=== PATIENT | male | born 1995 | race Caucasian/White ===

== ENCOUNTER 2017-01-27 11:58 | Emergency (ER) | payer OTHER ==
[2017-01-27 12:15] VITALS: O2SAT 98
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
[2017-01-27 12:50] LABS: COMPLETE URINE MICROSCOPIC? YES; Collection Type CCMS
[2017-01-27 13:09] LABS: Bacteria MODERATE /HPF (NEGATIVE); Mucus MODERATE /HPF (NEGATIVE); WBC 0-2 /HPF (0-5)
[2017-01-27] MEDS ORDERED: TYLENOL 325 MG PO STA (13:14)
[2017-01-27] MEDS ORDERED: TYLENOL 325 MG ONE (13:17)
[2017-01-27 13:47] VITALS: BP 138/90; PULSE 90
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
== END 2017-01-27 13:45 | disposition home or self-care (01) ==
LOC: ED 11:58
DX: S00.83XA Contusion of other part of head, initial encounter (principal); R51 Headache; S61.215A Laceration without foreign body of left ring finger without damage to nail, initial encounter; Y08.89XA Assault by other specified means, initial encounter
CPT/HCPCS: 70450; 70486; 81000; 99284; A9270-GY

== ENCOUNTER 2019-09-28 17:30 | Observation (INO) | payer BC, OTHER ==
[2019-09-28] MEDS ORDERED: CLINDAMYCIN-D5W 600 MG/50 ML*** 600 MG/50 ML BAG IV STA (17:59)
[2019-09-28] MEDS ORDERED: BENADRYL 50 MG/ML IV ONE (18:00)
[2019-09-28] MEDS ORDERED: MORPHINE SULFATE 4 MG INJ IV ONE (18:00)
[2019-09-28] MEDS ORDERED: TORAdol 30 mg Injection IV ONE (18:00)
--- NOTE | 2019-09-28 18:03 | ERPHSYRPT ---
- History of Present Illness Time Seen by Provider: 09/28/19 17:40 Source: patient Exam Limitations: no limitations Patient Subjective Stated Complaint: pt here for an abscess to right wrist area since saturday. he is unsure of what caused it, no fever, Triage Nursing Assessment: pt alert,walked in, resp easy, skin w/d/p. has abscess to right wrist that is dried serous drainage, right forearm red,warm and swollen Physician History: Patient has red, swollen right forearm for the past three days. He does not recall any injuries or bites by any animals or insects. Timing/Duration: day(s) (3) Quality: painful Severity: severe Location: extremities (right forearm) Possible Causes: no cause identified Modifying Factors: Worsens With: other (palpation exacerbates the pain) Associated Symptoms: blisters (single at the right wrist ), change in skin texture (left forearm), swelling/mass/lumps (left forearm), No difficulty breathing, No fever, No flushing, No headache, No hives, No jaundice, No malaise , No nasal congestion, No numbness, No pallor, No paresthesia, No petechiae, No rash, No sore throat, No tingling Allergies/Adverse Reactions: Penicillins Allergy (Verified 09/28/19 17:43) Home Medications: PANTOPRAZOLE 40 mg Tablet [Protonix 40MG Tablet] 40 mg DAILY 09/28/19 [ History] Sertraline HCl [Zoloft] 100 mg DAILY 09/28/19 [History] Hx Tetanus, Diphtheria Vaccination/Date Given: No Hx Influenza Vaccination/Date Given: No Hx Pneumococcal Vaccination/Date Given: No Immunizations Up to Date: Yes - Review of Systems Constitutional: No Fever, No Chills, No Fatigue Eyes: No Eye Pain, No Vision Changes Ears, Nose, & Throat: No Symptoms Respiratory: No Cough, No Dyspnea Cardiac: No Chest Pain, No Edema, No Syncope Abdominal/Gastrointestinal: No Abdominal Pain, No Nausea, No Vomiting, No Diarrhea Genitourinary Symptoms: No Dysuria, No Flank Pain Musculoskeletal: No Back Pain, No Neck Pain Skin: Induration (right forearm), No Rash Neurological: No Dizziness, No Focal Weakness, No Sensory Changes Psychological: No Symptoms Endocrine: No Symptoms Hematologic/Lymphatic: No Easy Bleeding, No Easy Bruising All Other Systems: Reviewed and Negative - Past Medical History Pertinent Past Medical History: Yes Neurological History: No Pertinent History ENT History: No Pertinent History Cardiac History: No Pertinent History Respiratory History: No Pertinent History Endocrine Medical History: No Pertinent History Musculoskeletal History: No Pertinent History, Other GI Medical History: GERD History: No Pertinent History Psycho-Social History: Depression Male Reproductive Disorders: No Pertinent History Other Medical History: heart murmur - Past Surgical History Past Surgical History: Yes Neuro Surgical History: No Pertinent History Cardiac: No Pertinent History Respiratory: No Pertinent History Gastrointestinal: No Pertinent History Genitourinary: No Pertinent History Musculoskeletal: Orthopedic Surgery Male Surgical History: No Pertinent History Other Surgical History: finger x2 - Social History Smoking Status: Current every day smoker How long have you smoked: 4 YEARS Exposure to second hand smoke: Yes Drug Use: none Patient Lives Alone: No - Nursing Vital Signs Nursing Vital Signs: Pain Scale Pain Intensity 7 - Physical Exam General Appearance: no apparent distress, alert Eye Exam: PERRL/EOMI, eyes nml inspection Ears, Nose, Throat Exam: normal ENT inspection, pharynx normal, moist mucous membranes Neck Exam: normal inspection, non-tender, supple, full range of motion Respiratory Exam: normal breath sounds, lungs clear, airway intact, No respiratory distress Cardiovascular Exam: regular rate/rhythm, normal heart sounds, capillary refill <2 sec Gastrointestinal/Abdomen Exam: soft, No tenderness, No mass Back Exam: normal inspection, normal range of motion, No CVA tenderness, No vertebral tenderness Extremity Exam: normal inspection, normal range of motion Neurologic Exam: alert, oriented x 3, cooperative, perinatal coordinator II-XII nml as tested, normal mood/affect, sensation nml, No motor deficits, No sensory deficit Skin Exam: normal color, warm, dry, other (induration and erythema from the dorsum of the hand over the second metacarpal to erythema and induration of the volar aspect on the right forearm), No petechiae, No jaundice, No cyanosis, No laceration SpO2 Interpretation: normal O2 Delivery: Room Air Procedures - Incision and Drainage Timeout: Performed Anesthesia: 1% Lidocaine cc's of anesthesia: 5 Blade Size: scalpel I & D Procedure: culture obtained, other (incision made over the single blister over the volar wrist; only purulent material expunged from the ulnar side of the blister at the site of the injection of the lidocaine with pressure around the area) Results: small amount pus (very minimal) - Course Nursing assessment & vital signs reviewed: Yes Ordered Tests: Active Orders 24 hr Category Date Time Status CBC W DIFF Stat Lab 09/28/19 18:15 Completed CMP Stat Lab 09/28/19 18:15 Completed CULTURE,ABSCESS Stat Lab 09/28/19 Uncollected Lactic Acid Stat Lab 09/28/19 17:59 Completed PROTIME WITH INR Stat Lab 09/28/19 18:15 Completed Transfer Order Routine Transfer 09/28/19 Ordered Medication Summary Discontinued Medications Generic Name Dose Route Start Last Admin Trade Name Freq PRN Reason Stop Dose Admin Diphenhydramine HCl 25 mg 09/28/19 18:00 09/28/19 18:05 Benadryl 50 Mg/Ml IV 09/28/19 18:01 25 mg STAT ONE Administration Diphenhydramine HCl Confirm 09/28/19 18:04 Benadryl 50 Mg/Ml Administered 09/28/19 18:05 Dose 50 mg .ROUTE .STK-MED ONE Clindamycin HCl/Dextrose 600 mg in 50 mls @ 100 mls/hr 09/28/19 17:59 18:48 Clindamycin-D5w 600 Mg/50 Ml IV 09/28/19 18:28 Infused STAT STA Infusion Clindamycin HCl/Dextrose Confirm 09/28/19 18:04 Clindamycin-D5w 600 Mg/50 Ml Administered 09/28/19 18:05 Dose 600 mg in 50 mls @ ud IV .STK-MED ONE Ketorolac Tromethamine 30 mg 09/28/19 18:00 09/28/19 18:05 Toradol 30 Mg Injection IV 09/28/19 18:01 30 mg STAT ONE Administration Ketorolac Tromethamine Confirm 09/28/19 18:04 Toradol 30 Mg Injection Administered 09/28/19 18:05 Dose 30 mg .ROUTE .STK-MED ONE Morphine Sulfate 4 mg 09/28/19 18:00 09/28/19 18:06 Morphine Sulfate 4 Mg Inj IV 09/28/19 18:01 4 mg STAT ONE Administration Morphine Sulfate Confirm 09/28/19 18:04 Morphine Sulfate 4 Mg Inj Administered 09/28/19 18:05 Dose 4 mg .ROUTE .STK-MED ONE Lab/Rad Data: Laboratory Result Diagrams 09/28/19 18:15 09/28/19 18:15 Laboratory Results 09/28/19 09/28/19 09/28/19 Range/Units 18:15 18:15 18:15 WBC 7.8 (4.0-10.5) K/mm3 RBC 4.63 (4.1-5.6) M/mm3 Hgb 13.6 (12.5-18.0) gm/dl Hct 40.7 L (42-50) % MCV 87.9 (78-100) fl MCH 29.4 (26-32) pg MCHC 33.4 (32-36) g/dl RDW 13.1 (11.5-14.0) % Plt Count 202 (150-450) K/mm3 MPV 9.7 H (6-9.5) fl Gran % 62.7 (36.0-66.0) % Eos # (Auto) 0.15 (0-0.5) Absolute Lymphs (auto) 1.75 (1.0-4.6) Absolute Monos (auto) 0.99 (0.0-1.3) Lymphocytes % 22.4 L (24.0-44.0) % Monocytes % 12.7 H (0.0-12.0) % Eosinophils % 1.9 (0.00-5.0) % Basophils % 0.3 (0.0-0.4) % Absolute Granulocytes 4.90 (1.4-6.9) Basophils # 0.02 (0-0.4) PT 14.4 H (8.83-12.87) SECONDS INR 1.27 (0.8-3.0) Sodium 139 (137-145) mmol/L Potassium 3.5 (3.5-5.1) mmol/L Chloride 101 (98-107) mmol/L Carbon Dioxide 29 (22-30) mmol/L Anion Gap 12.2 (5-15) MEQ/L BUN 14 (9-20) mg/dL Creatinine 0.81 (0.66-1.25) mg/dL Estimated GFR > 60.0 ML/MIN Glucose 86 (74-106) mg/dL Lactic Acid (0.4-2.0) Calcium 9.3 (8.4-10.2) mg/dL Total Bilirubin 1.00 (0.2-1.3) mg/dL AST 31 (17-59) U/L ALT 18 (0-50) U/L Alkaline Phosphatase 63 (38-126) U/L Serum Total Protein 7.7 (6.3-8.2) g/dL Albumin 4.1 (3.5-5.0) g/dL 09/28/19 Range/Units 17:59 WBC (4.0-10.5) K/mm3 RBC (4.1-5.6) M/mm3 Hgb (12.5-18.0) gm/dl Hct (42-50) % MCV (78-100) fl MCH (26-32) pg MCHC (32-36) g/dl RDW (11.5-14.0) % Plt Count (150-450) K/mm3 MPV (6-9.5) fl Gran % (36.0-66.0) % Eos # (Auto) (0-0.5) Absolute Lymphs (auto) (1.0-4.6) Absolute Monos (auto) (0.0-1.3) Lymphocytes % (24.0-44.0) % Monocytes % (0.0-12.0) % Eosinophils % (0.00-5.0) % Basophils % (0.0-0.4) % Absolute Granulocytes (1.4-6.9) Basophils # (0-0.4) PT (8.83-12.87) SECONDS INR (0.8-3.0) Sodium (137-145) mmol/L Potassium (3.5-5.1) mmol/L Chloride (98-107) mmol/L Carbon Dioxide (22-30) mmol/L Anion Gap (5-15) MEQ/L BUN (9-20) mg/dL Creatinine (0.66-1.25) mg/dL Estimated GFR ML/MIN Glucose (74-106) mg/dL Lactic Acid 1.0 (0.4-2.0) Calcium (8.4-10.2) mg/dL Total Bilirubin (0.2-1.3) mg/dL AST (17-59) U/L ALT (0-50) U/L Alkaline Phosphatase (38-126) U/L Serum Total Protein (6.3-8.2) g/dL Albumin (3.5-5.0) g/dL - Progress Progress: unchanged Progress Note: 09/28/19 18:40 Due to the size of the cellulitis encompassing the entire volar aspect of the right forearm, patient requires multiple doses of IV antibiotics to allow oral antibiotics to become more effective as an outpatient, so patient will be placed in observation to [facility]. Discussed with : Alex (@18:09, discussed the patient with Dr Nolasco, patient's physician and hospitalist. Dr Nolasco accepted the patient for observation to the hospital for continued IV antibiotic therapy) Counseled pt/family regarding: lab results, diagnosis, need for follow-up - Departure Departure Disposition: Observation (to [facility]) Clinical Impression: Cellulitis of right forearm, Elevated blood pressure reading without diagnosis of hypertension Condition: Fair Critical Care Time: No Referrals: EDA NOLASCO MD [Primary Care Provider] - Instructions: MRSA (DC), Cellulitis (Skin Infection), Adult (DC)
[2019-09-28] MEDS ORDERED: MORPHINE SULFATE 4 MG INJ ONE (18:04)
[2019-09-28] MEDS ORDERED: TORAdol 30 mg Injection ONE (18:04)
[2019-09-28] MEDS ORDERED: BENADRYL 50 MG/ML ONE (18:04)
[2019-09-28] MEDS ORDERED: CLINDAMYCIN-D5W 600 MG/50 ML*** 600 MG/50 ML BAG IV ONE (18:04)
[2019-09-28 18:51] LABS: BASOPHIL % 0.3 % (0.0-0.4); Basophil (Absolute #) 0.02 (0-0.4); Eosinophil % 1.9 % (0.00-5.0); Eosinophil (Absolute #) 0.15 (0-0.5); Hematocrit 40.7 % (42-50); Hemoglobin 13.6 gm/dl (12.5-18.0); Lymphocyte (Absolute #) 1.75 (1.0-4.6); Lymphocytes % 22.4 % (24.0-44.0); Mean Cell Volume 87.9 fl (78-100); Mean Corpuscular Hemoglobin 29.4 pg (26-32); Mean Corpuscular Hgb Concent. 33.4 g/dl (32-36); Mean Platelet Volume 9.7 fl (6-9.5); Monocyte (Absolute #) 0.99 (0.0-1.3); Monocytes % 12.7 % (0.0-12.0); Neutrophil % 62.7 % (36.0-66.0); Platelet Count 202 K/mm3 (150-450); Red Blood Count 4.63 M/mm3 (4.1-5.6); Red Cell Distribution Width 13.1 % (11.5-14.0); White Blood Count 7.8 K/mm3 (4.0-10.5)
[2019-09-28 19:04] LABS: INR 1.27 (0.8-3.0); PROTIME 14.4 SECONDS (8.83-12.87)
[2019-09-28 19:09] LABS: ALBUMIN 4.1 g/dL (3.5-5.0); ALKALINE PHOSPHATASE 63 U/L (38-126); ANION GAP 12.2 MEQ/L (5-15); BLOOD UREA NITROGEN 14 mg/dL (9-20); CHLORIDE 101 mmol/L (98-107); Calcium 9.3 mg/dL (8.4-10.2); Carbon Dioxide 29 mmol/L (22-30); Creatinine 1 0.81 mg/dL (0.66-1.25); Glucose 86 mg/dL (74-106); Potassium 3.5 mmol/L (3.5-5.1); SGOT/AST 31 U/L (17-59); SGPT/ALT 18 U/L (0-50); SODIUM 139 mmol/L (137-145); Total Protein 7.7 g/dL (6.3-8.2)
[2019-09-28] MEDS ORDERED: BENADRYL 50 MG/ML IV PRN (19:32)
[2019-09-28] MEDS ORDERED: TYLENOL 325 MG PO PRN (19:32)
[2019-09-28] MEDS: Sodium Chloride 0.9% 1000 ML 1,000 ML IV SCH (20:07)
[2019-09-28] MEDS: TORAdol 30 mg Injection IV PRN (21:34)
[2019-09-28] MEDS: Pepcid 20 MG PO SCH (21:36)
[2019-09-28] MEDS: CLINDAMYCIN-D5W 600 MG/50 ML*** 600 MG/50 ML BAG IV SCH (21:48)
[2019-09-29] MEDS: CLINDAMYCIN-D5W 600 MG/50 ML*** 600 MG/50 ML BAG IV SCH ×3 (00:01→20:59)
[2019-09-29 05:16] LABS: Absolute Neutrophil Ct (ANC) 5.57 (1.4-6.9); BASOPHIL % 0.4 % (0.0-0.4); Basophil (Absolute #) 0.03 (0-0.4); Eosinophil % 2.4 % (0.00-5.0); Hematocrit 42.1 % (42-50); Hemoglobin 14.2 gm/dl (12.5-18.0); Lymphocyte (Absolute #) 1.53 (1.0-4.6); Lymphocytes % 18.7 % (24.0-44.0); Mean Cell Volume 86.6 fl (78-100); Mean Corpuscular Hemoglobin 29.2 pg (26-32); Mean Corpuscular Hgb Concent. 33.7 g/dl (32-36); Mean Platelet Volume 9.8 fl (6-9.5); Monocyte (Absolute #) 0.86 (0.0-1.3); Monocytes % 10.5 % (0.0-12.0); Platelet Count 204 K/mm3 (150-450); Red Blood Count 4.86 M/mm3 (4.1-5.6); Red Cell Distribution Width 13.2 % (11.5-14.0); White Blood Count 8.2 K/mm3 (4.0-10.5)
[2019-09-29] MEDS: Sodium Chloride 0.9% 1000 ML 1,000 ML IV SCH ×2 (06:35→17:39)
--- NOTE | 2019-09-29 09:35 | PCM.HP ---
History of Present Illness - Chief Complaint Chief Complaint: right forearm pain and swelling History of Present Illness: is a 23 year old male came to ER with C/O red, swollen right forearm for the past three days. He does not recall any injuries or bites by any animals or insects. Timing/Duration: day(s) (3) Quality: painful Severity: severe Location: extremities (right forearm) Possible Causes: no cause identified Modifying Factors: Worsens With: other (palpation exacerbates the pain) Associated Symptoms: blisters (single at the right wrist ), change in skin texture (left forearm), swelling/mass/lumps (left forearm), No difficulty breathing, No fever, No flushing, No headache, No hives, No jaundice, No malaise , No nasal congestion, No numbness, No pallor, No paresthesia, No petechiae, No rash, No sore throat, No tingling - Review of Systems Constitutional: No Fever, No Chills Eyes: No Symptoms Ears, Nose, & Throat: No Symptoms Respiratory: No Cough, No Short Of Breath Cardiac: No Chest Pain, No Edema, No Syncope Abdominal/Gastrointestinal: No Abdominal Pain, No Nausea, No Vomiting, No Diarrhea Genitourinary Symptoms: No Dysuria Musculoskeletal: No Back Pain, No Neck Pain Skin: Cellulitis, Induration, No Rash Neurological: No Dizziness, No Focal Weakness, No Sensory Changes Psychological: No Symptoms Endocrine: No Symptoms Hematologic/Lymphatic: No Symptoms Immunological/Allergic: No Symptoms Medications & Allergies Home Medications: Home Medication List PANTOPRAZOLE 40 mg Tablet [Protonix 40MG Tablet] 40 mg DAILY 09/28/19 [ History Confirmed 09/28/19] Sertraline HCl [Zoloft] 100 mg DAILY 09/28/19 [History Confirmed 09/28/19] Allergies/Adverse Reactions: Allergies Allergy/AdvReac Type Severity Reaction Status Date / Time Penicillins Allergy Verified 09/28/19 17:43 - Past Medical History Past Medical History: Yes Neurological History: No Pertinent History ENT History: No Pertinent History Cardiac History: No Pertinent History Respiratory History: No Pertinent History Endocrine Medical History: No Pertinent History Musculoskelatal History: No Pertinent History, Other GI Medical History: GERD History: No Pertinent History Pyscho-Social History: Depression Male Reproductive Disorders: No Pertinent History Comment: heart murmur - Past Surgical History Past Surgical History: Yes Neuro Surgical History: No Pertinent History Cardiac History: No Pertinent History Respiratory Surgery: No Pertinent History GI Surgical History: No Pertinent History Genitourinary Surgical Hx: No Pertinent History Musculskeletal Surgical Hx: Orthopedic Surgery Male Surgical History: No Pertinent History Other Surgical History: finger x2 - Social History Smoking Status: Current every day smoker How long have you smoked: 4 YEARS Exposure to second hand smoke: Yes Alcohol: Occasionally Drug Use: none - Physical Exam Vital Signs: Vital Signs - 24 hr Temp Pulse Resp BP Pulse Ox 09/29/19 08:00 98.2 F 62 16 126/80 98 09/29/19 04:00 97.7 F 62 16 129/81 98 09/29/19 00:00 98.1 F 67 16 124/78 98 09/28/19 20:04 98.2 F 86 18 155/98 98 09/28/19 19:36 98.2 F 86 20 155/98 98 General Appearance: no apparent distress, alert Neurologic Exam: alert, oriented x 3, cooperative, normal mood/affect, nml cerebellar function, nml station & gait, sensation nml, No motor deficits Eye Exam: PERRL/EOMI, eyes nml inspection Ears, Nose, Throat Exam: normal ENT inspection, TMs normal, pharynx normal, moist mucous membranes Neck Exam: normal inspection, non-tender, supple, full range of motion Respiratory Exam: normal breath sounds, lungs clear, No respiratory distress Cardiovascular Exam: regular rate/rhythm, normal heart sounds, normal peripheral pulses Gastrointestinal/Abdomen Exam: soft, normal bowel sounds, No tenderness, No mass Back Exam: normal inspection, normal range of motion, No CVA tenderness, No vertebral tenderness Extremity Exam: normal inspection, normal range of motion, pelvis stable, inflammation, swelling, tenderness Skin Exam: normal color, warm, dry, No rash Wound Assessment: Skin/Wound Assessment Wound/Incision Assessment Start: 09/28/19 19: 33 Text: Status: Active Freq: Q6H Protocol: Document 09/29/19 02:00 EG (Rec: 09/29/19 02:45 EG [id number]) Wound/Incision Assessment Right Wrist Wound Assessment Shift Assessment Wound Type abscess Dressing Status Dry & Intact Primary Dressing Gauze Pads Lymphatic Exam: No adenopathy Results - Labs Lab/Micro Results: Lab Results-Last 24 Hours 09/28/19 09/28/19 09/28/19 Range/Units 17:59 18:15 18:15 WBC 7.8 (4.0-10.5) K/mm3 RBC 4.63 (4.1-5.6) M/mm3 Hgb 13.6 (12.5-18.0) gm/dl Hct 40.7 L (42-50) % MCV 87.9 (78-100) fl MCH 29.4 (26-32) pg MCHC 33.4 (32-36) g/dl RDW 13.1 (11.5-14.0) % Plt Count 202 (150-450) K/mm3 MPV 9.7 H (6-9.5) fl Gran % 62.7 (36.0-66.0) % Eos # (Auto) 0.15 (0-0.5) Absolute Lymphs (auto) 1.75 (1.0-4.6) Absolute Monos (auto) 0.99 (0.0-1.3) Lymphocytes % 22.4 L (24.0-44.0) % Monocytes % 12.7 H (0.0-12.0) % Eosinophils % 1.9 (0.00-5.0) % Basophils % 0.3 (0.0-0.4) % Absolute Granulocytes 4.90 (1.4-6.9) Basophils # 0.02 (0-0.4) PT (8.83-12.87) SECONDS INR (0.8-3.0) Sodium 139 (137-145) mmol/L Potassium 3.5 (3.5-5.1) mmol/L Chloride 101 (98-107) mmol/L Carbon Dioxide 29 (22-30) mmol/L Anion Gap 12.2 (5-15) MEQ/L BUN 14 (9-20) mg/dL Creatinine 0.81 (0.66-1.25) mg/dL Estimated GFR > 60.0 ML/MIN Glucose 86 (74-106) mg/dL Lactic Acid 1.0 (0.4-2.0) Calcium 9.3 (8.4-10.2) mg/dL Total Bilirubin 1.00 (0.2-1.3) mg/dL AST 31 (17-59) U/L ALT 18 (0-50) U/L Alkaline Phosphatase 63 (38-126) U/L Serum Total Protein 7.7 (6.3-8.2) g/dL Albumin 4.1 (3.5-5.0) g/dL 09/28/19 09/29/19 Range/Units 18:15 04:47 WBC 8.2 (4.0-10.5) K/mm3 RBC 4.86 (4.1-5.6) M/mm3 Hgb 14.2 (12.5-18.0) gm/dl Hct 42.1 (42-50) % MCV 86.6 (78-100) fl MCH 29.2 (26-32) pg MCHC 33.7 (32-36) g/dl RDW 13.2 (11.5-14.0) % Plt Count 204 (150-450) K/mm3 MPV 9.8 H (6-9.5) fl Gran % 68.0 H (36.0-66.0) % Eos # (Auto) 0.20 (0-0.5) Absolute Lymphs (auto) 1.53 (1.0-4.6) Absolute Monos (auto) 0.86 (0.0-1.3) Lymphocytes % 18.7 L (24.0-44.0) % Monocytes % 10.5 (0.0-12.0) % Eosinophils % 2.4 (0.00-5.0) % Basophils % 0.4 (0.0-0.4) % Absolute Granulocytes 5.57 (1.4-6.9) Basophils # 0.03 (0-0.4) PT 14.4 H (8.83-12.87) SECONDS INR 1.27 (0.8-3.0) Sodium (137-145) mmol/L Potassium (3.5-5.1) mmol/L Chloride (98-107) mmol/L Carbon Dioxide (22-30) mmol/L Anion Gap (5-15) MEQ/L BUN (9-20) mg/dL Creatinine (0.66-1.25) mg/dL Estimated GFR ML/MIN Glucose (74-106) mg/dL Lactic Acid (0.4-2.0) Calcium (8.4-10.2) mg/dL Total Bilirubin (0.2-1.3) mg/dL AST (17-59) U/L ALT (0-50) U/L Alkaline Phosphatase (38-126) U/L Serum Total Protein (6.3-8.2) g/dL Albumin (3.5-5.0) g/dL Assessment/Plan (1) Cellulitis of right forearm Current Visit: Yes Status: Acute Assessment & Plan: Last Vital Signs Temp 98.2 F 09/29/19 08:00 Pulse 62 09/29/19 08:00 Resp 16 09/29/19 08:00 BP 126/80 09/29/19 08:00 Pulse Ox 98 09/29/19 08:00 Allergies Penicillins Allergy (Verified 09/28/19 17:43) Active Medications Acetaminophen (Tylenol 325 Mg) 325 mg PO Q4H PRN PRN PRN Reason: PAIN, FEVER, HEADACHE Stop: 10/28/19 19:31 Diphenhydramine HCl (Benadryl 50 Mg/Ml) 25 mg IV Q6H PRN PRN PRN Reason: ITCHING Stop: 10/28/19 19:31 Famotidine (Pepcid 20 Mg) 20 mg PO BID DOUGLAS Stop: 10/28/19 21:59 Last Admin: 09/28/19 21:36 Dose: 20 mg Clindamycin HCl/Dextrose (Clindamycin-D5w 600 Mg/50 Ml) 600 mg in 50 mls @ 100 mls/hr IV Q8HT DOUGLAS Stop: 10/28/19 21:59 Last Admin: 09/29/19 00:01 Dose: 100 mls/hr Sodium Chloride (Sodium Chloride 0.9% 1000 Ml) 1,000 mls @ 100 mls/hr IV .Q10H DOUGLAS Stop: 10/28/19 19:31 Last Admin: 09/29/19 06:35 Dose: 100 mls/hr Ketorolac Tromethamine (Toradol 30 Mg Injection) 30 mg IV Q6H PRN PRN PRN Reason: PAIN Stop: 09/29/19 18:29 Last Admin: 09/28/19 21:34 Dose: 30 mg Pantoprazole Sodium (Protonix 40mg Tablet) 40 mg PO DAILY DOUGLAS Stop: 10/29/19 09:59 Sertraline HCl (Zoloft 50 Mg Tablet) 100 mg PO DAILY DOUGLAS Stop: 10/29/19 09:59 Intake & Output 09/28/19 09/29/19 11:59 11:59 Intake Total 1945 Output Total 350 Balance 1595 Weight 78 kg Orders 09/28/19 20:32 Nutritional Admission Screen 09/29/19 10:00 PANTOPRAZOLE 40 mg Tablet [Protonix 40MG Tablet] 40 mg PO DAILY Sertraline HCl 50 mg [Zoloft 50 mg Tablet] 100 mg PO DAILY Lab Tests 09/28/19 09/28/19 09/28/19 17:59 18:15 18:15 WBC 7.8 RBC 4.63 Hgb 13.6 Hct 40.7 L MCV 87.9 MCH 29.4 MCHC 33.4 RDW 13.1 Plt Count 202 MPV 9.7 H Gran % 62.7 Eos # (Auto) 0.15 Absolute Lymphs (auto) 1.75 Absolute Monos (auto) 0.99 Lymphocytes % 22.4 L Monocytes % 12.7 H Eosinophils % 1.9 Basophils % 0.3 Absolute Granulocytes 4.90 Basophils # 0.02 PT INR Sodium 139 Potassium 3.5 Chloride 101 Carbon Dioxide 29 Anion Gap 12.2 BUN 14 Creatinine 0.81 Estimated GFR > 60.0 Glucose 86 Lactic Acid 1.0 Calcium 9.3 Total Bilirubin 1.00 AST 31 ALT 18 Alkaline Phosphatase 63 Serum Total Protein 7.7 Albumin 4.1 09/28/19 09/29/19 18:15 04:47 WBC 8.2 RBC 4.86 Hgb 14.2 Hct 42.1 MCV 86.6 MCH 29.2 MCHC 33.7 RDW 13.2 Plt Count 204 MPV 9.8 H Gran % 68.0 H Eos # (Auto) 0.20 Absolute Lymphs (auto) 1.53 Absolute Monos (auto) 0.86 Lymphocytes % 18.7 L Monocytes % 10.5 Eosinophils % 2.4 Basophils % 0.4 Absolute Granulocytes 5.57 Basophils # 0.03 PT 14.4 H INR 1.27 Sodium Potassium Chloride Carbon Dioxide Anion Gap BUN Creatinine Estimated GFR Glucose Lactic Acid Calcium Total Bilirubin AST ALT Alkaline Phosphatase Serum Total Protein Albumin Code(s): L03.113 - CELLULITIS OF RIGHT UPPER LIMB
[2019-09-29] MEDS ORDERED: ZOLOFT 50 MG TABLET PO SCH (10:00)
[2019-09-29] MEDS ORDERED: Protonix 40MG Tablet PO SCH (10:00)
[2019-09-29] MEDS: Pepcid 20 MG PO SCH ×2 (11:50→20:59)
[2019-09-29] MEDS: TORAdol 30 mg Injection IV PRN (13:55)
[2019-09-29] MEDS ORDERED: TORAdol 30 mg Injection IV PRN (20:46)
[2019-09-30] MEDS: CLINDAMYCIN-D5W 600 MG/50 ML*** 600 MG/50 ML BAG IV SCH (05:31)
[2019-09-30 07:46] VITALS: BP 120/77; PULSE 62; O2SAT 96
--- NOTE | 2019-09-30 08:24 | PCM.DS ---
Discharge Summary Date of Admission: 09/28/19 19:27 Admitting Physician: EDA NOLASCO Primary Care Provider: EDA NOLASOC Allergies Allergies Penicillins Allergy (Verified 09/28/19 17:43) Hospital Summary - Hospital Course Hospital Course: Chief Complaint Diagnosis right forearm pain and swelling Allergies Allergy/AdvReac Type Severity Reaction Status Date / Time Penicillins Allergy Verified 09/28/19 17:43 Vital Signs (Last 24 hours) Temp Pulse Resp BP Pulse Ox 09/30/19 07:46 97.8 F 62 16 120/77 96 09/30/19 03:38 98.2 F 51 L 16 118/72 98 09/30/19 00:03 98.1 F 59 L 16 120/76 98 09/29/19 19:46 97.5 F 77 16 125/76 97 09/29/19 16:00 98.5 F 69 16 127/80 97 09/29/19 12:00 98.3 F 60 18 124/70 98 Home Medications Medication Instructions Recorded Confirmed Last Taken Type PANTOPRAZOLE 40 mg Tablet 40 mg DAILY 09/28/19 09/28/19 09/28/19 History [Protonix 40MG Tablet] Sertraline HCl [Zoloft] 100 mg DAILY 09/28/19 09/28/19 09/28/19 History Current Medications Generic Name Dose Route Start Last Admin Trade Name Freq PRN Reason Stop Dose Admin Acetaminophen 325 mg 09/28/19 19:32 Tylenol 325 Mg PO 10/28/19 19:31 Q4H PRN PRN PAIN, FEVER, HEADACHE Diphenhydramine HCl 25 mg 09/28/19 19:32 Benadryl 50 Mg/Ml IV 10/28/19 19:31 Q6H PRN PRN ITCHING Famotidine 20 mg 09/28/19 22:00 09/29/19 20:59 Pepcid 20 Mg PO 10/28/19 21:59 20 mg BID DOUGLAS Administration Clindamycin HCl/Dextrose 600 mg in 50 mls @ 100 mls/hr 09/28/19 22:00 05:31 Clindamycin-D5w 600 Mg/50 Ml IV 10/28/19 21:59 100 mls/hr Q8HT DOUGLAS Administration Sodium Chloride 1,000 mls @ 100 mls/hr 09/28/19 19:32 09/29/19 17:39 Sodium Chloride 0.9% 1000 Ml IV 10/28/19 19:31 100 mls/hr .Q10H DOUGLAS Administration Ketorolac Tromethamine 30 mg 09/29/19 20:46 09/29/19 20:55 Toradol 30 Mg Injection IV 10/04/19 20:45 30 mg Q6H PRN PRN Administration PAIN Pantoprazole Sodium 40 mg 09/29/19 10:00 09/29/19 11:50 Protonix 40mg Tablet PO 10/29/19 09:59 40 mg DAILY DOUGLAS Administration Sertraline HCl 100 mg 09/29/19 10:00 09/29/19 11:50 Zoloft 50 Mg Tablet PO 10/29/19 09:59 100 mg DAILY DOUGLAS Administration Discontinued Medications Generic Name Dose Route Start Last Admin Trade Name Freq PRN Reason Stop Dose Admin Diphenhydramine HCl 25 mg 09/28/19 18:00 09/28/19 18:05 Benadryl 50 Mg/Ml IV 09/28/19 18:01 25 mg STAT ONE Administration Diphenhydramine HCl Confirm 09/28/19 18:04 Benadryl 50 Mg/Ml Administered 09/28/19 18:05 Dose 50 mg .ROUTE .STK-MED ONE Clindamycin HCl/Dextrose 600 mg in 50 mls @ 100 mls/hr 09/28/19 17:59 18:48 Clindamycin-D5w 600 Mg/50 Ml IV 09/28/19 18:28 Infused STAT STA Infusion Clindamycin HCl/Dextrose Confirm 09/28/19 18:04 Clindamycin-D5w 600 Mg/50 Ml Administered 09/28/19 18:05 Dose 600 mg in 50 mls @ ud IV .STK-MED ONE Ketorolac Tromethamine 30 mg 09/28/19 18:00 09/28/19 18:05 Toradol 30 Mg Injection IV 09/28/19 18:01 30 mg STAT ONE Administration Ketorolac Tromethamine Confirm 09/28/19 18:04 Toradol 30 Mg Injection Administered 09/28/19 18:05 Dose 30 mg .ROUTE .STK-MED ONE Ketorolac Tromethamine 30 mg 09/29/19 02:17 09/29/19 13:55 Toradol 30 Mg Injection IV 09/29/19 18:29 30 mg Q6H PRN PRN Administration PAIN Morphine Sulfate 4 mg 09/28/19 18:00 09/28/19 18:06 Morphine Sulfate 4 Mg Inj IV 09/28/19 18:01 4 mg STAT ONE Administration Morphine Sulfate Confirm 09/28/19 18:04 Morphine Sulfate 4 Mg Inj Administered 09/28/19 18:05 Dose 4 mg .ROUTE .STK-MED ONE Intake & Output (Last 24 hours) 09/27/19 09/28/19 09/29/19 09/30/19 11:59 11:59 11:59 11:59 Intake Total 1945 3209 Output Total 350 Balance 1595 3209 Weight 78 kg 71.7 kg Microbiology Results (Last 24 hours) 09/28/19 Unknown Arm - Right Lower Abscess Culture - Final Staphylococcus Aureus Orders (Last 24 hours) Category Date Time Status KETOROLAC trometh 30 mg Inj [TORAdol 30 mg Injection Med 09/29/19 20:46 Active ] 30 mg IV Q6H PRN PRN PANTOPRAZOLE 40 mg Tablet [Protonix 40MG Tablet] Med 09/29/19 10:00 Active 40 mg PO DAILY Sertraline HCl 50 mg [Zoloft 50 mg Tablet] Med 09/29/19 10:00 Active 100 mg PO DAILY Patient Care Notes (Last 24 hours) 09/29/19 20:45 Nursing Note by Kylie Juares Received call from Dr. Nolasco, new order to continue Toradol at previous dose. Initialized on 09/29/19 20:45 - END OF NOTE 09/29/19 20:39 Nursing Note by Kylie Juares Patient requesting pain relief, only active order is 325 mg tylenol, [address] Nolasco house and cell with no answer, unable to leave message. Will try again. Initialized on 09/29/19 20:39 - END OF NOTE 09/29/19 13:00 (created 09/29/19 13:55) Case Management Note by Daniela Dawkins CALLED PT'S MOM PER PT REQUEST. CALLED [employer], AND THEY REPORTED THAT THEY NEED TO CALL REGARDING PLAN. PER LUCIA BRITO, PT'S MOM, REPORTS THAT PT NO LONGER IS ON HER INSURANCE, THAT HE ONLY HAS THE [employer] HIP PLAN. ENCOURAGED PT/MOM TO CALL AND REPORT THIS TO [employer] FOR THEM TO UPDATE THEIR RECORDS. Initialized on 09/29/19 13:55 - END OF NOTE 09/29/19 09:20 (created 09/29/19 13:52) Case Management Note by Daniela Dawkins DR. ROUNDED AND EVALUATED AND DISCUSSED PLAN OF CARE WITH PT. VERBALIZED UNDERSTANDING OF ALL INFORMATION. WOUND CULTURE PENDING. CONTINUE IV ABX. NO ADDNL NEEDS IDENTIFIED AT PRESENT TIME. Initialized on 09/29/19 13:52 - END OF NOTE - Vitals & Intake/Output Vital Signs: Vital Signs Temperature 97.8 F 09/30/19 07:46 Pulse Rate 62 09/30/19 07:46 Respiratory Rate 16 09/30/19 07:46 Blood Pressure 120/77 09/30/19 07:46 O2 Sat by Pulse Oximetry 96 09/30/19 07:46 Intake & Output: Intake & Output 09/27/19 09/28/19 09/29/19 09/30/19 11:59 11:59 11:59 11:59 Intake Total 1945 3209 Output Total 350 Balance 1595 3209 Weight 78 kg 71.7 kg - Lab Result Diagrams: 09/29/19 04:47 09/28/19 18:15 Micro Results-Entire Visit: Microbiology 09/28/19 Unknown Abscess Culture - Final Arm - Right Lower Staphylococcus Aureus Discharge Exam General Appearance: no apparent distress, alert Neurologic Exam: alert, oriented x 3, cooperative, normal mood/affect, nml cerebellar function, sensation nml, No motor deficits Eye Exam: PERRL, EOMI, eyes nml inspection Ears, Nose, Throat Exam: normal ENT inspection, pharynx normal, moist mucous membranes Neck Exam: normal inspection, non-tender, supple, full range of motion Respiratory Exam: normal breath sounds, lungs clear, No respiratory distress Cardiovascular Exam: regular rate/rhythm, normal heart sounds Gastrointestinal/Abdomen Exam: soft, No tenderness, No mass Male Genitalia Exam: deferred Rectal Exam: deferred Back Exam: normal inspection, normal range of motion, No CVA tenderness, No vertebral tenderness Extremity Exam: normal inspection, normal range of motion Skin Exam: normal color, warm, dry Wound Assessment: Skin/Wound Assessment Wound/Incision Assessment Start: 09/28/19 19: 33 Text: Status: Active Freq: Q6H Protocol: Document 09/30/19 02:00 (Rec: 09/30/19 06:58 [id number]) Wound Photo Photo Taken No Final Diagnosis/Problem List - Final Discharge Diagnosis/Problem (1) Cellulitis of right forearm Current Visit: Yes Status: Acute Assessment & Plan: Chief Complaint Diagnosis right forearm pain and swelling Allergies Allergy/AdvReac Type Severity Reaction Status Date / Time Penicillins Allergy Verified 09/28/19 17:43 Vital Signs (Last 24 hours) Temp Pulse Resp BP Pulse Ox 09/30/19 07:46 97.8 F 62 16 120/77 96 09/30/19 03:38 98.2 F 51 L 16 118/72 98 09/30/19 00:03 98.1 F 59 L 16 120/76 98 09/29/19 19:46 97.5 F 77 16 125/76 97 09/29/19 16:00 98.5 F 69 16 127/80 97 09/29/19 12:00 98.3 F 60 18 124/70 98 Home Medications Medication Instructions Recorded Confirmed Last Taken Type PANTOPRAZOLE 40 mg Tablet 40 mg DAILY 09/28/19 09/28/19 09/28/19 History [Protonix 40MG Tablet] Sertraline HCl [Zoloft] 100 mg DAILY 09/28/19 09/28/19 09/28/19 History Current Medications Generic Name Dose Route Start Last Admin Trade Name Freq PRN Reason Stop Dose Admin Acetaminophen 325 mg 09/28/19 19:32 Tylenol 325 Mg PO 10/28/19 19:31 Q4H PRN PRN PAIN, FEVER, HEADACHE Diphenhydramine HCl 25 mg 09/28/19 19:32 Benadryl 50 Mg/Ml IV 10/28/19 19:31 Q6H PRN PRN ITCHING Famotidine 20 mg 09/28/19 22:00 09/29/19 20:59 Pepcid 20 Mg PO 10/28/19 21:59 20 mg BID DOUGLAS Administration Clindamycin HCl/Dextrose 600 mg in 50 mls @ 100 mls/hr 09/28/19 22:00 05:31 Clindamycin-D5w 600 Mg/50 Ml IV 10/28/19 21:59 100 mls/hr Q8HT DOUGLAS Administration Sodium Chloride 1,000 mls @ 100 mls/hr 09/28/19 19:32 09/29/19 17:39 Sodium Chloride 0.9% 1000 Ml IV 10/28/19 19:31 100 mls/hr .Q10H DOUGLAS Administration Ketorolac Tromethamine 30 mg 09/29/19 20:46 09/29/19 20:55 Toradol 30 Mg Injection IV 10/04/19 20:45 30 mg Q6H PRN PRN Administration PAIN Pantoprazole Sodium 40 mg 09/29/19 10:00 09/29/19 11:50 Protonix 40mg Tablet PO 10/29/19 09:59 40 mg DAILY DOUGLAS Administration Sertraline HCl 100 mg 09/29/19 10:00 09/29/19 11:50 Zoloft 50 Mg Tablet PO 10/29/19 09:59 100 mg DAILY DOUGLAS Administration Discontinued Medications Generic Name Dose Route Start Last Admin Trade Name Freq PRN Reason Stop Dose Admin Diphenhydramine HCl 25 mg 09/28/19 18:00 09/28/19 18:05 Benadryl 50 Mg/Ml IV 09/28/19 18:01 25 mg STAT ONE Administration Diphenhydramine HCl Confirm 09/28/19 18:04 Benadryl 50 Mg/Ml Administered 09/28/19 18:05 Dose 50 mg .ROUTE .STK-MED ONE Clindamycin HCl/Dextrose 600 mg in 50 mls @ 100 mls/hr 09/28/19 17:59 18:48 Clindamycin-D5w 600 Mg/50 Ml IV 09/28/19 18:28 Infused STAT STA Infusion Clindamycin HCl/Dextrose Confirm 09/28/19 18:04 Clindamycin-D5w 600 Mg/50 Ml Administered 09/28/19 18:05 Dose 600 mg in 50 mls @ ud IV .STK-MED ONE Ketorolac Tromethamine 30 mg 09/28/19 18:00 09/28/19 18:05 Toradol 30 Mg Injection IV 09/28/19 18:01 30 mg STAT ONE Administration Ketorolac Tromethamine Confirm 09/28/19 18:04 Toradol 30 Mg Injection Administered 09/28/19 18:05 Dose 30 mg .ROUTE .STK-MED ONE Ketorolac Tromethamine 30 mg 09/29/19 02:17 09/29/19 13:55 Toradol 30 Mg Injection IV 09/29/19 18:29 30 mg Q6H PRN PRN Administration PAIN Morphine Sulfate 4 mg 09/28/19 18:00 09/28/19 18:06 Morphine Sulfate 4 Mg Inj IV 09/28/19 18:01 4 mg STAT ONE Administration Morphine Sulfate Confirm 09/28/19 18:04 Morphine Sulfate 4 Mg Inj Administered 09/28/19 18:05 Dose 4 mg .ROUTE .STK-MED ONE Intake & Output (Last 24 hours) 09/27/19 09/28/19 09/29/19 09/30/19 11:59 11:59 11:59 11:59 Intake Total 1945 3209 Output Total 350 Balance 1595 3209 Weight 78 kg 71.7 kg Microbiology Results (Last 24 hours) 09/28/19 Unknown Arm - Right Lower Abscess Culture - Final Staphylococcus Aureus Orders (Last 24 hours) Category Date Time Status KETOROLAC trometh 30 mg Inj [TORAdol 30 mg Injection Med 09/29/19 20:46 Active ] 30 mg IV Q6H PRN PRN PANTOPRAZOLE 40 mg Tablet [Protonix 40MG Tablet] Med 09/29/19 10:00 Active 40 mg PO DAILY Sertraline HCl 50 mg [Zoloft 50 mg Tablet] Med 09/29/19 10:00 Active 100 mg PO DAILY Patient Care Notes (Last 24 hours) 09/29/19 20:45 Nursing Note by Kylie Juares Received call from Dr. Nolasco, new order to continue Toradol at previous dose. Initialized on 09/29/19 20:45 - END OF NOTE 09/29/19 20:39 Nursing Note by Kylie Juares Patient requesting pain relief, only active order is 325 mg tylenol, [address] Nolasco house and cell with no answer, unable to leave message. Will try again. Initialized on 09/29/19 20:39 - END OF NOTE 09/29/19 13:00 (created 09/29/19 13:55) Case Management Note by Daniela Dawkins CALLED PT'S MOM PER PT REQUEST. CALLED [employer], AND THEY REPORTED THAT THEY NEED TO CALL REGARDING PLAN. PER LUCIA BRITO, PT'S MOM, REPORTS THAT PT NO LONGER IS ON HER INSURANCE, THAT HE ONLY HAS THE [facility] HIP PLAN. ENCOURAGED PT/MOM TO CALL AND REPORT THIS TO [facility] FOR THEM TO UPDATE THEIR RECORDS. Initialized on 09/29/19 13:55 - END OF NOTE 09/29/19 09:20 (created 09/29/19 13:52) Case Management Note by Daniela Dawkins DR. ROUNDED AND EVALUATED AND DISCUSSED PLAN OF CARE WITH PT. VERBALIZED UNDERSTANDING OF ALL INFORMATION. WOUND CULTURE PENDING. CONTINUE IV ABX. NO ADDNL NEEDS IDENTIFIED AT PRESENT TIME. Initialized on 09/29/19 13:52 - END OF NOTE Code(s): L03.113 - CELLULITIS OF RIGHT UPPER LIMB - Discharge Discharge Date: 09/30/19 Disposition: Home, Self-Care Condition: Stable Prescriptions: New Levofloxacin [Levaquin] 500 mg PO DAILY #10 tablet Continue Sertraline HCl [Zoloft] 100 mg DAILY PANTOPRAZOLE 40 mg Tablet [Protonix 40MG Tablet] 40 mg DAILY Instructions: Animal Bites (DC) Follow up with: EDA NOLASCO MD [Primary Care Provider] - 1 Week
== END 2019-09-30 09:51 | disposition home or self-care (01) ==
LOC: ED 17:30 → MED SURG 19:27
PROVIDERS: ADMIT General Practice; ATTEND General Practice
DX: L03.113 Cellulitis of right upper limb (principal)
CPT/HCPCS: 36415; 80053; 83605; 85025; 85610; 87070; 87077; 87186; 96365; 96374; 96375; 99285; G0378; J1200; J1885; J2270; A9270-GY

== ENCOUNTER 2019-12-22 13:37 | Inpatient (IN) | payer OTHER ==
[2019-12-22] MEDS ORDERED: ROCEPHIN 1 Gm-D5w 50 ml Bag** 1 G/50 ML IVPB IV ONE ×2 (13:49→14:02)
--- NOTE | 2019-12-22 13:54 | ERPHSYRPT ---
- History of Present Illness Time Seen by Provider: 12/22/19 13:39 Source: patient, family Exam Limitations: no limitations Occurred: days ago (3) Method of Injury: unknown Quality: constant Severity of Pain-Max: moderate Severity of Pain-Current: severe Extremities Pain Location: hand: left Modifying Factors: Improves With: movement Allergies/Adverse Reactions: Penicillins Allergy (Verified 12/22/19 14:01) Home Medications: PANTOPRAZOLE 40 mg Tablet [Protonix 40MG Tablet] 40 mg PO DAILY 09/28/19 [ History] Sertraline HCl [Zoloft] 100 mg PO DAILY 09/28/19 [History] Hx Tetanus, Diphtheria Vaccination/Date Given: No Hx Influenza Vaccination/Date Given: No Hx Pneumococcal Vaccination/Date Given: No - Review of Systems Constitutional: Malaise, No Fever, No Chills Eyes: No Symptoms Ears, Nose, & Throat: No Symptoms Respiratory: No Cough, No Dyspnea Cardiac: No Chest Pain, No Edema, No Syncope Abdominal/Gastrointestinal: Nausea, Vomiting, No Abdominal Pain, No Diarrhea Genitourinary Symptoms: No Dysuria Musculoskeletal: Deformity, Joint Redness, Joint Swelling, No Back Pain, No Neck Pain Skin: Cellulitis, No Rash Neurological: No Dizziness, No Focal Weakness, No Sensory Changes Psychological: No Symptoms Endocrine: No Symptoms All Other Systems: Reviewed and Negative - Past Medical History Pertinent Past Medical History: Yes Neurological History: No Pertinent History ENT History: No Pertinent History Cardiac History: No Pertinent History Respiratory History: No Pertinent History Endocrine Medical History: No Pertinent History Musculoskeletal History: No Pertinent History, Other GI Medical History: GERD History: No Pertinent History Psycho-Social History: Depression Male Reproductive Disorders: No Pertinent History Other Medical History: heart murmur - Past Surgical History Past Surgical History: Yes Neuro Surgical History: No Pertinent History Cardiac: No Pertinent History Respiratory: No Pertinent History Gastrointestinal: No Pertinent History Genitourinary: No Pertinent History Musculoskeletal: Orthopedic Surgery Male Surgical History: No Pertinent History Other Surgical History: finger x2 - Social History Smoking Status: Current every day smoker How long have you smoked: 4 YEARS Exposure to second hand smoke: Yes Drug Use: none Patient Lives Alone: No - Nursing Vital Signs Nursing Vital Signs: Initial Vital Signs Temperature 97.4 F 12/22/19 13:45 Pulse Rate 91 H 12/22/19 13:45 Blood Pressure 124/69 12/22/19 13:45 O2 Sat by Pulse Oximetry 100 12/22/19 13:45 Pain Scale Pain Intensity 8 - Physical Exam General Appearance: alert Eyes, Ears, Nose, Throat Exam: moist mucous membranes Neck Exam: non-tender, supple Cardiovascular/Respiratory Exam: chest non-tender, normal breath sounds, regular rate/rhythm, no respiratory distress Abdominal Exam: non-tender, No guarding Back Exam: normal inspection, No vertebral tenderness Hand Exam: limited ROM (diffuse left ahnd), soft tissue tenderness, stiffness, swelling Neuro/Tendon Exam: normal sensation, normal motor functions Mental Status Exam: alert, oriented x 3, cooperative Skin Exam: normal color, warm, dry, other (redness/erythema to diffuse left hand ) - Course Nursing assessment & vital signs reviewed: Yes - Radiology Exams Left Hand X-ray Interpretation: Discussed w/ radiologist, Negative Ordered Tests: Active Orders 24 hr Category Date Time Status IV Insertion STAT Care 12/22/19 13:45 Active HAND (MINIMUM 3 VIEWS) Stat Exams 12/22/19 14:11 Completed BLOOD CULTURE Stat Lab 12/22/19 14:00 Received CBC W DIFF Stat Lab 12/22/19 13:50 Completed CMP Stat Lab 12/22/19 13:50 Completed Lactic Acid Stat Lab 12/22/19 13:55 Completed Uric Acid Stat Lab 12/22/19 13:50 Completed Urine Triage Profile Stat Lab 12/22/19 Uncollected Medication Summary Generic Name Dose Route Start Last Admin Trade Name Freq PRN Reason Stop Dose Admin Sodium Chloride 1,000 mls @ 999 mls/hr 12/22/19 14:06 12/22/19 14:17 Sodium Chloride 0.9% 1000 Ml IV 12/22/19 15:06 999 mls/hr .Q1H1M STA Administration Vancomycin HCl 1 gm in 250 mls @ 167 mls/hr 12/22/19 14:56 Vancomycin 1gm/ Ns 250ml IV 12/22/19 16:25 STAT ONE Discontinued Medications Generic Name Dose Route Start Last Admin Trade Name Freq PRN Reason Stop Dose Admin Ceftriaxone Sodium/Dextrose 1 g in 50 mls @ 100 mls/hr 12/22/19 13:49 14:22 Rocephin 1 Gm-D5w 50 Ml Bag IV 12/22/19 14:18 Infused STAT ONE Infusion Ceftriaxone Sodium/Dextrose Confirm 12/22/19 14:02 Rocephin 1 Gm-D5w 50 Ml Bag Administered 12/22/19 14:03 Dose 1 g in 50 mls @ ud IV .STK-MED ONE Sodium Chloride Confirm 12/22/19 14:16 Sodium Chloride 0.9% 1000 Ml Administered 12/22/19 14:17 Dose 1,000 mls @ ud .ROUTE .STK-MED ONE Ketorolac Tromethamine 30 mg 12/22/19 14:18 12/22/19 14:19 Toradol 30 Mg Injection IV 12/22/19 14:19 30 mg STAT ONE Administration Ketorolac Tromethamine Confirm 12/22/19 14:18 Toradol 30 Mg Injection Administered 12/22/19 14:19 Dose 30 mg .ROUTE .STK-MED ONE Lab/Rad Data: Laboratory Result Diagrams 12/22/19 13:50 12/22/19 13:50 Laboratory Results 12/22/19 12/22/19 12/22/19 Range/Units 13:55 13:50 13:50 WBC (4.0-10.5) K/mm3 RBC (4.1-5.6) M/mm3 Hgb (12.5-18.0) gm/dl Hct (42-50) % MCV (78-100) fl MCH (26-32) pg MCHC (32-36) g/dl RDW (11.5-14.0) % Plt Count (150-450) K/mm3 MPV (7.5-11.0) fl Gran % (36.0-66.0) % Eos # (Auto) (0-0.5) Absolute Lymphs (auto) (1.0-4.6) Absolute Monos (auto) (0.0-1.3) Lymphocytes % (24.0-44.0) % Monocytes % (0.0-12.0) % Eosinophils % (0.00-5.0) % Basophils % (0.0-0.4) % Absolute Granulocytes (1.4-6.9) Basophils # (0-0.4) Sodium 140 (137-145) mmol/L Potassium 3.3 L (3.5-5.1) mmol/L Chloride 99 (98-107) mmol/L Carbon Dioxide 30 (22-30) mmol/L Anion Gap 14.8 (5-15) MEQ/L BUN 5 L (9-20) mg/dL Creatinine 0.62 L (0.66-1.25) mg/dL Estimated GFR > 60.0 ML/MIN Glucose 137 H (74-106) mg/dL Lactic Acid 3.2 H (0.4-2.0) Uric Acid 2.1 L (3.5-7.2) mg/dL Calcium 9.3 (8.4-10.2) mg/dL Total Bilirubin 0.40 (0.2-1.3) mg/dL AST 29 (17-59) U/L ALT 23 (0-50) U/L Alkaline Phosphatase 99 (38-126) U/L Serum Total Protein 7.3 (6.3-8.2) g/dL Albumin 3.8 (3.5-5.0) g/dL 12/22/19 Range/Units 13:50 WBC 6.8 (4.0-10.5) K/mm3 RBC 4.58 (4.1-5.6) M/mm3 Hgb 13.4 (12.5-18.0) gm/dl Hct 40.4 L (42-50) % MCV 88.2 (78-100) fl MCH 29.3 (26-32) pg MCHC 33.2 (32-36) g/dl RDW 13.3 (11.5-14.0) % Plt Count 212 (150-450) K/mm3 MPV 10.0 (7.5-11.0) fl Gran % 67.6 H (36.0-66.0) % Eos # (Auto) 0.34 (0-0.5) Absolute Lymphs (auto) 1.26 (1.0-4.6) Absolute Monos (auto) 0.57 (0.0-1.3) Lymphocytes % 18.6 L (24.0-44.0) % Monocytes % 8.4 (0.0-12.0) % Eosinophils % 5.0 (0.00-5.0) % Basophils % 0.4 (0.0-0.4) % Absolute Granulocytes 4.59 (1.4-6.9) Basophils # 0.03 (0-0.4) Sodium (137-145) mmol/L Potassium (3.5-5.1) mmol/L Chloride (98-107) mmol/L Carbon Dioxide (22-30) mmol/L Anion Gap (5-15) MEQ/L BUN (9-20) mg/dL Creatinine (0.66-1.25) mg/dL Estimated GFR ML/MIN Glucose (74-106) mg/dL Lactic Acid (0.4-2.0) Uric Acid (3.5-7.2) mg/dL Calcium (8.4-10.2) mg/dL Total Bilirubin (0.2-1.3) mg/dL AST (17-59) U/L ALT (0-50) U/L Alkaline Phosphatase (38-126) U/L Serum Total Protein (6.3-8.2) g/dL Albumin (3.5-5.0) g/dL - Progress Progress: improved Progress Note: 12/22/19 14:59 Unsure of etiology of hand swelling. Possibly from IV drug use. Pt and father denies. Will give Rocephin and per Dr. Nolasco, start Vanc. Will admit for further IV abx and monitoring. Discussed with : Alex Will see patient in: hospital (observation) Counseled pt/family regarding: lab results, diagnosis, rad results - Departure Departure Disposition: Observation Clinical Impression: Cellulitis of hand, left Condition: Stable Critical Care Time: No Referrals: EDA NOLASCO MD [Primary Care Provider] -
[2019-12-22] MEDS ORDERED: Sodium Chloride 0.9% 1000 ML 1,000 ML IV STA (14:06)
[2019-12-22] MEDS ORDERED: Sodium Chloride 0.9% 1000 ML 1,000 ML ONE (14:16)
[2019-12-22] MEDS ORDERED: TORAdol 30 mg Injection ONE (14:18)
[2019-12-22] MEDS ORDERED: TORAdol 30 mg Injection IV ONE (14:18)
[2019-12-22 14:23] LABS: Absolute Neutrophil Ct (ANC) 4.59 (1.4-6.9); BASOPHIL % 0.4 % (0.0-0.4); Basophil (Absolute #) 0.03 (0-0.4); Eosinophil (Absolute #) 0.34 (0-0.5); Hematocrit 40.4 % (42-50); Hemoglobin 13.4 gm/dl (12.5-18.0); Lymphocyte (Absolute #) 1.26 (1.0-4.6); Lymphocytes % 18.6 % (24.0-44.0); Mean Cell Volume 88.2 fl (78-100); Mean Corpuscular Hemoglobin 29.3 pg (26-32); Mean Corpuscular Hgb Concent. 33.2 g/dl (32-36); Monocyte (Absolute #) 0.57 (0.0-1.3); Monocytes % 8.4 % (0.0-12.0); Neutrophil % 67.6 % (36.0-66.0); Platelet Count 212 K/mm3 (150-450); Red Blood Count 4.58 M/mm3 (4.1-5.6); Red Cell Distribution Width 13.3 % (11.5-14.0); White Blood Count 6.8 K/mm3 (4.0-10.5)
--- NOTE | 2019-12-22 14:24 | XRAY ---
Indication: Pain and swelling. No known injury. Comparison: None 3 views of the left hand demonstrates diffuse soft tissue swelling. No bony or articular abnormalities.
[2019-12-22 14:26] LABS: ALBUMIN 3.8 g/dL (3.5-5.0); ALKALINE PHOSPHATASE 99 U/L (38-126); ANION GAP 14.8 MEQ/L (5-15); BLOOD UREA NITROGEN 5 mg/dL (9-20); CHLORIDE 99 mmol/L (98-107); Calcium 9.3 mg/dL (8.4-10.2); Carbon Dioxide 30 mmol/L (22-30); Creatinine 1 0.62 mg/dL (0.66-1.25); Glucose 137 mg/dL (74-106); Potassium 3.3 mmol/L (3.5-5.1); SGOT/AST 29 U/L (17-59); SGPT/ALT 23 U/L (0-50); SODIUM 140 mmol/L (137-145); Total Protein 7.3 g/dL (6.3-8.2)
[2019-12-22] MEDS ORDERED: Vancomycin 1GM/ Ns 250ML*** 1 GM/250 ML IVPB IV ONE (14:56)
[2019-12-22] MEDS ORDERED: Vancomycin 1GM/ Ns 250ML*** 250 ML IV ONE (15:09)
[2019-12-22] MEDS ORDERED: Zofran 4 MG/2 ML VIAL IV PRN (15:36)
[2019-12-22] MEDS ORDERED: PHARMACY DOSING REQUIRED: VANCOMYCIN IV ONE (15:36)
[2019-12-22] MEDS ORDERED: TYLENOL 325 MG PO PRN (15:36)
[2019-12-22 17:08] LABS: Amphetamine,Urine NEGATIVE (NEGATIVE); Barbiturate,Urine NEGATIVE (NEGATIVE); Benzodiazepine,Urine NEGATIVE (NEGATIVE); Cocaine,Urine NEGATIVE (NEGATIVE); Methadone,Urine NEGATIVE (NEGATIVE); Opiate,Urine NEGATIVE (NEGATIVE); PCP,Urine NEGATIVE (NEGATIVE); THC,Urine NEGATIVE (NEGATIVE)
[2019-12-22] MEDS: Sodium Chloride 0.9% 1000 ML 1,000 ML IV SCH (17:51)
[2019-12-22] MEDS: VANCOMYCIN 1 GRAM/200 ML BAG 1 GM/200 ML PIGGYBACK IV SCH (21:42)
[2019-12-22] MEDS: TORAdol 30 mg Injection IV PRN (21:46)
[2019-12-23 04:38] LABS: Absolute Neutrophil Ct (ANC) 3.47 (1.4-6.9); BASOPHIL % 0.8 % (0.0-0.4); Basophil (Absolute #) 0.05 (0-0.4); Eosinophil % 7.1 % (0.00-5.0); Eosinophil (Absolute #) 0.45 (0-0.5); Hemoglobin 13.1 gm/dl (12.5-18.0); Lymphocyte (Absolute #) 1.81 (1.0-4.6); Lymphocytes % 28.7 % (24.0-44.0); Mean Cell Volume 89.2 fl (78-100); Mean Corpuscular Hgb Concent. 33.6 g/dl (32-36); Mean Platelet Volume 9.7 fl (7.5-11.0); Monocyte (Absolute #) 0.53 (0.0-1.3); Monocytes % 8.4 % (0.0-12.0); Platelet Count 221 K/mm3 (150-450); Red Blood Count 4.37 M/mm3 (4.1-5.6); Red Cell Distribution Width 13.4 % (11.5-14.0); White Blood Count 6.3 K/mm3 (4.0-10.5)
[2019-12-23 04:57] LABS: ANION GAP 9.6 MEQ/L (5-15); BLOOD UREA NITROGEN 6 mg/dL (9-20); CHLORIDE 109 mmol/L (98-107); Calcium 8.8 mg/dL (8.4-10.2); Carbon Dioxide 27 mmol/L (22-30); Creatinine 1 0.63 mg/dL (0.66-1.25); Glucose 103 mg/dL (74-106); Potassium 3.6 mmol/L (3.5-5.1); SODIUM 142 mmol/L (137-145)
[2019-12-23] MEDS: Sodium Chloride 0.9% 1000 ML 1,000 ML IV SCH ×2 (05:34→20:59)
[2019-12-23] MEDS: VANCOMYCIN 1 GRAM/200 ML BAG 1 GM/200 ML PIGGYBACK IV SCH ×3 (05:34→21:01)
[2019-12-23] MEDS: TORAdol 30 mg Injection IV PRN (10:11)
[2019-12-23] MEDS: ROCEPHIN 1 Gm-D5w 50 ml Bag** 1 G/50 ML IVPB IV SCH (10:12)
--- NOTE | 2019-12-23 13:16 | PCM.HP ---
History of Present Illness - Chief Complaint Chief Complaint: swelling of left hand for 2-3 days History of Present Illness: is a 24 year old male came to ER with c/o swelling of left hand an ulcer . Denies fever. - Review of Systems Constitutional: No Fever, No Chills Eyes: No Symptoms Ears, Nose, & Throat: No Symptoms Respiratory: No Cough, No Short Of Breath Cardiac: No Chest Pain, No Edema, No Syncope Abdominal/Gastrointestinal: No Abdominal Pain, No Nausea, No Vomiting, No Diarrhea Genitourinary Symptoms: No Dysuria Musculoskeletal: No Back Pain, No Neck Pain Skin: Cellulitis, Induration, No Rash Neurological: No Dizziness, No Focal Weakness, No Sensory Changes Psychological: No Symptoms Endocrine: No Symptoms Hematologic/Lymphatic: No Symptoms Immunological/Allergic: No Symptoms Medications & Allergies Home Medications: Home Medication List PANTOPRAZOLE 40 mg Tablet [Protonix 40MG Tablet] 40 mg PO 1600 09/28/19 [ History Confirmed 12/22/19] Sertraline HCl [Zoloft] 100 mg PO 1600 09/28/19 [History Confirmed 12/22/19] Allergies/Adverse Reactions: Allergies Allergy/AdvReac Type Severity Reaction Status Date / Time Penicillins Allergy Verified 12/22/19 14:01 - Past Medical History Past Medical History: Yes Neurological History: Migraines ENT History: No Pertinent History Cardiac History: No Pertinent History Respiratory History: No Pertinent History Endocrine Medical History: No Pertinent History Musculoskelatal History: No Pertinent History, Other GI Medical History: GERD History: No Pertinent History Pyscho-Social History: Depression Male Reproductive Disorders: No Pertinent History Comment: heart murmur; cellulitis bilat hands - Past Surgical History Past Surgical History: Yes Neuro Surgical History: No Pertinent History Cardiac History: No Pertinent History Respiratory Surgery: No Pertinent History GI Surgical History: No Pertinent History Genitourinary Surgical Hx: No Pertinent History Musculskeletal Surgical Hx: Orthopedic Surgery Male Surgical History: No Pertinent History Other Surgical History: finger x2 - Social History Smoking Status: Current every day smoker How long have you smoked: "8 years" Exposure to second hand smoke: Yes Alcohol: Occasionally Drug Use: marijuana - Physical Exam Vital Signs: Vital Signs - 24 hr Temp Pulse Resp BP Pulse Ox 12/23/19 11:40 97.8 F 79 16 117/60 98 12/23/19 06:45 96.3 F 71 16 114/56 97 12/23/19 04:00 97.9 F 69 20 119/73 98 12/22/19 23:54 98.1 F 67 21 123/67 98 12/22/19 19:34 98.8 F 75 15 123/75 96 12/22/19 18:00 98.7 F 86 20 130/62 98 12/22/19 16:12 98.7 F 86 20 130/62 98 12/22/19 13:45 97.4 F 91 H 124/69 100 General Appearance: no apparent distress, alert Neurologic Exam: alert, oriented x 3, cooperative, normal mood/affect, nml cerebellar function, nml station & gait, sensation nml, No motor deficits Eye Exam: PERRL/EOMI, eyes nml inspection Ears, Nose, Throat Exam: normal ENT inspection, TMs normal, pharynx normal, moist mucous membranes Neck Exam: normal inspection, non-tender, supple, full range of motion Respiratory Exam: normal breath sounds, lungs clear, No respiratory distress Cardiovascular Exam: regular rate/rhythm, normal heart sounds, normal peripheral pulses Gastrointestinal/Abdomen Exam: soft, normal bowel sounds, No tenderness, No mass Back Exam: normal inspection, normal range of motion, No CVA tenderness, No vertebral tenderness Extremity Exam: normal inspection, normal range of motion, pelvis stable, inflammation, swelling Skin Exam: normal color, warm, dry, No rash Lymphatic Exam: No adenopathy Results - Labs Lab/Micro Results: Lab Results-Last 24 Hours 12/22/19 12/22/19 12/22/19 Range/Units 13:50 13:50 13:50 WBC 6.8 (4.0-10.5) K/mm3 RBC 4.58 (4.1-5.6) M/mm3 Hgb 13.4 (12.5-18.0) gm/dl Hct 40.4 L (42-50) % MCV 88.2 (78-100) fl MCH 29.3 (26-32) pg MCHC 33.2 (32-36) g/dl RDW 13.3 (11.5-14.0) % Plt Count 212 (150-450) K/mm3 MPV 10.0 (7.5-11.0) fl Gran % 67.6 H (36.0-66.0) % Eos # (Auto) 0.34 (0-0.5) Absolute Lymphs (auto) 1.26 (1.0-4.6) Absolute Monos (auto) 0.57 (0.0-1.3) Lymphocytes % 18.6 L (24.0-44.0) % Monocytes % 8.4 (0.0-12.0) % Eosinophils % 5.0 (0.00-5.0) % Basophils % 0.4 (0.0-0.4) % Absolute Granulocytes 4.59 (1.4-6.9) Basophils # 0.03 (0-0.4) Sodium 140 (137-145) mmol/L Potassium 3.3 L (3.5-5.1) mmol/L Chloride 99 (98-107) mmol/L Carbon Dioxide 30 (22-30) mmol/L Anion Gap 14.8 (5-15) MEQ/L BUN 5 L (9-20) mg/dL Creatinine 0.62 L (0.66-1.25) mg/dL Estimated GFR > 60.0 ML/MIN Glucose 137 H (74-106) mg/dL Lactic Acid (0.4-2.0) Uric Acid (3.5-7.2) mg/dL Calcium 9.3 (8.4-10.2) mg/dL Total Bilirubin 0.40 (0.2-1.3) mg/dL AST 29 (17-59) U/L ALT 23 (0-50) U/L Alkaline Phosphatase 99 (38-126) U/L C-Reactive Prot, Quant 105.40 H (0.00-10.00) mg/L Serum Total Protein 7.3 (6.3-8.2) g/dL Albumin 3.8 (3.5-5.0) g/dL Urine Opiates Level (NEGATIVE) Ur Methadone (NEGATIVE) Urine Barbiturates (NEGATIVE) Ur Phencyclidine (PCP) (NEGATIVE) Urine Amphetamine (NEGATIVE) U Benzodiazepine Level (NEGATIVE) Urine Cocaine (NEGATIVE) Urine Marijuana (THC) (NEGATIVE) 12/22/19 12/22/19 12/22/19 Range/Units 13:50 13:55 15:59 WBC (4.0-10.5) K/mm3 RBC (4.1-5.6) M/mm3 Hgb (12.5-18.0) gm/dl Hct (42-50) % MCV (78-100) fl MCH (26-32) pg MCHC (32-36) g/dl RDW (11.5-14.0) % Plt Count (150-450) K/mm3 MPV (7.5-11.0) fl Gran % (36.0-66.0) % Eos # (Auto) (0-0.5) Absolute Lymphs (auto) (1.0-4.6) Absolute Monos (auto) (0.0-1.3) Lymphocytes % (24.0-44.0) % Monocytes % (0.0-12.0) % Eosinophils % (0.00-5.0) % Basophils % (0.0-0.4) % Absolute Granulocytes (1.4-6.9) Basophils # (0-0.4) Sodium (137-145) mmol/L Potassium (3.5-5.1) mmol/L Chloride (98-107) mmol/L Carbon Dioxide (22-30) mmol/L Anion Gap (5-15) MEQ/L BUN (9-20) mg/dL Creatinine (0.66-1.25) mg/dL Estimated GFR ML/MIN Glucose (74-106) mg/dL Lactic Acid 3.2 H 1.9 (0.4-2.0) Uric Acid 2.1 L (3.5-7.2) mg/dL Calcium (8.4-10.2) mg/dL Total Bilirubin (0.2-1.3) mg/dL AST (17-59) U/L ALT (0-50) U/L Alkaline Phosphatase (38-126) U/L C-Reactive Prot, Quant (0.00-10.00) mg/L Serum Total Protein (6.3-8.2) g/dL Albumin (3.5-5.0) g/dL Urine Opiates Level (NEGATIVE) Ur Methadone (NEGATIVE) Urine Barbiturates (NEGATIVE) Ur Phencyclidine (PCP) (NEGATIVE) Urine Amphetamine (NEGATIVE) U Benzodiazepine Level (NEGATIVE) Urine Cocaine (NEGATIVE) Urine Marijuana (THC) (NEGATIVE) 02/04/20 02/05/20 02/05/20 Range/Units 16:41 04:30 04:41 WBC 6.3 (4.0-10.5) K/mm3 RBC 4.37 (4.1-5.6) M/mm3 Hgb 13.1 (12.5-18.0) gm/dl Hct 39.0 L (42-50) % MCV 89.2 (78-100) fl MCH 30.0 (26-32) pg MCHC 33.6 (32-36) g/dl RDW 13.4 (11.5-14.0) % Plt Count 221 (150-450) K/mm3 MPV 9.7 (7.5-11.0) fl Gran % 55.0 (36.0-66.0) % Eos # (Auto) 0.45 (0-0.5) Absolute Lymphs (auto) 1.81 (1.0-4.6) Absolute Monos (auto) 0.53 (0.0-1.3) Lymphocytes % 28.7 (24.0-44.0) % Monocytes % 8.4 (0.0-12.0) % Eosinophils % 7.1 H (0.00-5.0) % Basophils % 0.8 (0.0-0.4) % Absolute Granulocytes 3.47 (1.4-6.9) Basophils # 0.05 (0-0.4) Sodium (137-145) mmol/L Potassium (3.5-5.1) mmol/L Chloride (98-107) mmol/L Carbon Dioxide (22-30) mmol/L Anion Gap (5-15) MEQ/L BUN (9-20) mg/dL Creatinine (0.66-1.25) mg/dL Estimated GFR ML/MIN Glucose (74-106) mg/dL Lactic Acid 1.0 (0.4-2.0) Uric Acid (3.5-7.2) mg/dL Calcium (8.4-10.2) mg/dL Total Bilirubin (0.2-1.3) mg/dL AST (17-59) U/L ALT (0-50) U/L Alkaline Phosphatase (38-126) U/L C-Reactive Prot, Quant (0.00-10.00) mg/L Serum Total Protein (6.3-8.2) g/dL Albumin (3.5-5.0) g/dL Urine Opiates Level NEGATIVE (NEGATIVE) Ur Methadone NEGATIVE (NEGATIVE) Urine Barbiturates NEGATIVE (NEGATIVE) Ur Phencyclidine (PCP) NEGATIVE (NEGATIVE) Urine Amphetamine NEGATIVE (NEGATIVE) U Benzodiazepine Level NEGATIVE (NEGATIVE) Urine Cocaine NEGATIVE (NEGATIVE) Urine Marijuana (THC) NEGATIVE (NEGATIVE) 12/23/19 Range/Units 04:58 WBC (4.0-10.5) K/mm3 RBC (4.1-5.6) M/mm3 Hgb (12.5-18.0) gm/dl Hct (42-50) % MCV (78-100) fl MCH (26-32) pg MCHC (32-36) g/dl RDW (11.5-14.0) % Plt Count (150-450) K/mm3 MPV (7.5-11.0) fl Gran % (36.0-66.0) % Eos # (Auto) (0-0.5) Absolute Lymphs (auto) (1.0-4.6) Absolute Monos (auto) (0.0-1.3) Lymphocytes % (24.0-44.0) % Monocytes % (0.0-12.0) % Eosinophils % (0.00-5.0) % Basophils % (0.0-0.4) % Absolute Granulocytes (1.4-6.9) Basophils # (0-0.4) Sodium 142 (137-145) mmol/L Potassium 3.6 (3.5-5.1) mmol/L Chloride 109 H (98-107) mmol/L Carbon Dioxide 27 (22-30) mmol/L Anion Gap 9.6 (5-15) MEQ/L BUN 6 L (9-20) mg/dL Creatinine 0.63 L (0.66-1.25) mg/dL Estimated GFR > 60.0 ML/MIN Glucose 103 (74-106) mg/dL Lactic Acid (0.4-2.0) Uric Acid (3.5-7.2) mg/dL Calcium 8.8 (8.4-10.2) mg/dL Total Bilirubin (0.2-1.3) mg/dL AST (17-59) U/L ALT (0-50) U/L Alkaline Phosphatase (38-126) U/L C-Reactive Prot, Quant (0.00-10.00) mg/L Serum Total Protein (6.3-8.2) g/dL Albumin (3.5-5.0) g/dL Urine Opiates Level (NEGATIVE) Ur Methadone (NEGATIVE) Urine Barbiturates (NEGATIVE) Ur Phencyclidine (PCP) (NEGATIVE) Urine Amphetamine (NEGATIVE) U Benzodiazepine Level (NEGATIVE) Urine Cocaine (NEGATIVE) Urine Marijuana (THC) (NEGATIVE) - Radiology Impressions Radiology Exams & Impressions: Radiology Procedures Category Date Time Status HAND (MINIMUM 3 VIEWS) Stat Exams 12/22/19 14:11 Completed Assessment/Plan (1) Cellulitis of hand, left Current Visit: Yes Status: Acute Assessment & Plan: Chief Complaint Diagnosis Cellulitis of left hand Allergies Allergy/AdvReac Type Severity Reaction Status Date / Time Penicillins Allergy Verified 12/22/19 14:01 Vital Signs (Last 24 hours) Temp Pulse Resp BP Pulse Ox 12/23/19 11:40 97.8 F 79 16 117/60 98 12/23/19 06:45 96.3 F 71 16 114/56 97 12/23/19 04:00 97.9 F 69 20 119/73 98 12/22/19 23:54 98.1 F 67 21 123/67 98 12/22/19 19:34 98.8 F 75 15 123/75 96 12/22/19 18:00 98.7 F 86 20 130/62 98 12/22/19 16:12 98.7 F 86 20 130/62 98 12/22/19 13:45 97.4 F 91 H 124/69 100 Current Medications Generic Name Dose Route Start Last Admin Trade Name Freq PRN Reason Stop Dose Admin Acetaminophen 650 mg 12/22/19 15:36 Tylenol 325 Mg PO 01/21/20 15:35 Q4H PRN PRN PAIN AND/OR FEVER Device 1 12/24/19 05:30 Trough Drug Levels IJ 12/24/19 05:31 1XONLY ONE Ceftriaxone Sodium/Dextrose 1 g in 50 mls @ 100 mls/hr 12/23/19 10:00 10:12 Rocephin 1 Gm-D5w 50 Ml Bag IV 01/22/20 09:59 100 mls/hr Q24H10 DOUGLAS Administration Sodium Chloride 1,000 mls @ 100 mls/hr 12/22/19 15:36 12/23/19 05:34 Sodium Chloride 0.9% 1000 Ml IV 01/21/20 15:35 100 mls/hr .Q10H DOUGLAS Administration Vancomycin HCl 1 gm in 200 mls @ 133.333 mls/hr 12/22/19 22:00 12/23/19 05:34 Vancomycin 1 Gram/200 Ml Bag IV 01/21/20 21:59 133.333 mls/hr Q8HT DOUGLAS Administration Ketorolac Tromethamine 30 mg 12/22/19 15:36 12/23/19 10:11 Toradol 30 Mg Injection IV 12/27/19 15:35 30 mg Q6H PRN PRN Administration PAIN Ondansetron HCl 4 mg 12/22/19 15:36 Zofran 4 Mg/2 Ml Vial IV 01/21/20 15:35 Q6H PRN PRN NAUSEA/VOMITING Pantoprazole Sodium 40 mg 12/23/19 16:00 Protonix 40mg Tablet PO 01/22/20 15:59 1600 DOUGLAS Sertraline HCl 100 mg 12/23/19 16:00 Zoloft 50 Mg Tablet PO 01/22/20 15:59 1600 DOUGLAS Discontinued Medications Generic Name Dose Route Start Last Admin Trade Name Freq PRN Reason Stop Dose Admin Ceftriaxone Sodium/Dextrose 1 g in 50 mls @ 100 mls/hr 12/22/19 13:49 14:22 Rocephin 1 Gm-D5w 50 Ml Bag IV 12/22/19 14:18 Infused STAT ONE Infusion Ceftriaxone Sodium/Dextrose Confirm 12/22/19 14:02 Rocephin 1 Gm-D5w 50 Ml Bag Administered 12/22/19 14:03 Dose 1 g in 50 mls @ ud IV .STK-MED ONE Sodium Chloride 1,000 mls @ 999 mls/hr 12/22/19 14:06 12/22/19 15:20 Sodium Chloride 0.9% 1000 Ml IV 12/22/19 15:06 Infused .Q1H1M STA Infusion Sodium Chloride Confirm 12/22/19 14:16 Sodium Chloride 0.9% 1000 Ml Administered 12/22/19 14:17 Dose 1,000 mls @ ud .ROUTE .STK-MED ONE Vancomycin HCl 1 gm in 250 mls @ 167 mls/hr 12/22/19 14:56 12/22/19 15:10 Vancomycin 1gm/ Ns 250ml IV 12/22/19 16:25 167 mls/hr STAT ONE Administration Vancomycin HCl Confirm 12/22/19 15:09 Vancomycin 1gm/ Ns 250ml Administered 12/22/19 15:10 Dose 250 mls @ ud IV .STK-MED ONE Ketorolac Tromethamine 30 mg 12/22/19 14:18 12/22/19 14:19 Toradol 30 Mg Injection IV 12/22/19 14:19 30 mg STAT ONE Administration Ketorolac Tromethamine Confirm 12/22/19 14:18 Toradol 30 Mg Injection Administered 12/22/19 14:19 Dose 30 mg .ROUTE .STK-MED ONE Non-Formulary Medication 1 each 12/22/19 15:36 Pharmacy Dosing Required: Vancomycin IV 12/22/19 15:37 STAT ONE Intake & Output (Last 24 hours) 12/21/19 12/22/19 12/23/19 12/24/19 11:59 11:59 11:59 11:59 Intake Total 2233 Balance 2233 Weight 72.6 kg Microbiology Results (Last 24 hours) 12/22/19 14:00 Blood Blood Culture Gram Stain - Pending 12/22/19 14:00 Blood Blood Culture - Pending 12/22/19 13:50 Blood Blood Culture Gram Stain - Pending 12/22/19 13:50 Blood Blood Culture - Pending Laboratory Results (Last 24 hours) 12/23/19 12/23/19 12/23/19 04:58 04:41 04:30 WBC 6.3 RBC 4.37 Hgb 13.1 Hct 39.0 L MCV 89.2 MCH 30.0 MCHC 33.6 RDW 13.4 Plt Count 221 MPV 9.7 Gran % 55.0 Eos # (Auto) 0.45 Absolute Lymphs (auto) 1.81 Absolute Monos (auto) 0.53 Lymphocytes % 28.7 Monocytes % 8.4 Eosinophils % 7.1 H Basophils % 0.8 Absolute Granulocytes 3.47 Basophils # 0.05 Sodium 142 Potassium 3.6 Chloride 109 H Carbon Dioxide 27 Anion Gap 9.6 BUN 6 L Creatinine 0.63 L Estimated GFR > 60.0 Glucose 103 Lactic Acid 1.0 Uric Acid Calcium 8.8 Total Bilirubin AST ALT Alkaline Phosphatase C-Reactive Prot, Quant Serum Total Protein Albumin Urine Opiates Level Ur Methadone Urine Barbiturates Ur Phencyclidine (PCP) Urine Amphetamine U Benzodiazepine Level Urine Cocaine Urine Marijuana (THC) 12/22/19 12/22/19 12/22/19 16:41 15:59 13:55 WBC RBC Hgb Hct MCV MCH MCHC RDW Plt Count MPV Gran % Eos # (Auto) Absolute Lymphs (auto) Absolute Monos (auto) Lymphocytes % Monocytes % Eosinophils % Basophils % Absolute Granulocytes Basophils # Sodium Potassium Chloride Carbon Dioxide Anion Gap BUN Creatinine Estimated GFR Glucose Lactic Acid 1.9 3.2 H Uric Acid Calcium Total Bilirubin AST ALT Alkaline Phosphatase C-Reactive Prot, Quant Serum Total Protein Albumin Urine Opiates Level NEGATIVE Ur Methadone NEGATIVE Urine Barbiturates NEGATIVE Ur Phencyclidine (PCP) NEGATIVE Urine Amphetamine NEGATIVE U Benzodiazepine Level NEGATIVE Urine Cocaine NEGATIVE Urine Marijuana (THC) NEGATIVE 12/22/19 12/22/19 12/22/19 13:50 13:50 13:50 WBC RBC Hgb Hct MCV MCH MCHC RDW Plt Count MPV Gran % Eos # (Auto) Absolute Lymphs (auto) Absolute Monos (auto) Lymphocytes % Monocytes % Eosinophils % Basophils % Absolute Granulocytes Basophils # Sodium 140 Potassium 3.3 L Chloride 99 Carbon Dioxide 30 Anion Gap 14.8 BUN 5 L Creatinine 0.62 L Estimated GFR > 60.0 Glucose 137 H Lactic Acid Uric Acid 2.1 L Calcium 9.3 Total Bilirubin 0.40 AST 29 ALT 23 Alkaline Phosphatase 99 C-Reactive Prot, Quant 105.40 H Serum Total Protein 7.3 Albumin 3.8 Urine Opiates Level Ur Methadone Urine Barbiturates Ur Phencyclidine (PCP) Urine Amphetamine U Benzodiazepine Level Urine Cocaine Urine Marijuana (THC) 12/22/19 13:50 WBC 6.8 RBC 4.58 Hgb 13.4 Hct 40.4 L MCV 88.2 MCH 29.3 MCHC 33.2 RDW 13.3 Plt Count 212 MPV 10.0 Gran % 67.6 H Eos # (Auto) 0.34 Absolute Lymphs (auto) 1.26 Absolute Monos (auto) 0.57 Lymphocytes % 18.6 L Monocytes % 8.4 Eosinophils % 5.0 Basophils % 0.4 Absolute Granulocytes 4.59 Basophils # 0.03 Sodium Potassium Chloride Carbon Dioxide Anion Gap BUN Creatinine Estimated GFR Glucose Lactic Acid Uric Acid Calcium Total Bilirubin AST ALT Alkaline Phosphatase C-Reactive Prot, Quant Serum Total Protein Albumin Urine Opiates Level Ur Methadone Urine Barbiturates Ur Phencyclidine (PCP) Urine Amphetamine U Benzodiazepine Level Urine Cocaine Urine Marijuana (THC) Orders (Last 24 hours) Category Date Time Status Up Ad Pilar ROUTINE Activity 12/22/19 15:36 Active Code Status Order ROUTINE Care 12/22/19 15:36 Active IV Care Q6H Care 12/22/19 15:36 Active IV Insertion STAT Care 12/22/19 13:[address] in Observation ROUTINE Care 12/22/19 15:36 Active Vital Signs Q6H Care 12/22/19 15:36 Active Storeroom Keeper/Discharge Plan Cons 12/22/19 16:10 Active Regular Diet Diet 12/22/19 Dinner Active HAND (MINIMUM 3 VIEWS) Stat Exams 12/22/19 14:11 Completed BLOOD CULTURE Stat Lab 12/22/19 14:00 Received BMP AM.LAB Lab 12/23/19 04:58 Completed CBC W DIFF AM.LAB Lab 12/23/19 04:41 Completed CBC W DIFF Stat Lab 12/22/19 13:50 Completed CMP Stat Lab 12/22/19 13:50 Completed CRP, Quant [C-Reactive Protein, Quant] Stat Lab 12/22/19 13:50 Completed Lactic Acid AM.LAB Lab 12/23/19 04:30 Completed Lactic Acid Stat Lab 12/22/19 13:55 Completed Lactic Acid Stat Lab 12/22/19 15:59 Completed Uric Acid Stat Lab 12/22/19 13:50 Completed Urine Triage Profile Stat Lab 12/22/19 16:41 Completed Vancomycin, Trough Urgent Lab 12/24/19 05:30 Ordered Acetaminophen 325 mg [Tylenol 325 mg] Med 12/22/19 15:36 Active 650 mg PO Q4H PRN PRN Ceftriaxone 1 GM/50 ML PREMIX* [ROCEPHIN 1 Gm-D5w 50 ml Med 12/23/19 10:00 Active Bag] 1 g in 50 ml IV Q24H10 Ceftriaxone 1 GM/50 ML PREMIX* [ROCEPHIN 1 Gm-D5w 50 ml Med 12/22/19 13:49 Discontinued Bag] 1 g in 50 ml IV STAT Ceftriaxone 1 GM/50 ML PREMIX* [ROCEPHIN 1 Gm-D5w 50 ml Med 12/22/19 14:02 Discontinued Bag] 1 g in 50 ml IV UD KETOROLAC trometh 30 mg Inj [TORAdol 30 mg Injection Med 12/22/19 14:18 Discontinued ] 30 mg .ROUTE .STK-MED ONE KETOROLAC trometh 30 mg Inj [TORAdol 30 mg Injection Med 12/22/19 15:36 Active ] 30 mg IV Q6H PRN PRN KETOROLAC trometh 30 mg Inj [TORAdol 30 mg Injection Med 12/22/19 14:18 Discontinued ] 30 mg IV STAT ONE NaCl 0.9% 1000 ml [Sodium Chloride 0.9% 1000 ML] 1,000 Med 12/22/19 14:16 Discontinued ml .ROUTE UD NaCl 0.9% 1000 ml [Sodium Chloride 0.9% 1000 ML] 1,000 Med 12/22/19 15:36 Active ml IV 100 mls/hr NaCl 0.9% 1000 ml [Sodium Chloride 0.9% 1000 ML] 1,000 Med 12/22/19 14:06 Discontinued ml IV 999 mls/hr Ondansetron HCl 4 mg/2 ml [Zofran 4 MG/2 ML VIAL] Med 12/22/19 15:36 Active 4 mg IV Q6H PRN PRN PANTOPRAZOLE 40 mg Tablet [Protonix 40MG Tablet] Med 12/23/19 16:00 Active 40 mg PO 1600 Pharmacy Dose Request: Vancomy [Pharmacy Dosing Med 12/22/19 15:36 Discontinued Required: Vancomycin] 1 each IV STAT ONE Sertraline HCl 50 mg [Zoloft 50 mg Tablet] Med 12/23/19 16:00 Active 100 mg PO 1600 Therapuetic Drug Level Monitor [Trough Drug Levels] Med 12/24/19 05:30 Once 1 IJ 1XONLY ONE Vancomycin HCl 1 gm Premix [Vancomycin 1GM/ Ns 250ML Med 12/22/19 14:56 Discontinued ] 1 gm in 250 ml IV STAT Vancomycin HCl 1 gm Premix [Vancomycin 1GM/ Ns 250ML Med 12/22/19 15:09 Discontinued ] 250 ml IV UD Vancomycin/Water For Inj (Peg) [Vancomycin 1 Gram/200 Med 12/22/19 22:00 Active ml Bag] 1 gm in 200 ml IV Q8HT PT Eval & Treat ( Order) ROUTINE PT 12/23/19 09:15 Active Code(s): L03.114 - CELLULITIS OF LEFT UPPER LIMB
[2019-12-23] MEDS: Abilify 10 MG PO SCH (14:20)
[2019-12-23] MEDS: ZOLOFT 50 MG TABLET PO SCH (16:44)
[2019-12-23] MEDS: Protonix 40MG Tablet PO SCH (16:44)
[2019-12-24] MEDS ORDERED: TROUGH DRUG LEVELS IJ ONE (05:30)
[2019-12-24] MEDS: Sodium Chloride 0.9% 1000 ML 1,000 ML IV SCH (08:17)
[2019-12-24] MEDS: VANCOMYCIN 1 GRAM/200 ML BAG 1 GM/200 ML PIGGYBACK IV SCH ×3 (08:17→22:10)
[2019-12-24] MEDS: ROCEPHIN 1 Gm-D5w 50 ml Bag** 1 G/50 ML IVPB IV SCH (09:54)
[2019-12-24] MEDS: Abilify 10 MG PO SCH (09:54)
[2019-12-24] MEDS ORDERED: MORPHINE SULFATE 2 MG INJ IV PRN (12:12)
--- NOTE | 2019-12-24 12:16 | PCM.NOTE ---
Date and Time: 12/24/19 1215 Subjective Assessment: pain in left hand - Review of Systems Constitutional: No Fever, No Chills Eyes: No Symptoms Ears, Nose, & Throat: No Symptoms Respiratory: No Cough, No Short Of Breath Cardiac: No Chest Pain, No Edema, No Syncope Abdominal/Gastrointestinal: No Abdominal Pain, No Nausea, No Vomiting, No Diarrhea Genitourinary Symptoms: No Dysuria Musculoskeletal: No Back Pain, No Neck Pain Skin: Cellulitis, No Rash Neurological: No Dizziness, No Focal Weakness, No Sensory Changes Psychological: No Symptoms Endocrine: No Symptoms Hematologic/Lymphatic: No Symptoms Immunological/Allergic: No Symptoms Objective Exam General Appearance: no apparent distress, alert Neurologic Exam: alert, oriented x 3, cooperative, normal mood/affect, nml cerebellar function, sensation nml, No motor deficits Skin Exam: normal color, warm, dry Eye Exam: PERRL, EOMI, eyes nml inspection Ears, Nose, Throat Exam: normal ENT inspection, pharynx normal, moist mucous membranes Neck Exam: normal inspection, non-tender, supple, full range of motion Respiratory Exam: normal breath sounds, lungs clear, No respiratory distress Cardiovascular Exam: regular rate/rhythm, normal heart sounds Gastrointestinal/Abdomen Exam: soft, No tenderness, No mass Extremity Exam: normal inspection, normal range of motion, inflammation, swelling Back Exam: normal inspection, normal range of motion, No CVA tenderness, No vertebral tenderness Male Genitalia Exam: deferred Rectal Exam: deferred OBJECTIVE DATA Vital Signs: Vital Signs - 24 hr Temp Pulse Resp BP Pulse Ox 12/24/19 07:05 97.9 F 74 16 124/76 97 12/24/19 04:00 98.2 F 67 20 131/83 97 12/24/19 00:00 98.3 F 82 20 119/68 98 12/23/19 20:00 97.8 F 77 18 122/66 96 12/23/19 16:57 98.2 F 77 16 126/57 95 Pain Assessment - Last Documented Pain Intensity 7 Pain Scale Used 0-10 Pain Scale Intake and Output: Intake & Output 12/22/19 12/23/19 12/24/19 12/25/19 11:59 11:59 11:59 11:59 Intake Total 8763 3989 Balance 2233 3989 Weight 72.6 kg Lab Results: Lab Results-Last 24 Hours 12/24/19 Range/Units 05:44 Vancomycin Trough 11.82 (10-20) ug/mL Radiology Exams: Radiology Procedures Category Date Time Status HAND (MINIMUM 3 VIEWS) Stat Exams 12/22/19 14:11 Completed Multi-Disciplinary Progress Notes: Multi-Disciplinary Progress Notes 12/23/19 15:00 (created 12/23/19 15:14) Case Management Note by Daniela Dawkins PRIOR AUTH INITIATED FOR MRI OF LUE W/AND W/O CONTRAST. AWAIT RESPONSE FROM INSURANCE. Initialized on 12/23/19 15:14 - END OF NOTE 12/23/19 13:15 (created 12/23/19 14:52) Case Management Note by Daniela Dawkins DR. ROUNDED AND EVALUATED, DISCUSSED TREATMENT AND PLAN OF CARE WITH PT. PT VERBALIZED UNDERSTANDING. DR. NOLASCO EXAMINED LUE, HAND IS SEVERELY REDDENED AND SWOLLEN WITH PILLOW TOP APPEARANCE TO TOP OF HAND, SWELLING AND REDNESS IS EXTENDED UP LEFT ARM TO BICEP REGION. PT DENIES TRAUMA TO LIMB, AND ALSO DENIES HAVING ANY WOUNDS RECENTLY. PT IN AGREEMENT WITH PLAN OF CARE. WILL GET MRI OF LEFT UPPER EXTREMITY TO R/O OSTEOMYELITIS, THEIR IS SIGNIFICANT CONCERN WITH THE SEVERITY OF CELLULITIS. ALSO, CONTINUE IV ABX ROCEPHIN AND VANCOMYCIN ORDERED. DISCUSSED WITH PT TO KEEP LIMB ELEVATED ON PILLOWS. Initialized on 12/23/19 14:52 - END OF NOTE Assessment/Plan (1) Cellulitis of hand, left Current Visit: Yes Status: Acute Assessment & Plan: Chief Complaint Diagnosis swelling of left hand for 2-3 days Allergies Allergy/AdvReac Type Severity Reaction Status Date / Time Penicillins Allergy Verified 12/22/19 14:01 Vital Signs (Last 24 hours) Temp Pulse Resp BP Pulse Ox 12/24/19 07:05 97.9 F 74 16 124/76 97 12/24/19 04:00 98.2 F 67 20 131/83 97 12/24/19 00:00 98.3 F 82 20 119/68 98 12/23/19 20:00 97.8 F 77 18 122/66 96 12/23/19 16:57 98.2 F 77 16 126/57 95 Current Medications Generic Name Dose Route Start Last Admin Trade Name Freq PRN Reason Stop Dose Admin Acetaminophen 650 mg 02/04/20 15:36 Tylenol 325 Mg PO 01/21/20 15:35 Q4H PRN PRN PAIN AND/OR FEVER Aripiprazole 5 mg 12/23/19 14:00 12/24/19 09:54 Abilify 10 Mg PO 01/22/20 13:59 5 mg DAILY DOUGLAS Administration Ceftriaxone Sodium/Dextrose 1 g in 50 mls @ 100 mls/hr 12/23/19 10:00 09:54 Rocephin 1 Gm-D5w 50 Ml Bag IV 01/22/20 09:59 100 mls/hr Q24H10 DOUGLAS Administration Sodium Chloride 1,000 mls @ 100 mls/hr 12/22/19 15:36 12/24/19 08:17 Sodium Chloride 0.9% 1000 Ml IV 01/21/20 15:35 100 mls/hr .Q10H DOUGLAS Administration Vancomycin HCl 1 gm in 200 mls @ 133.333 mls/hr 12/22/19 22:00 12/24/19 08:17 Vancomycin 1 Gram/200 Ml Bag IV 01/21/20 21:59 133.333 mls/hr Q8HT DOUGLAS Administration Ketorolac Tromethamine 30 mg 12/22/19 15:36 12/23/19 10:11 Toradol 30 Mg Injection IV 12/27/19 15:35 30 mg Q6H PRN PRN Administration PAIN Morphine Sulfate 2 mg 12/24/19 12:12 Morphine Sulfate 2 Mg Inj IV 12/29/19 12:11 Q4H PRN PRN PAIN Ondansetron HCl 4 mg 12/22/19 15:36 Zofran 4 Mg/2 Ml Vial IV 01/21/20 15:35 Q6H PRN PRN NAUSEA/VOMITING Pantoprazole Sodium 40 mg 12/23/19 16:00 12/23/19 16:44 Protonix 40mg Tablet PO 01/22/20 15:59 40 mg 1600 DOUGLAS Administration Sertraline HCl 100 mg 12/23/19 16:00 12/23/19 16:44 Zoloft 50 Mg Tablet PO 01/22/20 15:59 100 mg 1600 DOUGLAS Administration Discontinued Medications Generic Name Dose Route Start Last Admin Trade Name Freq PRN Reason Stop Dose Admin Device 1 12/24/19 05:30 Trough Drug Levels IJ 12/24/19 05:31 1XONLY ONE Ceftriaxone Sodium/Dextrose 1 g in 50 mls @ 100 mls/hr 12/22/19 13:49 14:22 Rocephin 1 Gm-D5w 50 Ml Bag IV 12/22/19 14:18 Infused STAT ONE Infusion Ceftriaxone Sodium/Dextrose Confirm 12/22/19 14:02 Rocephin 1 Gm-D5w 50 Ml Bag Administered 12/22/19 14:03 Dose 1 g in 50 mls @ ud IV .STK-MED ONE Sodium Chloride 1,000 mls @ 999 mls/hr 12/22/19 14:06 12/22/19 15:20 Sodium Chloride 0.9% 1000 Ml IV 12/22/19 15:06 Infused .Q1H1M STA Infusion Sodium Chloride Confirm 12/22/19 14:16 Sodium Chloride 0.9% 1000 Ml Administered 12/22/19 14:17 Dose 1,000 mls @ ud .ROUTE .STK-MED ONE Vancomycin HCl 1 gm in 250 mls @ 167 mls/hr 12/22/19 14:56 12/22/19 15:10 Vancomycin 1gm/ Ns 250ml IV 12/22/19 16:25 167 mls/hr STAT ONE Administration Vancomycin HCl Confirm 12/22/19 15:09 Vancomycin 1gm/ Ns 250ml Administered 12/22/19 15:10 Dose 250 mls @ ud IV .STK-MED ONE Ketorolac Tromethamine 30 mg 12/22/19 14:18 12/22/19 14:19 Toradol 30 Mg Injection IV 12/22/19 14:19 30 mg STAT ONE Administration Ketorolac Tromethamine Confirm 12/22/19 14:18 Toradol 30 Mg Injection Administered 12/22/19 14:19 Dose 30 mg .ROUTE .STK-MED ONE Non-Formulary Medication 1 each 12/22/19 15:36 Pharmacy Dosing Required: Vancomycin IV 12/22/19 15:37 STAT ONE Intake & Output (Last 24 hours) 12/22/19 12/23/19 12/24/19 12/25/19 11:59 11:59 11:59 11:59 Intake Total 8013 3980 Balance 2233 3984 Weight 72.6 kg Microbiology Results (Last 24 hours) 12/22/19 14:00 Blood Blood Culture Gram Stain - Pending 12/22/19 14:00 Blood Blood Culture - Preliminary NO GROWTH TO DATE 12/22/19 13:50 Blood Blood Culture Gram Stain - Pending 12/22/19 13:50 Blood Blood Culture - Preliminary NO GROWTH TO DATE Laboratory Results (Last 24 hours) 12/24/19 05:44 Vancomycin Trough 11.82 Orders (Last 24 hours) Category Date Time Status Vancomycin, Trough Urgent Lab 12/24/19 05:44 Completed Aripiprazole 10 mg [Abilify 10 MG] Med 12/23/19 14:00 Active 5 mg PO DAILY Morphine Sulfate 2 mg Inj Med 12/24/19 12:12 Ordered 2 mg IV Q4H PRN PRN PANTOPRAZOLE 40 mg Tablet [Protonix 40MG Tablet] Med 12/23/19 16:00 Active 40 mg PO 1600 Sertraline HCl 50 mg [Zoloft 50 mg Tablet] Med 12/23/19 16:00 Active 100 mg PO 1600 Therapuetic Drug Level Monitor [Trough Drug Levels] Med 12/24/19 05:30 Discontinued 1 IJ 1XONLY ONE Patient Care Notes (Last 24 hours) 12/23/19 15:00 (created 12/23/19 15:14) Case Management Note by Daniela Dawkins PRIOR AUTH INITIATED FOR MRI OF LUE W/AND W/O CONTRAST. AWAIT RESPONSE FROM INSURANCE. Initialized on 12/23/19 15:14 - END OF NOTE 12/23/19 13:15 (created 12/23/19 14:52) Case Management Note by Daniela Dawkins DR. ROUNDED AND EVALUATED, DISCUSSED TREATMENT AND PLAN OF CARE WITH PT. PT VERBALIZED UNDERSTANDING. DR. NOLASCO EXAMINED LUE, HAND IS SEVERELY REDDENED AND SWOLLEN WITH PILLOW TOP APPEARANCE TO TOP OF HAND, SWELLING AND REDNESS IS EXTENDED UP LEFT ARM TO BICEP REGION. PT DENIES TRAUMA TO LIMB, AND ALSO DENIES HAVING ANY WOUNDS RECENTLY. PT IN AGREEMENT WITH PLAN OF CARE. WILL GET MRI OF LEFT UPPER EXTREMITY TO R/O OSTEOMYELITIS, THEIR IS SIGNIFICANT CONCERN WITH THE SEVERITY OF CELLULITIS. ALSO, CONTINUE IV ABX ROCEPHIN AND VANCOMYCIN ORDERED. DISCUSSED WITH PT TO KEEP LIMB ELEVATED ON PILLOWS. Initialized on 12/23/19 14:52 - END OF NOTE Code(s): L03.114 - CELLULITIS OF LEFT UPPER LIMB
--- NOTE | 2019-12-24 17:07 | XRAY ---
Indication: Cellulitis. Sagittal, coronal, and axial MRI of the left distal forearm/wrist/proximal hand was performed using pre-and post T1, T2, and STIR sequences. 15 cc Dotarem contrast used. Comparison: None Several images/sequences are degraded by motion artifact. There is diffuse subcutaneous soft tissue swelling/edema signal with enhancement, greatest focus centered around the wrist consistent with clinical diagnosis of cellulitis. No solid/cystic soft tissue mass or abnormal fluid collection. Flexor and extensor mechanism intact. Carpal rows appears anatomic. No acute fracture, dislocation, osseous destructive process, abnormal bone marrow signal, or abnormal bony enhancement. Impression: 1. Motion artifact. 2. Distal forearm/wrist/proximal hand cellulitis. No abnormal fluid collection, abscess, or evidence for osteomyelitis.
[2019-12-24] MEDS: ZOLOFT 50 MG TABLET PO SCH (18:00)
[2019-12-24] MEDS: Protonix 40MG Tablet PO SCH (18:00)
[2019-12-25] MEDS: Sodium Chloride 0.9% 1000 ML 1,000 ML IV SCH ×2 (01:42→14:00)
[2019-12-25] MEDS: VANCOMYCIN 1 GRAM/200 ML BAG 1 GM/200 ML PIGGYBACK IV SCH ×3 (06:22→21:26)
[2019-12-25] MEDS: Abilify 10 MG PO SCH (10:17)
[2019-12-25] MEDS: ROCEPHIN 1 Gm-D5w 50 ml Bag** 1 G/50 ML IVPB IV SCH (10:17)
[2019-12-25] MEDS: TORAdol 30 mg Injection IV PRN (11:01)
--- NOTE | 2019-12-25 13:00 | PCM.NOTE ---
Date and Time: 12/25/19 1259 Subjective Assessment: doing ok - Review of Systems Constitutional: No Fever, No Chills Eyes: No Symptoms Ears, Nose, & Throat: No Symptoms Respiratory: No Cough, No Short Of Breath Cardiac: No Chest Pain, No Edema, No Syncope Abdominal/Gastrointestinal: No Abdominal Pain, No Nausea, No Vomiting, No Diarrhea Genitourinary Symptoms: No Dysuria Musculoskeletal: No Back Pain, No Neck Pain Skin: Cellulitis (left hand), No Rash Neurological: No Dizziness, No Focal Weakness, No Sensory Changes Psychological: No Symptoms Endocrine: No Symptoms Hematologic/Lymphatic: No Symptoms Immunological/Allergic: No Symptoms OBJECTIVE DATA Vital Signs: Vital Signs - 24 hr Temp Pulse Resp BP Pulse Ox 12/25/19 12:00 97.5 F 88 16 141/83 98 12/25/19 08:00 97.7 F 70 14 137/83 98 12/25/19 04:51 97.7 F 66 18 130/80 99 12/25/19 00:00 98.4 F 77 18 117/68 95 12/24/19 20:00 97.8 F 72 16 129/81 97 12/24/19 13:00 97.4 F 85 16 137/85 95 Pain Assessment - Last Documented Pain Intensity 7 Pain Scale Used 0-10 Pain Scale Intake and Output: Intake & Output 12/23/19 12/24/19 12/25/19 12/26/19 11:59 11:59 11:59 11:59 Intake Total 2233 3989 3620 480 Balance 2233 3989 3620 480 Weight 72.6 kg Radiology Exams: Radiology Procedures Category Date Time Status MRI UPPER EXT NON-JOINT W & WO [MRI] Routine Exams 12/24/19 12:28 Completed Assessment/Plan (1) Cellulitis of hand, left Current Visit: Yes Status: Acute Assessment & Plan: Chief Complaint Diagnosis CELLULITIS LUE Allergies Allergy/AdvReac Type Severity Reaction Status Date / Time Penicillins Allergy Verified 12/22/19 14:01 Vital Signs (Last 24 hours) Temp Pulse Resp BP Pulse Ox 12/25/19 12:00 97.5 F 88 16 141/83 98 12/25/19 08:00 97.7 F 70 14 137/83 98 12/25/19 04:51 97.7 F 66 18 130/80 99 12/25/19 00:00 98.4 F 77 18 117/68 95 12/24/19 20:00 97.8 F 72 16 129/81 97 12/24/19 13:00 97.4 F 85 16 137/85 95 Current Medications Generic Name Dose Route Start Last Admin Trade Name Freq PRN Reason Stop Dose Admin Acetaminophen 650 mg 12/22/19 15:36 Tylenol 325 Mg PO 01/21/20 15:35 Q4H PRN PRN PAIN AND/OR FEVER Aripiprazole 5 mg 12/23/19 14:00 12/25/19 10:17 Abilify 10 Mg PO 01/22/20 13:59 5 mg DAILY DOUGLAS Administration Device 1 12/26/19 05:30 Trough Drug Levels IJ 12/26/19 05:31 1XONLY ONE Ceftriaxone Sodium/Dextrose 1 g in 50 mls @ 100 mls/hr 12/23/19 10:00 10:17 Rocephin 1 Gm-D5w 50 Ml Bag IV 01/22/20 09:59 100 mls/hr Q24H10 DOUGLAS Administration Sodium Chloride 1,000 mls @ 100 mls/hr 12/22/19 15:36 12/25/19 01:42 Sodium Chloride 0.9% 1000 Ml IV 01/21/20 15:35 100 mls/hr .Q10H DOUGLAS Administration Vancomycin HCl 1 gm in 200 mls @ 133.333 mls/hr 12/22/19 22:00 12/25/19 06:22 Vancomycin 1 Gram/200 Ml Bag IV 01/21/20 21:59 133.333 mls/hr Q8HT DOUGLAS Administration Ketorolac Tromethamine 30 mg 12/22/19 15:36 12/25/19 11:01 Toradol 30 Mg Injection IV 12/27/19 15:35 30 mg Q6H PRN PRN Administration PAIN Morphine Sulfate 2 mg 12/24/19 12:12 12/24/19 18:01 Morphine Sulfate 2 Mg Inj IV 12/29/19 12:11 2 mg Q4H PRN PRN Administration PAIN Ondansetron HCl 4 mg 12/22/19 15:36 Zofran 4 Mg/2 Ml Vial IV 01/21/20 15:35 Q6H PRN PRN NAUSEA/VOMITING Pantoprazole Sodium 40 mg 12/23/19 16:00 12/24/19 18:00 Protonix 40mg Tablet PO 01/22/20 15:59 40 mg 1600 DOUGLAS Administration Sertraline HCl 100 mg 12/23/19 16:00 12/24/19 18:00 Zoloft 50 Mg Tablet PO 01/22/20 15:59 100 mg 1600 DOUGLAS Administration Discontinued Medications Generic Name Dose Route Start Last Admin Trade Name Barb PRN Reason Stop Dose Admin Device 1 12/24/19 05:30 12/24/19 18:30 Trough Drug Levels IJ 12/24/19 05:31 1 1XONLY ONE Administration Ceftriaxone Sodium/Dextrose 1 g in 50 mls @ 100 mls/hr 12/22/19 13:49 14:22 Rocephin 1 Gm-D5w 50 Ml Bag IV 12/22/19 14:18 Infused STAT ONE Infusion Ceftriaxone Sodium/Dextrose Confirm 12/22/19 14:02 Rocephin 1 Gm-D5w 50 Ml Bag Administered 12/22/19 14:03 Dose 1 g in 50 mls @ ud IV .STK-MED ONE Sodium Chloride 1,000 mls @ 999 mls/hr 12/22/19 14:06 12/22/19 15:20 Sodium Chloride 0.9% 1000 Ml IV 12/22/19 15:06 Infused .Q1H1M STA Infusion Sodium Chloride Confirm 12/22/19 14:16 Sodium Chloride 0.9% 1000 Ml Administered 12/22/19 14:17 Dose 1,000 mls @ ud .ROUTE .STK-MED ONE Vancomycin HCl 1 gm in 250 mls @ 167 mls/hr 12/22/19 14:56 12/22/19 15:10 Vancomycin 1gm/ Ns 250ml IV 12/22/19 16:25 167 mls/hr STAT ONE Administration Vancomycin HCl Confirm 12/22/19 15:09 Vancomycin 1gm/ Ns 250ml Administered 12/22/19 15:10 Dose 250 mls @ ud IV .STK-MED ONE Ketorolac Tromethamine 30 mg 12/22/19 14:18 12/22/19 14:19 Toradol 30 Mg Injection IV 12/22/19 14:19 30 mg STAT ONE Administration Ketorolac Tromethamine Confirm 12/22/19 14:18 Toradol 30 Mg Injection Administered 12/22/19 14:19 Dose 30 mg .ROUTE .STK-MED ONE Non-Formulary Medication 1 each 12/22/19 15:36 Pharmacy Dosing Required: Vancomycin IV 12/22/19 15:37 STAT ONE Intake & Output (Last 24 hours) 12/23/19 12/24/19 12/25/19 12/26/19 11:59 11:59 11:59 11:59 Intake Total 2233 3989 3620 480 Balance 2233 3989 3620 480 Weight 72.6 kg Orders (Last 24 hours) Category Date Time Status Admission Status Change [Change to Full Admit] ROUTINE Care 12/24/19 12:15 Active Consult Tele-Health [Tele-Health Consult] ROUTINE Cons 12/25/19 09:34 Active MRI UPPER EXT NON-JOINT W & WO [MRI] Routine Exams 12/24/19 12:28 Completed Vancomycin, Trough Urgent Lab 12/26/19 05:30 Ordered Morphine Sulfate 2 mg Inj Med 12/24/19 12:12 Active 2 mg IV Q4H PRN PRN Therapuetic Drug Level Monitor [Trough Drug Levels] Med 12/26/19 05:30 Once 1 IJ 1XONLY ONE Patient Care Notes (Last 24 hours) 12/24/19 18:43 Nursing Note by Luly Ragnel Pt was found to be smoking in room. HS to room and took pts cigarettes. They are locked in the med drawer for time of DC. PT did have chewing tobacco in room and was told if he can be respectful with it and keep any mess contained we would not take that away. Housekeeping states pt has "spit on floor and in bathroom" pt denies this and this RN did not see the area dirty I did tell him if this occurs again I would have to lock up his chew also. Initialized on 12/24/19 18:43 - END OF NOTE 12/24/19 18:14 Nursing Note by Philly Mccarthy Pt c/o pain, given prn morphine Initialized on 12/24/19 18:14 - END OF NOTE Code(s): L03.114 - CELLULITIS OF LEFT UPPER LIMB
[2019-12-25] MEDS: Protonix 40MG Tablet PO SCH (17:23)
[2019-12-25] MEDS: ZOLOFT 50 MG TABLET PO SCH (17:23)
[2019-12-25 23:58] VITALS: O2SAT 97
[2019-12-26] MEDS: Sodium Chloride 0.9% 1000 ML 1,000 ML IV SCH (02:58)
[2019-12-26] MEDS ORDERED: TROUGH DRUG LEVELS IJ ONE (05:30)
[2019-12-26 07:23] VITALS: BP 119/57; PULSE 68
--- NOTE | 2019-12-26 07:57 | PCM.NOTE ---
Date and Time: 12/26/19 0757 Subjective Assessment: Patient is doing much better. Swelling on his left forearm and hand is decreased. Patient pain is improved. - Review of Systems Constitutional: No Fever, No Chills Eyes: No Symptoms Ears, Nose, & Throat: No Symptoms Respiratory: No Cough, No Short Of Breath Cardiac: No Chest Pain, No Edema, No Syncope Abdominal/Gastrointestinal: No Abdominal Pain, No Nausea, No Vomiting, No Diarrhea Genitourinary Symptoms: No Dysuria Musculoskeletal: No Back Pain, No Neck Pain Skin: Cellulitis, Induration, No Rash Neurological: No Dizziness, No Focal Weakness, No Sensory Changes Psychological: No Symptoms Endocrine: No Symptoms Hematologic/Lymphatic: No Symptoms Immunological/Allergic: No Symptoms Objective Exam General Appearance: no apparent distress, alert Neurologic Exam: alert, oriented x 3, cooperative, normal mood/affect, nml cerebellar function, sensation nml, No motor deficits Skin Exam: normal color, warm, dry Eye Exam: PERRL, EOMI, eyes nml inspection Ears, Nose, Throat Exam: normal ENT inspection, pharynx normal, moist mucous membranes Neck Exam: normal inspection, non-tender, supple, full range of motion Respiratory Exam: normal breath sounds, lungs clear, No respiratory distress Cardiovascular Exam: regular rate/rhythm, normal heart sounds Gastrointestinal/Abdomen Exam: soft, No tenderness, No mass Extremity Exam: normal inspection, normal range of motion, inflammation, swelling (left forearm, hand) Back Exam: normal inspection, normal range of motion, No CVA tenderness, No vertebral tenderness Male Genitalia Exam: deferred Rectal Exam: deferred OBJECTIVE DATA Vital Signs: Vital Signs - 24 hr Temp Pulse Resp BP Pulse Ox 12/26/19 07:22 98.3 F 68 18 119/57 97 12/26/19 04:26 98.1 F 73 18 141/77 97 12/25/19 23:56 98.2 F 71 17 125/76 97 12/25/19 18:00 97.6 F 78 14 129/71 98 12/25/19 12:00 97.5 F 88 16 141/83 98 12/25/19 08:00 97.7 F 70 14 137/83 98 Pain Assessment - Last Documented Pain Intensity 0 Pain Scale Used 0-10 Pain Scale Intake and Output: Intake & Output 12/23/19 12/24/19 12/25/19 12/26/19 11:59 11:59 11:59 11:59 Intake Total 2233 3989 3620 3976 Balance 2233 3989 3620 3976 Weight 72.6 kg 72.6 kg Lab Results: Lab Results-Last 24 Hours 12/26/19 Range/Units 06:25 Vancomycin Trough 11.89 (10-20) ug/mL Radiology Exams: Radiology Procedures Category Date Time Status MRI UPPER EXT NON-JOINT W & WO [MRI] Routine Exams 12/24/19 12:28 Completed Multi-Disciplinary Progress Notes: Multi-Disciplinary Progress Notes 12/25/19 16:43 Physical Therapy Note by Philly Gonsales PT. ASLEEP AND IN DARK ROOM UPON P.T. ARRIVAL. STARTLED W/ ATTEMPTS TO AWAKEN. NOTED CONT. 3+ EDEMA DORSAL HAND EVEN W/ TUBIGRIP. RECOMMEND TO CONT. W/ BARRIER CREAM AND USE OF TUBIGRIP. ADVISED PT. TO IMPROVE COMPLIANCE W/ ELEVATION TO DECREASE EDEMA. WILL CONT. TO MONITOR. PHILLY GONSALES PT Initialized on 12/25/19 16:43 - END OF NOTE 12/25/19 13:01 Case Management Note by Doris Thomas S/W FATHER- HE REPORTS PATIENT LIVES WITH HIM IN A SAFE HOUSE WITH ACCESS TO FOOD AND GROCERIES. HE STATED THEY CAN AFFORD SCRIPTS AND HE CAN PROVIDE TRANSPORTATION FOR PATIENT TO FOLLOW UP APPOINTMENTS NECESSARY. FATHER DENIED ANY NEEDS REGARDING DISCHARGE AT THIS TIME Initialized on 12/25/19 13:01 - END OF NOTE Assessment/Plan (1) Cellulitis of left upper extremity Current Visit: Yes Status: Acute Code(s): L03.114 - CELLULITIS OF LEFT UPPER LIMB (2) Cellulitis of hand, left Current Visit: Yes Status: Acute Assessment & Plan: Medication Report Aripiprazole (Abilify 10 Mg) 5 mg PO DAILY DOUGLAS Stop: 01/22/20 13:59 Last Admin: 12/25/19 10:17 Dose: 5 mg Ceftriaxone Sodium/Dextrose (Rocephin 1 Gm-D5w 50 Ml Bag) 1 g in 50 mls @ 100 mls/hr IV Q24H10 DOUGLAS Stop: 01/22/20 09:59 Last Admin: 12/25/19 10:17 Dose: 100 mls/hr Sodium Chloride (Sodium Chloride 0.9% 1000 Ml) 1,000 mls @ 100 mls/hr IV .Q10H DOUGLAS Stop: 01/21/20 15:35 Last Admin: 12/26/19 02:58 Dose: 100 mls/hr Infusion/Titration Document 12/26/19 02:58 VERENICE (Rec: 12/26/19 02:58 VERENICE [id number]) Dosing & Rate IV Rate 100 Increase/Decrease Started/Running Cumulative Dose Not Applicable IV Intake Cumulative Intake (Rx) 5,000 Container Volume 1,000 Volume Adjustment/Waste 0 Vancomycin HCl (Vancomycin 1 Gram/200 Ml Bag) 1 gm in 200 mls @ 133.333 mls/hr IV Q8HT DOUGLAS Stop: 01/21/20 21:59 Last Admin: 12/25/19 21:26 Dose: 133.333 mls/hr Ketorolac Tromethamine (Toradol 30 Mg Injection) 30 mg IV Q6H PRN PRN PRN Reason: PAIN Stop: 12/27/19 15:35 Last Admin: 12/25/19 11:01 Dose: 30 mg MAR PAIN Document 12/25/19 11:01 DS (Rec: 12/25/19 11:01 DS [id number]) Reassesment Pain Site Left Location Hand Pain Scale Used 0-10 Pain Scale Pain Intensity (0-10) 8 Re-Assess: Pain Reassessment Document 12/25/19 11:31 EVELIA (Rec: 12/25/19 14:00 EVELIA [id number]) Pain Description Pain Scale Used 0-10 Pain Scale Pain Intensity (0-10) 7 Morphine Sulfate (Morphine Sulfate 2 Mg Inj) 2 mg IV Q4H PRN PRN PRN Reason: PAIN Stop: 12/29/19 12:11 Last Admin: 12/24/19 18:01 Dose: 2 mg MAR PAIN Document 12/24/19 18:01 (Rec: 12/24/19 18:01 [id number]) Reassesment Pain Site Left Right Pain Scale Used 0-10 Pain Scale Pain Intensity (0-10) 8 Pantoprazole Sodium (Protonix 40mg Tablet) 40 mg PO 1600 DOUGLAS Stop: 01/22/20 15:59 Last Admin: 12/25/19 17:23 Dose: 40 mg Sertraline HCl (Zoloft 50 Mg Tablet) 100 mg PO 1600 DOUGLAS Stop: 01/22/20 15:59 Last Admin: 12/25/19 17:23 Dose: 100 mg Discontinued Medications Device (Trough Drug Levels) 1 IJ 1XONLY ONE Stop: 12/24/19 05:31 Last Admin: 12/24/19 18:30 Dose: 1 Ceftriaxone Sodium/Dextrose (Rocephin 1 Gm-D5w 50 Ml Bag) 1 g in 50 mls @ 100 mls/hr IV STAT ONE Stop: 12/22/19 14:18 Last Infusion: 12/22/19 14:22 Dose: 0 mls/hr, 0 mls/hr Infusion/Titration Document 12/22/19 14:22 SE (Rec: 12/22/19 14:22 SE [id number]) Dosing & Rate Titration Dose 0 IV Rate 0 Increase/Decrease Infused Cumulative Dose 0 IV Intake Infusion Intake 50 Cumulative Intake (Bag) 50 Cumulative Intake (Rx) 50 Container Volume 0 Volume Adjustment/Waste 0 Sodium Chloride (Sodium Chloride 0.9% 1000 Ml) 1,000 mls @ 999 mls/hr IV .Q1H1M STA Stop: 12/22/19 15:06 Last Infusion: 12/22/19 15:20 Dose: 0 mls/hr Infusion/Titration Document 12/22/19 15:20 TR (Rec: 12/22/19 15:20 TR [id number]) Dosing & Rate IV Rate 0 Increase/Decrease Infused Cumulative Dose Not Applicable IV Intake Infusion Intake 1,000 Cumulative Intake (Bag) 1,000 Cumulative Intake (Rx) 1,000 Container Volume 0 Volume Adjustment/Waste 0 Vancomycin HCl (Vancomycin 1gm/ Ns 250ml) 1 gm in 250 mls @ 167 mls/hr IV STAT ONE Stop: 12/22/19 16:25 Last Admin: 12/22/19 15:10 Dose: 167 mls/hr Med Admininistration (IV,IVP) Document 12/22/19 15:10 SE (Rec: 12/22/19 15:10 SE [id number]) Type of Administration Initial IV Push No Ketorolac Tromethamine (Toradol 30 Mg Injection) 30 mg IV STAT ONE Stop: 12/22/19 14:19 Last Admin: 12/22/19 14:19 Dose: 30 mg Med Admininistration (IV,IVP) Document 12/22/19 14:19 DH (Rec: 12/22/19 14:[address]) Type of Administration Initial IV Push Yes MAR PAIN Document 12/22/19 14:19 DH (Rec: 12/22/19 14:[address]) Reassesment Location Head Pain Scale Used 0-10 Pain Scale Pain Intensity (0-10) 8 Code(s): L03.114 - CELLULITIS OF LEFT UPPER LIMB (3) Depression with anxiety Current Visit: Yes Status: Acute Assessment & Plan: will continue patient on abilify and zoloft Code(s): F41.8 - OTHER SPECIFIED ANXIETY DISORDERS
--- NOTE | 2019-12-26 08:25 | PCM.DS ---
Discharge Summary Date of Admission: 12/24/19 12:15 Admitting Physician: EDA NOLASCO Consults: Consults on Case 12/25/19 09:34 Consult Tele-Health [Tele-Health Consult] ROUTINE Primary Care Provider: EDA NOLASCO Allergies Allergies Penicillins Allergy (Verified 12/22/19 14:01) Hospital Summary - Hospital Course Hospital Course: Chief Complaint Diagnosis CELLULITIS LUE Allergies Allergy/AdvReac Type Severity Reaction Status Date / Time Penicillins Allergy Verified 12/22/19 14:01 Vital Signs (Last 24 hours) Temp Pulse Resp BP Pulse Ox 12/26/19 07:22 98.3 F 68 18 119/57 97 12/26/19 04:26 98.1 F 73 18 141/77 97 12/25/19 23:56 98.2 F 71 17 125/76 97 12/25/19 18:00 97.6 F 78 14 129/71 98 12/25/19 12:00 97.5 F 88 16 141/83 98 Current Medications Generic Name Dose Route Start Last Admin Trade Name Freq PRN Reason Stop Dose Admin Acetaminophen 650 mg 12/22/19 15:36 Tylenol 325 Mg PO 01/21/20 15:35 Q4H PRN PRN PAIN AND/OR FEVER Aripiprazole 5 mg 12/23/19 14:00 12/25/19 10:17 Abilify 10 Mg PO 01/22/20 13:59 5 mg DAILY DOUGLAS Administration Ceftriaxone Sodium/Dextrose 1 g in 50 mls @ 100 mls/hr 12/23/19 10:00 10:17 Rocephin 1 Gm-D5w 50 Ml Bag IV 01/22/20 09:59 100 mls/hr Q24H10 DOUGLAS Administration Sodium Chloride 1,000 mls @ 100 mls/hr 12/22/19 15:36 12/26/19 02:58 Sodium Chloride 0.9% 1000 Ml IV 01/21/20 15:35 100 mls/hr .Q10H DOUGLAS Administration Vancomycin HCl 1 gm in 200 mls @ 133.333 mls/hr 12/22/19 22:00 12/25/19 21:26 Vancomycin 1 Gram/200 Ml Bag IV 01/21/20 21:59 133.333 mls/hr Q8HT DOUGLAS Administration Ketorolac Tromethamine 30 mg 12/22/19 15:36 12/25/19 11:01 Toradol 30 Mg Injection IV 12/27/19 15:35 30 mg Q6H PRN PRN Administration PAIN Morphine Sulfate 2 mg 12/24/19 12:12 12/24/19 18:01 Morphine Sulfate 2 Mg Inj IV 12/29/19 12:11 2 mg Q4H PRN PRN Administration PAIN Ondansetron HCl 4 mg 12/22/19 15:36 Zofran 4 Mg/2 Ml Vial IV 01/21/20 15:35 Q6H PRN PRN NAUSEA/VOMITING Pantoprazole Sodium 40 mg 12/23/19 16:00 12/25/19 17:23 Protonix 40mg Tablet PO 01/22/20 15:59 40 mg 1600 DOUGLAS Administration Sertraline HCl 100 mg 12/23/19 16:00 12/25/19 17:23 Zoloft 50 Mg Tablet PO 01/22/20 15:59 100 mg 1600 DOUGLAS Administration Discontinued Medications Generic Name Dose Route Start Last Admin Trade Name Freq PRN Reason Stop Dose Admin Device 1 12/24/19 05:30 12/24/19 18:30 Trough Drug Levels IJ 12/24/19 05:31 1 1XONLY ONE Administration Device 1 12/26/19 05:30 Trough Drug Levels IJ 12/26/19 05:31 1XONLY ONE Ceftriaxone Sodium/Dextrose 1 g in 50 mls @ 100 mls/hr 12/22/19 13:49 14:22 Rocephin 1 Gm-D5w 50 Ml Bag IV 12/22/19 14:18 Infused STAT ONE Infusion Ceftriaxone Sodium/Dextrose Confirm 12/22/19 14:02 Rocephin 1 Gm-D5w 50 Ml Bag Administered 12/22/19 14:03 Dose 1 g in 50 mls @ ud IV .STK-MED ONE Sodium Chloride 1,000 mls @ 999 mls/hr 12/22/19 14:06 12/22/19 15:20 Sodium Chloride 0.9% 1000 Ml IV 12/22/19 15:06 Infused .Q1H1M STA Infusion Sodium Chloride Confirm 12/22/19 14:16 Sodium Chloride 0.9% 1000 Ml Administered 12/22/19 14:17 Dose 1,000 mls @ ud .ROUTE .STK-MED ONE Vancomycin HCl 1 gm in 250 mls @ 167 mls/hr 12/22/19 14:56 12/22/19 15:10 Vancomycin 1gm/ Ns 250ml IV 12/22/19 16:25 167 mls/hr STAT ONE Administration Vancomycin HCl Confirm 12/22/19 15:09 Vancomycin 1gm/ Ns 250ml Administered 12/22/19 15:10 Dose 250 mls @ ud IV .STK-MED ONE Ketorolac Tromethamine 30 mg 12/22/19 14:18 12/22/19 14:19 Toradol 30 Mg Injection IV 12/22/19 14:19 30 mg STAT ONE Administration Ketorolac Tromethamine Confirm 12/22/19 14:18 Toradol 30 Mg Injection Administered 12/22/19 14:19 Dose 30 mg .ROUTE .STK-MED ONE Non-Formulary Medication 1 each 12/22/19 15:36 Pharmacy Dosing Required: Vancomycin IV 12/22/19 15:37 STAT ONE Intake & Output (Last 24 hours) 12/23/19 12/24/19 12/25/19 12/26/19 11:59 11:59 11:59 11:59 Intake Total 2233 3989 3620 3976 Balance 2233 3989 3620 3976 Weight 72.6 kg 72.6 kg Laboratory Results (Last 24 hours) 12/26/19 06:25 Vancomycin Trough 11.89 Orders (Last 24 hours) Category Date Time Status Consult Tele-Health [Tele-Health Consult] ROUTINE Cons 12/25/19 09:34 Completed C-Reactive Protein High Sens. Stat Lab 12/26/19 Ordered CRP, Quant [C-Reactive Protein, Quant] Stat Lab 12/26/19 Ordered Vancomycin, Trough Urgent Lab 12/26/19 06:25 Completed Therapuetic Drug Level Monitor [Trough Drug Levels] Med 12/26/19 05:30 Discontinued 1 IJ 1XONLY ONE Patient Care Notes (Last 24 hours) 12/25/19 16:43 Physical Therapy Note by Philly Epps PT. ASLEEP AND IN DARK ROOM UPON P.T. ARRIVAL. STARTLED W/ ATTEMPTS TO AWAKEN. NOTED CONT. 3+ EDEMA DORSAL HAND EVEN W/ TUBIGRIP. RECOMMEND TO CONT. W/ BARRIER CREAM AND USE OF TUBIGRIP. ADVISED PT. TO IMPROVE COMPLIANCE W/ ELEVATION TO DECREASE EDEMA. WILL CONT. TO MONITOR. PHILLY EPPS, PT Initialized on 12/25/19 16:43 - END OF NOTE 12/25/19 14:22 Nursing Note by Floridalma Muñiz Patient now agreeable to [facility] consult. Consent signed. Initialized on 12/25/19 14:22 - END OF NOTE 12/25/19 13:01 Case Management Note by Doris Thomas S/W FATHER- HE REPORTS PATIENT LIVES WITH HIM IN A SAFE HOUSE WITH ACCESS TO FOOD AND GROCERIES. HE STATED THEY CAN AFFORD SCRIPTS AND HE CAN PROVIDE TRANSPORTATION FOR PATIENT TO FOLLOW UP APPOINTMENTS NECESSARY. FATHER DENIED ANY NEEDS REGARDING DISCHARGE AT THIS TIME Initialized on 12/25/19 13:01 - END OF NOTE - Vitals & Intake/Output Vital Signs: Vital Signs Temperature 98.3 F 12/26/19 07:22 Pulse Rate 68 12/26/19 07:22 Respiratory Rate 18 12/26/19 07:22 Blood Pressure 119/57 12/26/19 07:22 O2 Sat by Pulse Oximetry 97 12/26/19 07:22 Intake & Output: Intake & Output 12/23/19 12/24/19 12/25/19 12/26/19 11:59 11:59 11:59 11:59 Intake Total 2233 3989 3620 3976 Balance 2233 3989 3620 3976 Weight 72.6 kg 72.6 kg - Lab Result Diagrams: 12/23/19 04:41 12/23/19 04:58 Lab Results-Last 24 Hrs: Lab Results-Last 24 Hours 12/26/19 Range/Units 06:25 Vancomycin Trough 11.89 (10-20) ug/mL Micro Results-Entire Visit: Microbiology 12/22/19 14:00 Blood Culture - Preliminary Blood NO GROWTH TO DATE 12/22/19 13:50 Blood Culture - Preliminary Blood NO GROWTH TO DATE - Radiology Exams Ordered Rad Exams-Entire Visit: Radiology Procedures Category Date Time Status MRI UPPER EXT NON-JOINT W & WO [MRI] Routine Exams 12/24/19 12:28 Completed - Procedures and Test Procedures and Tests throughout Hospitalization: Therapy Orders & Screens 12/23/19 09:15 PT Eval & Treat ( Order) ROUTINE Reason for Eval:: please evaluate wound and recommend treatment Diagnosis: Cellulitis of left hand Discharge Exam General Appearance: no apparent distress, alert Neurologic Exam: alert, oriented x 3, cooperative, normal mood/affect, nml cerebellar function, sensation nml, No motor deficits Eye Exam: PERRL, EOMI, eyes nml inspection Ears, Nose, Throat Exam: normal ENT inspection, pharynx normal, moist mucous membranes Neck Exam: normal inspection, non-tender, supple, full range of motion Respiratory Exam: normal breath sounds, lungs clear, No respiratory distress Cardiovascular Exam: regular rate/rhythm, normal heart sounds Gastrointestinal/Abdomen Exam: soft, No tenderness, No mass Male Genitalia Exam: deferred Rectal Exam: deferred Back Exam: normal inspection, normal range of motion, No CVA tenderness, No vertebral tenderness Extremity Exam: normal inspection, normal range of motion Skin Exam: normal color, warm, dry Final Diagnosis/Problem List - Final Discharge Diagnosis/Problem (1) Cellulitis of left upper extremity Current Visit: Yes Status: Acute Assessment & Plan: improved. will discharge home on levaquin 500 mg po daily for 7 days Code(s): L03.114 - CELLULITIS OF LEFT UPPER LIMB (2) Cellulitis of hand, left Current Visit: Yes Status: Acute Code(s): L03.114 - CELLULITIS OF LEFT UPPER LIMB (3) Depression with anxiety Current Visit: Yes Status: Acute Code(s): F41.8 - OTHER SPECIFIED ANXIETY DISORDERS - Discharge Disposition: Home, Self-Care Condition: Stable Prescriptions: New Aripiprazole 10 mg [Abilify 10 MG] 5 mg PO DAILY #30 tablet Levofloxacin [Levaquin] 500 mg PO DAILY #7 tablet Continue Sertraline HCl [Zoloft] 100 mg PO 1600 PANTOPRAZOLE 40 mg Tablet [Protonix 40MG Tablet] 40 mg PO 1600 Additional Instructions: physical therapy for wound care as outpatient Follow up with: EDA NOLASCO MD [Primary Care Provider] - 1 Week
[2019-12-27 21:08] LABS: C-Reactive Protein High Sens. 8.92 mg/L (0.00-3.00)
== END 2019-12-26 09:40 | disposition home or self-care (01) | DRG 603 ==
LOC: ED 13:37 → MED SURG 15:34 → OBSVTOIN 12-24 12:15
PROVIDERS: ADMIT General Practice; ATTEND General Practice
DX: L03.114 Cellulitis of left upper limb (principal); F41.8 Other specified anxiety disorders
CPT/HCPCS: 36415; 73130; 73220; 80048; 80053; 80202; 80307; 83605; 84550; 85025; 86140; 86141; 87040; 90791; 96360; 96365; 96367; 96374; 99284; A6457; G0378; J0696; J1885; J2270; J3370; Q3014; A9270-GY

== ENCOUNTER 2020-01-07 05:32 | Emergency (ER) | payer OTHER ==
--- NOTE | 2020-01-07 06:33 | ERPHSYRPT ---
- History of Present Illness Source: patient, family Exam Limitations: no limitations Patient Subjective Stated Complaint: Patient states " my feet are swelling and are very sore". Triage Nursing Assessment: Patient arrived to ER with father. Patient ambulated without difficulty. Patient alert and orientated times 4. Patient answers questions appropriatley. Patient with 2+ non-pitting edema to top of bilateral feet. No edema noted in bilateral lower extremities. + Pedal pulses in both feet. Cap refill < 3 seconds. Multiple callouses to sides of feet and bilateral heels. Patient denies SOB. Patient denies chest pain. Lungs clear bilateral A/P throughout. Patient states he eats alot of salty foods. Patient states right foot hurts more than left foot. Patient states when he is off his feet he has no pain. Patient states the pain is only when he walking. Timing/Duration: other (Chronic, recurrent) Severity: mild Associated Symptoms: other (Peeling of skin of his hands) Hx Tetanus, Diphtheria Vaccination/Date Given: Yes Hx Influenza Vaccination/Date Given: No Hx Pneumococcal Vaccination/Date Given: No Immunizations Up to Date: Yes <JOELLE VICTORIA - Last Filed: 01/07/20 06:51> <RACHEL MCCORMICK - Last Filed: 01/07/20 09:03> - History of Present Illness Time Seen by Provider: 01/07/20 06:10 Physician History: This is a 24-year-old gentleman presents with recurrent swelling and redness and tenderness to bilateral hands and feet. Patient had similar episodes in September 2019 and early December 2019. Patient was admitted by Dr. Nolasco the first week of December 2023 approximately 5 days and received Rocephin and vancomycin intravenously. Denies any new exposures to insect bites or chemicals. Denies fever. Patient is not exposed to any new medications. ( JOELLE VICTORIA) Allergies/Adverse Reactions: Penicillins Allergy (Verified 12/22/19 14:01) Home Medications: PANTOPRAZOLE 40 mg Tablet [Protonix 40MG Tablet] 40 mg PO 1600 09/28/19 [ History] Sertraline HCl [Zoloft] 100 mg PO 1600 09/28/19 [History] - Review of Systems Constitutional: No Symptoms Eyes: No Symptoms Ears, Nose, & Throat: No Symptoms Respiratory: No Symptoms Cardiac: No Symptoms Abdominal/Gastrointestinal: No Symptoms Genitourinary Symptoms: No Symptoms Musculoskeletal: No Symptoms Skin: Other (This to bilateral feet and hands. Mild swelling present to bilateral hands and feet) Neurological: No Symptoms Psychological: No Symptoms Endocrine: No Symptoms Hematologic/Lymphatic: No Symptoms Immunological/Allergic: No Symptoms All Other Systems: Reviewed and Negative <JOELLE VICTORIA - Last Filed: 01/07/20 06:51> - Past Medical History Pertinent Past Medical History: Yes Neurological History: Migraines ENT History: No Pertinent History Cardiac History: No Pertinent History Respiratory History: No Pertinent History Endocrine Medical History: No Pertinent History Musculoskeletal History: No Pertinent History, Other GI Medical History: GERD History: No Pertinent History Psycho-Social History: Depression Male Reproductive Disorders: No Pertinent History Other Medical History: heart murmur; cellulitis bilat hands - Past Surgical History Past Surgical History: Yes Neuro Surgical History: No Pertinent History Cardiac: No Pertinent History Respiratory: No Pertinent History Gastrointestinal: No Pertinent History Genitourinary: No Pertinent History Musculoskeletal: Orthopedic Surgery Male Surgical History: No Pertinent History Other Surgical History: finger x2 - Social History Smoking Status: Current every day smoker How long have you smoked: 7 years Exposure to second hand smoke: Yes Drug Use: none Patient Lives Alone: No <JOELLE VICTORIA - Last Filed: 01/07/20 06:51> - Physical Exam General Appearance: no apparent distress, alert, anxiety Eye Exam: PERRL/EOMI, eyes nml inspection Ears, Nose, Throat Exam: normal ENT inspection, moist mucous membranes Neck Exam: normal inspection, non-tender, supple, full range of motion Respiratory Exam: normal breath sounds, lungs clear, airway intact, No chest tenderness, No respiratory distress Cardiovascular Exam: regular rate/rhythm, normal heart sounds, normal peripheral pulses Gastrointestinal/Abdomen Exam: soft, normal bowel sounds, No tenderness Rectal Exam: not done Extremity Exam: normal inspection, normal range of motion, pelvis stable Neurologic Exam: alert, oriented x 3, cooperative, 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 There was excoriation/peeling of bilateral hands. The dorsum of the bilateral feet appears more red and mildly's more swollen than the plantar surface.) Lymphatic Exam: No adenopathy SpO2: 100 O2 Delivery: Room Air <JERROD VICTORIAMUNDO CelesteThiago - Last Filed: 01/07/20 06:51> - Nursing Vital Signs Nursing Vital Signs: Initial Vital Signs Temperature 97.4 F 01/07/20 05:42 Pulse Rate 88 01/07/20 05:42 Respiratory Rate 18 01/07/20 05:42 Blood Pressure 136/86 01/07/20 05:42 O2 Sat by Pulse Oximetry 100 01/07/20 05:42 Pain Scale Pain Intensity 6 - Course Nursing assessment & vital signs reviewed: Yes <VICTORIA,JOELLE CelesteThiago - Last Filed: 01/07/20 06:51> Ordered Tests: Active Orders 24 hr Category Date Time Status Clean Catch Urine Specimen STAT Care 01/07/20 07:01 Active IV Insertion STAT Care 01/07/20 07:00 Active BLOOD CULTURE Stat Lab 01/07/20 06:30 Received CBC W DIFF Stat Lab 01/07/20 06:55 Completed CMP Stat Lab 01/07/20 06:30 Completed ESR [Erythrocyte Sedimentation Rate] Stat Lab 01/07/20 07:00 Completed Lactic Acid Stat Lab 01/07/20 07:00 Completed NT PRO BNP Stat Lab 01/07/20 06:30 Completed UA W/RFX UR CULTURE Stat Lab 01/07/20 07:02 Uncollected Uric Acid Stat Lab 01/07/20 07:00 Completed Urine Triage Profile Stat Lab 01/07/20 Uncollected Medication Summary Generic Name Dose Route Start Last Admin Trade Name Freq PRN Reason Stop Dose Admin Sodium Chloride 1,000 mls @ 999 mls/hr 01/07/20 08:15 01/07/20 08:17 Sodium Chloride 0.9% 1000 Ml IV 01/07/20 09:15 999 mls/hr .Q1H1M STA Administration Discontinued Medications Generic Name Dose Route Start Last Admin Trade Name Freq PRN Reason Stop Dose Admin Sodium Chloride Confirm 01/07/20 08:15 Sodium Chloride 0.9% 1000 Ml Administered 01/07/20 08:16 Dose 1,000 mls @ ud .ROUTE .STK-MED ONE Lab/Rad Data: Laboratory Result Diagrams 01/07/20 06:55 01/07/20 06:30 Laboratory Results 01/07/20 01/07/20 01/07/20 Range/Units 07:00 07:00 07:00 WBC (4.0-10.5) K/mm3 RBC (4.1-5.6) M/mm3 Hgb (12.5-18.0) gm/dl Hct (42-50) % MCV (78-100) fl MCH (26-32) pg MCHC (32-36) g/dl RDW (11.5-14.0) % Plt Count (150-450) K/mm3 MPV (7.5-11.0) fl Gran % (36.0-66.0) % Eos # (Auto) (0-0.5) Absolute Lymphs (auto) (1.0-4.6) Absolute Monos (auto) (0.0-1.3) Lymphocytes % (24.0-44.0) % Monocytes % (0.0-12.0) % Eosinophils % (0.00-5.0) % Basophils % (0.0-0.4) % Absolute Granulocytes (1.4-6.9) Basophils # (0-0.4) ESR 12 (0-15) mm/hr Sodium (137-145) mmol/L Potassium (3.5-5.1) mmol/L Chloride (98-107) mmol/L Carbon Dioxide (22-30) mmol/L Anion Gap (5-15) MEQ/L BUN (9-20) mg/dL Creatinine (0.66-1.25) mg/dL Estimated GFR ML/MIN Glucose (74-106) mg/dL Lactic Acid 1.1 (0.4-2.0) Uric Acid 4.3 (3.5-7.2) mg/dL Calcium (8.4-10.2) mg/dL Total Bilirubin (0.2-1.3) mg/dL AST (17-59) U/L ALT (0-50) U/L Alkaline Phosphatase (38-126) U/L NT-Pro-B Natriuret Pep (0-450) pg/mL Serum Total Protein (6.3-8.2) g/dL Albumin (3.5-5.0) g/dL 01/07/20 01/07/20 Range/Units 06:55 06:30 WBC 12.2 H (4.0-10.5) K/mm3 RBC 5.05 (4.1-5.6) M/mm3 Hgb 14.8 (12.5-18.0) gm/dl Hct 44.3 (42-50) % MCV 87.7 (78-100) fl MCH 29.3 (26-32) pg MCHC 33.4 (32-36) g/dl RDW 13.8 (11.5-14.0) % Plt Count 273 (150-450) K/mm3 MPV 9.0 (7.5-11.0) fl Gran % 76.6 H (36.0-66.0) % Eos # (Auto) 0.19 (0-0.5) Absolute Lymphs (auto) 1.64 (1.0-4.6) Absolute Monos (auto) 0.97 (0.0-1.3) Lymphocytes % 13.5 L (24.0-44.0) % Monocytes % 8.0 (0.0-12.0) % Eosinophils % 1.6 (0.00-5.0) % Basophils % 0.3 (0.0-0.4) % Absolute Granulocytes 9.33 H (1.4-6.9) Basophils # 0.04 (0-0.4) ESR (0-15) mm/hr Sodium 136 L (137-145) mmol/L Potassium 4.1 (3.5-5.1) mmol/L Chloride 101 (98-107) mmol/L Carbon Dioxide 30 (22-30) mmol/L Anion Gap 8.2 (5-15) MEQ/L BUN 12 (9-20) mg/dL Creatinine 0.78 (0.66-1.25) mg/dL Estimated GFR > 60.0 ML/MIN Glucose 97 (74-106) mg/dL Lactic Acid (0.4-2.0) Uric Acid (3.5-7.2) mg/dL Calcium 9.3 (8.4-10.2) mg/dL Total Bilirubin 1.10 (0.2-1.3) mg/dL AST 26 (17-59) U/L ALT 14 (0-50) U/L Alkaline Phosphatase 118 (38-126) U/L NT-Pro-B Natriuret Pep 242 (0-450) pg/mL Serum Total Protein 7.6 (6.3-8.2) g/dL Albumin 4.1 (3.5-5.0) g/dL <JOELLE VICTORIA - Last Filed: 01/07/20 06:51> - Progress Progress: unchanged, pain not gone completely <RACHEL MCCORMICK - Last Filed: 01/07/20 09:03> - Progress Progress Note: 01/07/20 06:59 I reviewed the patient's history, condition, pending lab with Dr. Rachel Mccormick. He is assuming care of this patient at time of transfer. He accepts him in transfer. (JOELLE VITCORIA) <JOELLE VICTORIA - Last Filed: 01/07/20 06:51> - Departure Departure Disposition: Home Critical Care Time: No <RACHEL MCCORMICK - Last Filed: 01/07/20 09:03> - Departure Clinical Impression: Cellulitis Qualifiers: Site of cellulitis of extremity: lower extremity Laterality: right Condition: Stable Referrals: EDA NOLASCO MD [Primary Care Provider] - Instructions: Cellulitis (Skin Infection), Adult (DC) Prescriptions: Levofloxacin [Levaquin 500 MG Tablet] 500 mg PO DAILY #7 tablet Methylprednisolone Packet [Medrol Dosepack] 4 mg PO UD #1 packet
[2020-01-07 07:03] LABS: Absolute Neutrophil Ct (ANC) 9.33 (1.4-6.9); BASOPHIL % 0.3 % (0.0-0.4); Basophil (Absolute #) 0.04 (0-0.4); Eosinophil % 1.6 % (0.00-5.0); Eosinophil (Absolute #) 0.19 (0-0.5); Hematocrit 44.3 % (42-50); Hemoglobin 14.8 gm/dl (12.5-18.0); Lymphocyte (Absolute #) 1.64 (1.0-4.6); Lymphocytes % 13.5 % (24.0-44.0); Mean Cell Volume 87.7 fl (78-100); Mean Corpuscular Hemoglobin 29.3 pg (26-32); Mean Corpuscular Hgb Concent. 33.4 g/dl (32-36); Monocyte (Absolute #) 0.97 (0.0-1.3); Neutrophil % 76.6 % (36.0-66.0); Platelet Count 273 K/mm3 (150-450); Red Blood Count 5.05 M/mm3 (4.1-5.6); Red Cell Distribution Width 13.8 % (11.5-14.0); White Blood Count 12.2 K/mm3 (4.0-10.5)
[2020-01-07 07:21] LABS: ALBUMIN 4.1 g/dL (3.5-5.0); ALKALINE PHOSPHATASE 118 U/L (38-126); ANION GAP 8.2 MEQ/L (5-15); BLOOD UREA NITROGEN 12 mg/dL (9-20); CHLORIDE 101 mmol/L (98-107); Calcium 9.3 mg/dL (8.4-10.2); Carbon Dioxide 30 mmol/L (22-30); Creatinine 1 0.78 mg/dL (0.66-1.25); Glucose 97 mg/dL (74-106); NT PRO BNP 242 pg/mL (0-450); Potassium 4.1 mmol/L (3.5-5.1); SGOT/AST 26 U/L (17-59); SGPT/ALT 14 U/L (0-50); SODIUM 136 mmol/L (137-145); Total Protein 7.6 g/dL (6.3-8.2)
[2020-01-07] MEDS ORDERED: Sodium Chloride 0.9% 1000 ML 1,000 ML ONE (08:15)
[2020-01-07] MEDS ORDERED: Sodium Chloride 0.9% 1000 ML 1,000 ML IV STA (08:15)
[2020-01-07] MEDS ORDERED: solu-MEDROL 125 MG IV ONE (08:57)
[2020-01-07] MEDS ORDERED: LEVOFLOXACIN 750MG/150ML D5W 750 MG/150 ML BAG IV STA (08:58)
[2020-01-07] MEDS ORDERED: solu-MEDROL 125 MG ONE (08:59)
[2020-01-07] MEDS ORDERED: Levofloxacin 500 MG Tablet ONE (08:59)
[2020-01-07] MEDS ORDERED: Levofloxacin 250MG Tablet ONE ×2 (08:59→09:02)
[2020-01-07] MEDS ORDERED: Levofloxacin 250MG Tablet PO ONE (09:00)
[2020-01-07 09:31] VITALS: BP 129/82; PULSE 88; O2SAT 97
[2020-01-07 09:42] LABS: Appearance SLIGHTLY CLOUDY (CLEAR); Bilirubin NEGATIVE (NEGATIVE); Blood NEGATIVE Ery/ul (0-5); Glucose NEGATIVE (NEGATIVE); Ketones NEGATIVE (NEGATIVE); Leukocyte Esterase NEGATIVE (NEGATIVE); Mucus SLIGHT /HPF (NEGATIVE); Nitrite NEGATIVE (NEGATIVE); Protein,Urine Dip NEGATIVE (Negative); Specific Gravity 1.011 (1.005-1.025); Urobilinogen NEGATIVE mg/dL (0-1)
[2020-01-07 09:53] LABS: Barbiturate,Urine NEGATIVE (NEGATIVE); Benzodiazepine,Urine NEGATIVE (NEGATIVE); Cocaine,Urine NEGATIVE (NEGATIVE); Methadone,Urine NEGATIVE (NEGATIVE); Opiate,Urine NEGATIVE (NEGATIVE); PCP,Urine NEGATIVE (NEGATIVE); THC,Urine POSITIVE (NEGATIVE)
[2020-01-07 10:20] LABS: Amphetamine,Urine POSITIVE (NEGATIVE)
[2020-01-08 06:17] LABS: C-Reactive Protein High Sens. >20.00 mg/L (0.00-3.00)
== END 2020-01-07 09:42 | disposition home or self-care (01) ==
LOC: ED 05:32
DX: L03.115 Cellulitis of right lower limb (principal)
CPT/HCPCS: 36000; 36415; 80053; 80307; 81001; 83605; 83880; 84550; 85025; 85652; 86140; 86141; 87040; 96360; 96374; 99284; J2930; A9270-GY

== ENCOUNTER 2020-07-23 19:35 | Emergency (ER) | payer OTHER ==
--- NOTE | 2020-07-23 19:52 | ERPHSYRPT ---
- History of Present Illness Time Seen by Provider: 07/23/20 19:52 Source: patient Exam Limitations: no limitations Physician History: This is a 24-year-old white male who has had 5-day history of lower back pain. Patient was seen at a clinic and given an injection at the clinic then a prescription for diclofenac. Patient is taken that medication for a couple days and he states that it is not helping. 2 days ago, the patient underwent x-rays of the lumbar spine. There was no acute fracture or subluxation. The patient still has pain and he presents because of this lumbar level pain. Patient states there was no acute trauma but he did a lot of lifting twisting and turning at work 5 days ago. Patient has a history of depression and anxiety. Timing/Duration: day(s) Method of Injury: lifting, twisted, turning Quality: aching, throbbing Back Pain Location: lumbar spine Severity of Pain-Max: moderate Severity of Pain-Current: moderate Modifying Factors: Improves With: movement Associated Symptoms: lower back pain, muscle spasms, No urinary incontinence, No nausea, No vomiting, No numbness in legs/feet Previous symptoms: same symptoms as today, recently seen, recently treated Allergies/Adverse Reactions: Penicillins Allergy (Verified 12/22/19 14:01) Home Medications: PANTOPRAZOLE 40 mg Tablet [Protonix 40MG Tablet] 40 mg PO 1600 09/28/19 [History] Sertraline HCl [Zoloft] 100 mg PO 1600 09/28/19 [History] Diclofenac Sodium 1 tab PO BID 07/23/20 [History] Hx Tetanus, Diphtheria Vaccination/Date Given: Yes Hx Influenza Vaccination/Date Given: No Hx Pneumococcal Vaccination/Date Given: No Travel Risk - International Travel Have you traveled outside of the country in past 3 weeks: No - Coronavirus Screening Are you exhibiting any of the following symptoms?: No Close contact with a COVID-19 positive Pt in past 14-21 Days: No - Review of Systems Constitutional: No Symptoms Eyes: No Symptoms Ears, Nose, & Throat: No Symptoms Respiratory: No Symptoms Cardiac: No Symptoms Abdominal/Gastrointestinal: No Symptoms Genitourinary Symptoms: No Symptoms Musculoskeletal: Back Pain Skin: No Symptoms Neurological: No Symptoms Psychological: No Symptoms Endocrine: No Symptoms Hematologic/Lymphatic: No Symptoms Immunological/Allergic: No Symptoms All Other Systems: Reviewed and Negative - Past Medical History Pertinent Past Medical History: Yes Neurological History: Migraines ENT History: No Pertinent History Cardiac History: No Pertinent History Respiratory History: No Pertinent History Endocrine Medical History: No Pertinent History Musculoskeletal History: No Pertinent History, Other GI Medical History: GERD History: No Pertinent History Psycho-Social History: Depression Male Reproductive Disorders: No Pertinent History Other Medical History: heart murmur; cellulitis bilat hands - Past Surgical History Past Surgical History: Yes Neuro Surgical History: No Pertinent History Cardiac: No Pertinent History Respiratory: No Pertinent History Gastrointestinal: No Pertinent History Genitourinary: No Pertinent History Musculoskeletal: Orthopedic Surgery Male Surgical History: No Pertinent History Other Surgical History: finger x2 - Social History Smoking Status: Current every day smoker How long have you smoked: 7 years Exposure to second hand smoke: Yes Drug Use: none Patient Lives Alone: No - Nursing Vital Signs Nursing Vital Signs: Initial Vital Signs Temperature 99.7 F 07/23/20 19:36 Pulse Rate 100 H 07/23/20 19:36 Respiratory Rate 18 07/23/20 19:36 Blood Pressure 141/74 07/23/20 19:36 O2 Sat by Pulse Oximetry 99 07/23/20 19:36 Pain Scale Pain Intensity [Lower Back] 9 Pain Intensity 9 - Physical Exam General Appearance: no apparent distress, alert, anxiety Eye Exam: PERRL/EOMI, eyes nml inspection Ears, Nose, Throat Exam: normal ENT inspection, moist mucous membranes Neck Exam: normal inspection, non-tender, supple, full range of motion Respiratory Exam: airway intact, No chest tenderness, No respiratory distress Gastrointestinal Exam: No tenderness Rectal Exam: not done Back Exam: normal inspection, normal range of motion, muscle spasm, No CVA tenderness, No vertebral tenderness Extremity Exam: normal inspection, normal range of motion, pelvis stable Neurologic Exam: alert, oriented x 3, cooperative, 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, normal mood/affect, nml cerebellar function, nml station & gait, sensation nml Skin Exam: normal color, warm, dry Lymphatic Exam: No adenopathy SpO2 Interpretation: normal O2 Delivery: Room Air - Course Nursing assessment & vital signs reviewed: Yes Ordered Tests: Medication Summary Discontinued Medications Generic Name Dose Route Start Last Admin Trade Name Freq PRN Reason Stop Dose Admin Lorazepam 1 mg 07/23/20 20:36 Ativan 2 Mg/1 Ml Vial IM 07/23/20 20:37 STAT ONE Morphine Sulfate 4 mg 07/23/20 20:35 Morphine Sulfate 4 Mg Inj IM 07/23/20 20:36 STAT ONE Ondansetron HCl 4 mg 07/23/20 20:36 Zofran Odt 4 Mg PO 07/23/20 20:37 STAT ONE - Progress Progress: improved Counseled pt/family regarding: diagnosis, need for follow-up, rad results (I reviewed the results from the lumbar spine series that was performed on 07/21/2020) - Departure Departure Disposition: Home Clinical Impression: Back pain Condition: Stable Critical Care Time: No Referrals: EDA NOLASCO MD [Primary Care Provider] - Additional Instructions: Continue all your medications as prescribed. Follow-up with your primary care doctor for further management of your back pain Prescriptions: Carisoprodol 350 mg [Soma 350 mg] 350 mg PO Q12H PRN PRN #6 tablet PRN Reason: Muscle Spasms
[2020-07-23 20:06] VITALS: O2SAT 99
[2020-07-23] MEDS ORDERED: MORPHINE SULFATE 4 MG INJ IM ONE (20:35)
[2020-07-23] MEDS ORDERED: Ativan 2 MG/1 ML VIAL IM ONE (20:36)
[2020-07-23] MEDS ORDERED: ZOFRAN ODT 4 MG PO ONE (20:36)
[2020-07-23] MEDS ORDERED: Ativan 2 MG/1 ML VIAL ONE (20:46)
[2020-07-23] MEDS ORDERED: ZOFRAN ODT 4 MG ONE (20:46)
[2020-07-23] MEDS ORDERED: MORPHINE SULFATE 4 MG INJ ONE (20:47)
[2020-07-23 21:28] VITALS: BP 114/60; PULSE 94
== END 2020-07-23 21:13 | disposition home or self-care (01) ==
LOC: ED 19:35
DX: M54.5 Low back pain (principal); X50.0XXA Overexertion from strenuous movement or load, initial encounter; Y93.89 Activity, other specified; Y92.89 Other specified places as the place of occurrence of the external cause; Y99.0 Civilian activity done for income or pay
CPT/HCPCS: 96372; 99284; J2060; J2270; Q0162

== ENCOUNTER 2020-07-30 13:48 | Emergency (ER) | payer OTHER ==
[2020-07-30] MEDS ORDERED: TORAdol 30 mg Injection IM ONE (14:11)
[2020-07-30] MEDS ORDERED: TORAdol 30 mg Injection ONE (14:17)
[2020-07-30 14:46] LABS: Absolute Neutrophil Ct (ANC) 15.79 (1.4-6.9); BASOPHIL % 0.2 % (0.0-0.4); Basophil (Absolute #) 0.03 (0-0.4); Eosinophil % 0.2 % (0.00-5.0); Eosinophil (Absolute #) 0.04 (0-0.5); Hematocrit 42.3 % (42-50); Hemoglobin 14.6 gm/dl (12.5-18.0); Lymphocyte (Absolute #) 1.19 (1.0-4.6); Lymphocytes % 6.5 % (24.0-44.0); Mean Cell Volume 85.8 fl (78-100); Mean Corpuscular Hemoglobin 29.6 pg (26-32); Mean Corpuscular Hgb Concent. 34.5 g/dl (32-36); Mean Platelet Volume 9.6 fl (7.5-11.0); Monocyte (Absolute #) 1.36 (0.0-1.3); Monocytes % 7.4 % (0.0-12.0); Neutrophil % 85.7 % (36.0-66.0); Platelet Count 474 K/mm3 (150-450); Red Blood Count 4.93 M/mm3 (4.1-5.6); Red Cell Distribution Width 14.7 % (11.5-14.0); White Blood Count 18.4 K/mm3 (4.0-10.5)
[2020-07-30 14:52] LABS: ALBUMIN 3.4 g/dL (3.5-5.0); ALKALINE PHOSPHATASE 145 U/L (38-126); ANION GAP 12.8 MEQ/L (5-15); BLOOD UREA NITROGEN 18 mg/dL (9-20); CHLORIDE 89 mmol/L (98-107); Calcium 8.6 mg/dL (8.4-10.2); Carbon Dioxide 29 mmol/L (22-30); Creatinine 1 1.02 mg/dL (0.66-1.25); EST GLOMERULAR FILTRATION RATE > 60.0 ML/MIN; Glucose 134 mg/dL (74-106); SGOT/AST 82 U/L (17-59); SGPT/ALT 68 U/L (0-50); SODIUM 128 mmol/L (137-145); Total Protein 7.4 g/dL (6.3-8.2)
[2020-07-30 14:56] LABS: Potassium 2.9 mmol/L (3.5-5.1)
[2020-07-30] MEDS ORDERED: Merrem 1 GM 1 G in Sodium Chloride 100ML MINI-BAG PLUS 100 ML IV ONE (15:02)
[2020-07-30] MEDS ORDERED: CLINDAMYCIN-D5W 900 MG/50 ML*** 900 MG/50 ML BAG IV STA (15:03)
[2020-07-30] MEDS ORDERED: Sodium Chloride 0.9% 1000 ML 1,000 ML IV STA (15:04)
[2020-07-30] MEDS ORDERED: K-LYTE 25 MEQ PO ONE (15:04)
--- NOTE | 2020-07-30 15:09 | ERPHSYRPT ---
- History of Present Illness Time Seen by Provider: 07/30/20 14:00 Source: patient Exam Limitations: no limitations Patient Subjective Stated Complaint: pt here for pain to left shoulder for over a month now with redness and swelling , denies fever.pt was placed on antibotics and he doesnt know if it is for this infection, he aslo states he has been having lots of back pain, Triage Nursing Assessment: pt alert, arrvied per wc, resp easy, face mask in place, pt is dishovled, he is a poor historian, has swelling and reddness to left shoulder, pt unsure of injury Physician History: 24 years old male with a history of anxiety, depression presented in the ER with chief complaint of left upper shoulder swelling for almost 3 weeks and has finished 1 round of antibiotic and currently on Levaquin for the last 2 days pr esented with increasing swelling redness and moderate to severe intensity sharp pain which is aggravated with movements of the shoulder, palpation and better with being still and partial relief with taking NSAIDs. Subjective feeling of fever and chills. Patient denies any difficulty or limitation movements of shoulder. Pain is more proximal to shoulder in the trapezius muscle area. Patient reports initially there was one bump at the tip of shoulder and gradually got 2 more with progressive worsening. Method of Injury: unknown Severity of Pain-Max: moderate Severity of Pain-Current: moderate Extremities Pain Location: shoulder: left Modifying Factors: Improves With: movement, pain medication Allergies/Adverse Reactions: Penicillins Allergy (Verified 07/30/20 14:07) Home Medications: PANTOPRAZOLE 40 mg Tablet [Protonix 40MG Tablet] 40 mg PO 1600 09/28/19 [History] Sertraline HCl [Zoloft] 100 mg PO 1600 09/28/19 [History] Diclofenac Sodium 1 tab PO BID 07/23/20 [History] levoFLOXacin [Levofloxacin] 1 ea BID 07/30/20 [History] Hx Tetanus, Diphtheria Vaccination/Date Given: No Hx Influenza Vaccination/Date Given: No Hx Pneumococcal Vaccination/Date Given: No Immunizations Up to Date: Yes Travel Risk - International Travel Have you traveled outside of the country in past 3 weeks: No - Coronavirus Screening Are you exhibiting any of the following symptoms?: No Close contact with a COVID-19 positive Pt in past 14-21 Days: No - Review of Systems Constitutional: Fever, Chills, Fatigue Eyes: No Symptoms Ears, Nose, & Throat: No Symptoms Respiratory: No Symptoms Cardiac: No Symptoms Abdominal/Gastrointestinal: No Symptoms Genitourinary Symptoms: No Symptoms - Past Medical History Pertinent Past Medical History: No Neurological History: Migraines ENT History: No Pertinent History Cardiac History: No Pertinent History Respiratory History: No Pertinent History Endocrine Medical History: No Pertinent History Musculoskeletal History: No Pertinent History, Other GI Medical History: GERD History: No Pertinent History Psycho-Social History: Depression Male Reproductive Disorders: No Pertinent History Other Medical History: heart murmur; cellulitis bilat hands - Past Surgical History Past Surgical History: Yes Neuro Surgical History: No Pertinent History Cardiac: No Pertinent History Respiratory: No Pertinent History Gastrointestinal: No Pertinent History Genitourinary: No Pertinent History Musculoskeletal: Orthopedic Surgery Male Surgical History: No Pertinent History Other Surgical History: finger x2 - Social History Smoking Status: Current every day smoker How long have you smoked: 7 years Exposure to second hand smoke: Yes Drug Use: none Patient Lives Alone: No - Nursing Vital Signs Nursing Vital Signs: Initial Vital Signs Temperature 98.1 F 07/30/20 14:06 Pulse Rate 80 07/30/20 14:06 Respiratory Rate 18 07/30/20 14:06 Blood Pressure 123/73 07/30/20 14:06 O2 Sat by Pulse Oximetry 98 07/30/20 14:06 Pain Scale Pain Intensity 5 - Physical Exam SpO2: 98 Ordered Tests: Active Orders 24 hr Category Date Time Status IV Insertion STAT Care 07/30/20 15:04 Active BLOOD CULTURE Stat Lab 07/30/20 14:56 Received CBC W DIFF Stat Lab 07/30/20 14:34 Completed CMP Stat Lab 07/30/20 14:34 Completed Lactic Acid Stat Lab 07/30/20 14:23 Completed Transfer Order Routine Transfer 07/30/20 Ordered Medication Summary Generic Name Dose Route Start Last Admin Trade Name Freq PRN Reason Stop Dose Admin Meropenem 1 g/ Sodium Chloride 100 mls @ 200 mls/hr 07/30/20 15:02 IV 07/30/20 15:31 STAT ONE Clindamycin HCl/Dextrose 900 mg in 50 mls @ 100 mls/hr 07/30/20 15:03 Clindamycin-D5w 900 Mg/50 Ml IV 07/30/20 15:32 STAT STA Potassium Chloride 20 meq in 100 mls @ 50 mls/hr 07/30/20 15:15 Potassium Chloride 20 Meq In Water 100ml IV 07/30/20 19:14 Q2H DOUGLAS Sodium Chloride 1,000 mls @ 999 mls/hr 07/30/20 15:04 Sodium Chloride 0.9% 1000 Ml IV 07/30/20 16:04 .Q1H1M STA Discontinued Medications Generic Name Dose Route Start Last Admin Trade Name Freq PRN Reason Stop Dose Admin Ketorolac Tromethamine 30 mg 07/30/20 14:11 07/30/20 14:22 Toradol 30 Mg Injection IM 07/30/20 14:12 30 mg STAT ONE Administration Ketorolac Tromethamine Confirm 07/30/20 14:17 Toradol 30 Mg Injection Administered 07/30/20 14:18 Dose 30 mg .ROUTE .STK-MED ONE Potassium Bicarbonate 50 meq 07/30/20 15:04 K-Lyte 25 Meq PO 07/30/20 15:05 STAT ONE Lab/Rad Data: Laboratory Result Diagrams 07/30/20 14:34 07/30/20 14:34 Laboratory Results 07/30/20 07/30/20 07/30/20 Range/Units 14:34 14:34 14:23 WBC 18.4 H (4.0-10.5) K/mm3 RBC 4.93 (4.1-5.6) M/mm3 Hgb 14.6 (12.5-18.0) gm/dl Hct 42.3 (42-50) % MCV 85.8 (78-100) fl MCH 29.6 (26-32) pg MCHC 34.5 (32-36) g/dl RDW 14.7 H (11.5-14.0) % Plt Count 474 H (150-450) K/mm3 MPV 9.6 (7.5-11.0) fl Gran % 85.7 H (36.0-66.0) % Eos # (Auto) 0.04 (0-0.5) Absolute Lymphs (auto) 1.19 (1.0-4.6) Absolute Monos (auto) 1.36 H (0.0-1.3) Lymphocytes % 6.5 L (24.0-44.0) % Monocytes % 7.4 (0.0-12.0) % Eosinophils % 0.2 (0.00-5.0) % Basophils % 0.2 (0.0-0.4) % Absolute Granulocytes 15.79 H (1.4-6.9) Basophils # 0.03 (0-0.4) Sodium 128 L (137-145) mmol/L Potassium 2.9 L* (3.5-5.1) mmol/L Chloride 89 L (98-107) mmol/L Carbon Dioxide 29 (22-30) mmol/L Anion Gap 12.8 (5-15) MEQ/L BUN 18 (9-20) mg/dL Creatinine 1.02 (0.66-1.25) mg/dL Estimated GFR > 60.0 ML/MIN Glucose 134 H (74-106) mg/dL Lactic Acid 2.5 H (0.4-2.0) Calcium 8.6 (8.4-10.2) mg/dL Total Bilirubin 0.70 (0.2-1.3) mg/dL AST 82 H (17-59) U/L ALT 68 H (0-50) U/L Alkaline Phosphatase 145 H (38-126) U/L Serum Total Protein 7.4 (6.3-8.2) g/dL Albumin 3.4 L (3.5-5.0) g/dL - Progress Progress: pain not gone completely, re-examined Progress Note: 07/30/20 15:30 Has cellulitis in the trapezius area with remarkable tenderness. No fluctuation. Has a white count of 18 and lactate of 2.5. Started on clindamycin and meropenem as patient has outpatient oral antibiotic treatment failure. Also has mildly low mom potassium and is getting oral and IV potassium runs. Patient has mildly low sodium as well which I believe is secondary to his psych meds. Getting normal saline. Discussed with Dr. Nelson and patient is being admitted. Discussed with : Nikita Will see patient in: hospital (observation) Counseled pt/family regarding: lab results, diagnosis - Departure Departure Disposition: Observation Clinical Impression: Cellulitis of left upper extremity, Hypokalemia Condition: Stable Critical Care Time: No Referrals: EDA NOLASCO MD [Primary Care Provider] -
[2020-07-30] MEDS ORDERED: Sodium Chloride 0.9% 1000 ML 1,000 ML ONE (15:56)
[2020-07-30] MEDS ORDERED: K-LYTE 25 MEQ ONE (15:56)
[2020-07-30] MEDS ORDERED: CLINDAMYCIN-D5W 900 MG/50 ML*** 900 MG/50 ML BAG IV ONE (15:56)
[2020-07-30] MEDS ORDERED: TYLENOL 325 MG PO PRN (16:32)
[2020-07-30] MEDS ORDERED: Zofran 4 MG/2 ML VIAL IV PRN (16:32)
[2020-07-30] MEDS ORDERED: TYLENOL EXTRA STRENGTH 500 MG PO PRN (17:38)
[2020-07-30] MEDS ORDERED: Merrem 1 GM IV ONE (17:50)
[2020-07-30] MEDS ORDERED: Sodium Chloride 0.9% 100 ML IVPB 100 ML IV ONE (17:51)
[2020-07-30] MEDS: NORCO 5/325 MG PO PRN ×2 (18:18→23:03)
[2020-07-30] MEDS: POTASSIUM CHLORIDE 20 mEq IN WATER 100ML 20 MEQ/100 ML BAG IV SCH ×2 (18:46→21:08)
[2020-07-30] MEDS: Sodium Chloride 0.9% 1000 ML 1,000 ML IV SCH (20:02)
[2020-07-30] MEDS ORDERED: MERREM 500MG IV ONE (20:27)
[2020-07-30] MEDS ORDERED: Sodium Chloride 100ML MINI-BAG PLUS 100 ML IV ONE (20:29)
[2020-07-30] MEDS: Pepcid 20 MG VIAL IV SCH (21:08)
[2020-07-30] MEDS: VOLTAREN 50 MG PO SCH (21:09)
[2020-07-30] MEDS: CLINDAMYCIN-D5W 600 MG/50 ML*** 600 MG/50 ML BAG IV SCH (23:04)
[2020-07-31] MEDS: MERREM 500MG 500 MG in Sodium Chloride 100ML MINI-BAG PLUS 100 ML IV SCH ×4 (02:02→17:37)
[2020-07-31] MEDS: NORCO 5/325 MG PO PRN ×5 (03:05→22:17)
[2020-07-31 03:11] LABS: Hematocrit 36.2 % (42-50); Hemoglobin 12.4 gm/dl (12.5-18.0); Mean Cell Volume 86.6 fl (78-100); Mean Corpuscular Hemoglobin 29.7 pg (26-32); Mean Corpuscular Hgb Concent. 34.3 g/dl (32-36); Platelet Count 493 K/mm3 (150-450); Red Blood Count 4.18 M/mm3 (4.1-5.6); Red Cell Distribution Width 14.5 % (11.5-14.0); White Blood Count 14.5 K/mm3 (4.0-10.5)
[2020-07-31 03:39] LABS: ALBUMIN 2.9 g/dL (3.5-5.0); ALKALINE PHOSPHATASE 130 U/L (38-126); ANION GAP 9.3 MEQ/L (5-15); BLOOD UREA NITROGEN 18 mg/dL (9-20); CHLORIDE 98 mmol/L (98-107); Calcium 8.2 mg/dL (8.4-10.2); Carbon Dioxide 29 mmol/L (22-30); Creatinine 1 1.04 mg/dL (0.66-1.25); EST GLOMERULAR FILTRATION RATE > 60.0 ML/MIN; Glucose 110 mg/dL (74-106); Potassium 3.1 mmol/L (3.5-5.1); SGOT/AST 80 U/L (17-59); SGPT/ALT 69 U/L (0-50); SODIUM 133 mmol/L (137-145); Total Protein 6.7 g/dL (6.3-8.2)
[2020-07-31 04:46] LABS: Eosinophil 1 % (0.00-3.0); Lymphocytes 15 % (24-44); Monocyte 8 % (0.0-12.0); Neutrophils 76 % (36.-66.); Platelet Estimate INCREASED (NORMAL); Total Cells Counted 100
[2020-07-31 04:47] LABS: Toxic Granulation 1+
[2020-07-31] MEDS: CLINDAMYCIN-D5W 600 MG/50 ML*** 600 MG/50 ML BAG IV SCH ×3 (06:32→22:17)
[2020-07-31] MEDS: Sodium Chloride 0.9% 1000 ML 1,000 ML IV SCH ×3 (07:20→22:18)
[2020-07-31] MEDS: Abilify 10 MG PO SCH (09:13)
[2020-07-31] MEDS: VOLTAREN 50 MG PO SCH ×2 (09:13→23:17)
[2020-07-31] MEDS: Pepcid 20 MG VIAL IV SCH ×2 (09:13→22:18)
[2020-07-31] MEDS ORDERED: Klor Con 10 MEQ PO ONE (11:43)
--- NOTE | 2020-07-31 11:54 | PCM.HP ---
History of Present Illness - Chief Complaint Chief Complaint: cellulitis upper extremity History of Present Illness: is a 24 year old male patient of Dr White being treated as outpatient for cellulitis left shoulder/trapezius area. He presented to ER because the pain is unbearable.The area has been bothering him for about a month,denies any injury or bug bite. He has Hx cellulitis in left hand and has chronic anxiety and depression on Abilify and Zoloft. He works at the [employer]. - Review of Systems Constitutional: Fever, Chills, Night Sweats, Weight Loss Eyes: No Symptoms Ears, Nose, & Throat: No Symptoms Respiratory: No Symptoms Cardiac: No Symptoms Abdominal/Gastrointestinal: Appetite Changes (loss of appetite) Genitourinary Symptoms: No Symptoms Musculoskeletal: Back Pain (low back pain Mother states he bruised it and had xrays but no MRI and has been off work for a few weeks because of this) Skin: Cellulitis Neurological: Irritability Psychological: Anxiety, Depression Hematologic/Lymphatic: No Symptoms Medications & Allergies Home Medications: Home Medication List PANTOPRAZOLE 40 mg Tablet [Protonix 40MG Tablet] 40 mg PO 1600 09/28/19 [History Confirmed 07/30/20] Sertraline HCl [Zoloft] 100 mg PO 1600 09/28/19 [History Confirmed 07/30/20] Aripiprazole 10 mg [Abilify 10 MG] 5 mg PO DAILY #30 tablet 12/26/19 [Rx Confirmed 07/30/20] Diclofenac Sodium 1 tab PO BID 07/23/20 [History Confirmed 07/30/20] levoFLOXacin [Levofloxacin] 1 ea BID 07/30/20 [History Confirmed 07/30/20] Allergies/Adverse Reactions: Allergies Allergy/AdvReac Type Severity Reaction Status Date / Time Penicillins Allergy Verified 07/30/20 14:07 - Past Medical History Past Medical History: Yes Neurological History: Migraines ENT History: No Pertinent History Cardiac History: No Pertinent History Respiratory History: No Pertinent History Endocrine Medical History: No Pertinent History Musculoskelatal History: Other GI Medical History: GERD History: No Pertinent History Pyscho-Social History: Depression Male Reproductive Disorders: No Pertinent History Comment: heart murmur; cellulitis bilat hands - Past Surgical History Past Surgical History: Yes Neuro Surgical History: No Pertinent History Cardiac History: No Pertinent History Respiratory Surgery: No Pertinent History GI Surgical History: No Pertinent History Genitourinary Surgical Hx: No Pertinent History Musculskeletal Surgical Hx: Orthopedic Surgery Male Surgical History: No Pertinent History Other Surgical History: finger x2 - Social History Smoking Status: Current every day smoker How long have you smoked: 8 years Exposure to second hand smoke: Yes Alcohol: None Drug Use: none - Physical Exam Vital Signs: Vital Signs - 24 hr Temp Pulse Resp BP Pulse Ox 07/31/20 08:00 75 14 104/61 94 L 07/31/20 03:47 97.9 F 66 18 112/59 97 07/30/20 23:52 98.5 F 73 16 115/65 97 07/30/20 20:01 98.0 F 84 21 107/63 95 07/30/20 16:35 98.1 F 80 123/73 98 07/30/20 15:31 98 07/30/20 14:06 98.1 F 80 18 123/73 98 General Appearance: moderate distress (diaphoretic, chilling), lethargy, other (patient slept through [employer] then I rechecked him and he was no loger diaphoretic and was hungryand went on to eat a hamburger.) Neurologic Exam: agitation Eye Exam: PERRL/EOMI, eyes nml inspection Ears, Nose, Throat Exam: moist mucous membranes Neck Exam: normal inspection Respiratory Exam: normal breath sounds Cardiovascular Exam: regular rate/rhythm Gastrointestinal/Abdomen Exam: normal bowel sounds (nntender) Back Exam: point tenderness (lumbar area with soft tissue swellinganr tenderness,skin intact not discolored) Extremity Exam: other (left trapezius area with approx [id number] red,raised hot,tender eruption,skin is intact) Wound Assessment: Skin/Wound Assessment Wound/Incision Assessment Start: 07/30/20 20:00 Text: Status: Active Freq: Q6H Protocol: Document 07/31/20 08:00 LUZ MARINA (Rec: 07/31/20 08:30 LUZ MARINA [id number]) Wound/Incision Assessment Left Shoulder Wound Assessment Shift Assessment Wound Type Cellulitis Wound Stage Non Pressure Wound Drainage Amount None Drainage Odor None/Absent General Appearance Open to air,Reddened Comment Area reddened, warm and tender to touch. Redness circled. No change noted. Right Elbow Wound Assessment Shift Assessment Wound Type Cellulitis Wound Stage Non Pressure Wound Drainage Amount None Drainage Odor None/Absent General Appearance Open to air,Reddened Surrounding Tissue Bright Red Comment Red, not open, tender and warm to touch. No change noted. Results - Labs Lab/Micro Results: Lab Results-Last 24 Hours 07/30/20 07/30/20 07/30/20 Range/Units 14:23 14:34 14:34 WBC 18.4 H (4.0-10.5) K/mm3 RBC 4.93 (4.1-5.6) M/mm3 Hgb 14.6 (12.5-18.0) gm/dl Hct 42.3 (42-50) % MCV 85.8 (78-100) fl MCH 29.6 (26-32) pg MCHC 34.5 (32-36) g/dl RDW 14.7 H (11.5-14.0) % Plt Count 474 H (150-450) K/mm3 MPV 9.6 (7.5-11.0) fl Gran % 85.7 H (36.0-66.0) % Eos # (Auto) 0.04 (0-0.5) Absolute Lymphs (auto) 1.19 (1.0-4.6) Absolute Monos (auto) 1.36 H (0.0-1.3) Lymphocytes % 6.5 L (24.0-44.0) % Monocytes % 7.4 (0.0-12.0) % Eosinophils % 0.2 (0.00-5.0) % Basophils % 0.2 (0.0-0.4) % Absolute Granulocytes 15.79 H (1.4-6.9) Segmented Neutrophils (36.-66.) % Lymphocytes (Manual) (24-44) % Monocytes (Manual) (0.0-12.0) % Eosinophils (Manual) (0.00-3.0) % Basophils # 0.03 (0-0.4) Toxic Granulation Platelet Estimate (NORMAL) RBC Morphology Sodium 128 L (137-145) mmol/L Potassium 2.9 L* (3.5-5.1) mmol/L Chloride 89 L (98-107) mmol/L Carbon Dioxide 29 (22-30) mmol/L Anion Gap 12.8 (5-15) MEQ/L BUN 18 (9-20) mg/dL Creatinine 1.02 (0.66-1.25) mg/dL Estimated GFR > 60.0 ML/MIN Glucose 134 H (74-106) mg/dL Lactic Acid 2.5 H (0.4-2.0) Calcium 8.6 (8.4-10.2) mg/dL Total Bilirubin 0.70 (0.2-1.3) mg/dL AST 82 H (17-59) U/L ALT 68 H (0-50) U/L Alkaline Phosphatase 145 H (38-126) U/L Serum Total Protein 7.4 (6.3-8.2) g/dL Albumin 3.4 L (3.5-5.0) g/dL 07/31/20 07/31/20 Range/Units 03:08 03:08 WBC 14.5 H (4.0-10.5) K/mm3 RBC 4.18 (4.1-5.6) M/mm3 Hgb 12.4 L (12.5-18.0) gm/dl Hct 36.2 L (42-50) % MCV 86.6 (78-100) fl MCH 29.7 (26-32) pg MCHC 34.3 (32-36) g/dl RDW 14.5 H (11.5-14.0) % Plt Count 493 H (150-450) K/mm3 MPV 9.0 (7.5-11.0) fl Gran % (36.0-66.0) % Eos # (Auto) (0-0.5) Absolute Lymphs (auto) (1.0-4.6) Absolute Monos (auto) (0.0-1.3) Lymphocytes % (24.0-44.0) % Monocytes % (0.0-12.0) % Eosinophils % (0.00-5.0) % Basophils % (0.0-0.4) % Absolute Granulocytes (1.4-6.9) Segmented Neutrophils 76 H (36.-66.) % Lymphocytes (Manual) 15 L (24-44) % Monocytes (Manual) 8 (0.0-12.0) % Eosinophils (Manual) 1 (0.00-3.0) % Basophils # (0-0.4) Toxic Granulation 1+ Platelet Estimate INCREASED (NORMAL) RBC Morphology NORMAL Sodium 133 L (137-145) mmol/L Potassium 3.1 L (3.5-5.1) mmol/L Chloride 98 (98-107) mmol/L Carbon Dioxide 29 (22-30) mmol/L Anion Gap 9.3 (5-15) MEQ/L BUN 18 (9-20) mg/dL Creatinine 1.04 (0.66-1.25) mg/dL Estimated GFR > 60.0 ML/MIN Glucose 110 H (74-106) mg/dL Lactic Acid (0.4-2.0) Calcium 8.2 L (8.4-10.2) mg/dL Total Bilirubin 0.60 (0.2-1.3) mg/dL AST 80 H (17-59) U/L ALT 69 H (0-50) U/L Alkaline Phosphatase 130 H (38-126) U/L Serum Total Protein 6.7 (6.3-8.2) g/dL Albumin 2.9 L (3.5-5.0) g/dL Assessment/Plan (1) Cellulitis of left upper extremity Current Visit: Yes Status: Acute Assessment & Plan: failed outpatient tx Levaquin,allergic to PCN started on IV Clindamycin and Meropenem,blood cultures pending.WBC has improved Code(s): L03.114 - CELLULITIS OF LEFT UPPER LIMB (2) Hypokalemia Current Visit: Yes Status: Acute Assessment & Plan: Krider and Klyte 50meq given yesterday on admission,K+ this am was 3.1 and Kdur 20meq ordered stat and bid x 4 doses.recheck in AM. Code(s): E87.6 - HYPOKALEMIA (3) Acute bilateral low back pain Current Visit: Yes Status: Acute Code(s): M54.5 - LOW BACK PAIN (4) Low back pain Current Visit: Yes Status: Acute Qualifiers: Chronicity: unspecified Back pain laterality: midline Assessment & Plan: Hx contusion approx 3 weeks ago affecting ambulation xray as outpatient has not yet had MRI-scheduled MRI for Am=M Code(s): M54.5 - LOW BACK PAIN
[2020-07-31] MEDS: TORAdol 30 mg Injection IV PRN ×2 (13:22→22:17)
[2020-07-31] MEDS: Protonix 40MG Tablet PO SCH (17:37)
[2020-07-31] MEDS: ZOLOFT 50 MG TABLET PO SCH (17:37)
[2020-07-31] MEDS: Klor Con 10 MEQ PO SCH (22:17)
[2020-08-01] MEDS: MERREM 500MG 500 MG in Sodium Chloride 100ML MINI-BAG PLUS 100 ML IV SCH ×2 (02:52→10:08)
[2020-08-01] MEDS: NORCO 5/325 MG PO PRN ×2 (05:42→09:20)
[2020-08-01] MEDS: CLINDAMYCIN-D5W 600 MG/50 ML*** 600 MG/50 ML BAG IV SCH ×2 (05:42→14:03)
[2020-08-01 07:41] VITALS: BP 120/70; PULSE 81; O2SAT 97
[2020-08-01] MEDS: Sodium Chloride 0.9% 1000 ML 1,000 ML IV SCH (07:53)
[2020-08-01 08:37] LABS: Hematocrit 37.7 % (42-50); Hemoglobin 12.3 gm/dl (12.5-18.0); Mean Cell Volume 89.3 fl (78-100); Mean Corpuscular Hemoglobin 29.1 pg (26-32); Mean Corpuscular Hgb Concent. 32.6 g/dl (32-36); Mean Platelet Volume 8.8 fl (7.5-11.0); Platelet Count 477 K/mm3 (150-450); Red Blood Count 4.22 M/mm3 (4.1-5.6); Red Cell Distribution Width 14.9 % (11.5-14.0); White Blood Count 11.8 K/mm3 (4.0-10.5)
[2020-08-01] MEDS: TORAdol 30 mg Injection IV PRN (09:20)
[2020-08-01] MEDS: Abilify 10 MG PO SCH (09:20)
[2020-08-01] MEDS: Protonix 40MG Tablet PO SCH (09:20)
[2020-08-01] MEDS: Klor Con 10 MEQ PO SCH (09:20)
[2020-08-01] MEDS: Pepcid 20 MG VIAL IV SCH (09:20)
[2020-08-01] MEDS: ZOLOFT 50 MG TABLET PO SCH (09:20)
[2020-08-01] MEDS: VOLTAREN 50 MG PO SCH (09:21)
[2020-08-01 09:36] LABS: ALBUMIN 2.7 g/dL (3.5-5.0); ALKALINE PHOSPHATASE 94 U/L (38-126); ANION GAP 7.3 MEQ/L (5-15); BLOOD UREA NITROGEN 18 mg/dL (9-20); CHLORIDE 103 mmol/L (98-107); Calcium 8.1 mg/dL (8.4-10.2); Carbon Dioxide 28 mmol/L (22-30); Creatinine 1 0.73 mg/dL (0.66-1.25); EST GLOMERULAR FILTRATION RATE > 60.0 ML/MIN; Glucose 103 mg/dL (74-106); Potassium 3.7 mmol/L (3.5-5.1); SGOT/AST 54 U/L (17-59); SGPT/ALT 57 U/L (0-50); SODIUM 135 mmol/L (137-145); Total Protein 6.5 g/dL (6.3-8.2)
[2020-08-01 11:17] LABS: BAND 1 % (0.0-2.0); Lymphocytes 17 % (24-44); Monocyte 1 % (0.0-12.0); Neutrophils 81 % (36.-66.); Platelet Estimate NORMAL (NORMAL); Total Cells Counted 100; Toxic Granulation 1+
--- NOTE | 2020-08-01 12:05 | PCM.NOTE ---
Date and Time: 08/01/20 1203 Subjective Assessment: joints are still swollen, - Review of Systems Constitutional: No Fever, No Chills Eyes: No Symptoms Ears, Nose, & Throat: No Symptoms Respiratory: No Cough, No Short Of Breath Cardiac: No Chest Pain, No Edema, No Syncope Abdominal/Gastrointestinal: No Abdominal Pain, No Nausea, No Vomiting, No Diarrhea Genitourinary Symptoms: No Dysuria Musculoskeletal: Joint Redness, Joint Pain, Joint Swelling, No Back Pain, No Neck Pain Skin: No Rash Neurological: No Dizziness, No Focal Weakness, No Sensory Changes Psychological: No Symptoms Endocrine: No Symptoms Hematologic/Lymphatic: No Symptoms Immunological/Allergic: No Symptoms Objective Exam General Appearance: no apparent distress, alert Neurologic Exam: alert, oriented x 3, cooperative, normal mood/affect, nml cerebellar function, sensation nml, No motor deficits Skin Exam: normal color, warm, dry Wound Assessment: Skin/Wound Assessment Wound/Incision Assessment Start: 07/30/20 20:00 Text: Status: Active Freq: Q6H Protocol: Document 08/01/20 07:56 LUZ MARINA (Rec: 08/01/20 08:02 LUZ MARINA [id number]) Wound/Incision Assessment Left Shoulder Wound Assessment Shift Assessment Wound Type Cellulitis Wound Stage Non Pressure Wound Drainage Amount None Drainage Odor None/Absent General Appearance Open to air,Reddened Surrounding Tissue [place] Comment -Redness improved, backing away from circled area. Not as edematous as yesterday's assessments. Right Elbow Wound Assessment Shift Assessment Wound Type Cellulitis Wound Stage Non Pressure Wound Drainage Amount None Drainage Odor None/Absent General Appearance Open to air Surrounding Tissue [place] Comment no redness seen. pt not cooperative with assessment. Wound Photo Photo Taken No Eye Exam: PERRL, EOMI, eyes nml inspection Ears, Nose, Throat Exam: normal ENT inspection, pharynx normal, moist mucous membranes Neck Exam: normal inspection, non-tender, supple, full range of motion Respiratory Exam: normal breath sounds, lungs clear, No respiratory distress Cardiovascular Exam: regular rate/rhythm, normal heart sounds Gastrointestinal/Abdomen Exam: soft, No tenderness, No mass Extremity Exam: normal inspection, normal range of motion Back Exam: normal inspection, normal range of motion, No CVA tenderness, No vertebral tenderness Male Genitalia Exam: deferred Rectal Exam: deferred OBJECTIVE DATA Vital Signs: Vital Signs - 24 hr Temp Pulse Resp BP Pulse Ox 08/01/20 07:41 98.4 F 81 20 120/70 97 08/01/20 03:40 98.3 F 79 18 108/63 94 L 07/31/20 23:56 98.3 F 76 18 104/56 96 07/31/20 19:59 97.9 F 81 16 106/55 96 07/31/20 15:55 97.7 F 74 16 100/62 95 Pain Assessment - Last Documented Pain Intensity 10 Pain Scale Used 0-10 Pain Scale Intake and Output: Intake & Output 07/30/20 07/31/20 08/01/20 08/02/20 11:59 11:59 11:59 11:59 Intake Total 2970 4656 Balance 2970 4656 Weight 75.1 kg 76.8 kg Lab Results: Lab Results-Last 24 Hours 08/01/20 08/01/20 Range/Units 08:20 08:20 WBC 11.8 H (4.0-10.5) K/mm3 RBC 4.22 (4.1-5.6) M/mm3 Hgb 12.3 L (12.5-18.0) gm/dl Hct 37.7 L (42-50) % MCV 89.3 (78-100) fl MCH 29.1 (26-32) pg MCHC 32.6 (32-36) g/dl RDW 14.9 H (11.5-14.0) % Plt Count 477 H (150-450) K/mm3 MPV 8.8 (7.5-11.0) fl Segmented Neutrophils 81 H (36.-66.) % Band Neutrophils 1 (0.0-2.0) % Lymphocytes (Manual) 17 L (24-44) % Monocytes (Manual) 1 (0.0-12.0) % Toxic Granulation 1+ Platelet Estimate NORMAL (NORMAL) RBC Morphology NORMAL Sodium 135 L (137-145) mmol/L Potassium 3.7 (3.5-5.1) mmol/L Chloride 103 (98-107) mmol/L Carbon Dioxide 28 (22-30) mmol/L Anion Gap 7.3 (5-15) MEQ/L BUN 18 (9-20) mg/dL Creatinine 0.73 (0.66-1.25) mg/dL Estimated GFR > 60.0 ML/MIN Glucose 103 (74-106) mg/dL Calcium 8.1 L (8.4-10.2) mg/dL Total Bilirubin 0.80 (0.2-1.3) mg/dL AST 54 (17-59) U/L ALT 57 H (0-50) U/L Alkaline Phosphatase 94 (38-126) U/L Serum Total Protein 6.5 (6.3-8.2) g/dL Albumin 2.7 L (3.5-5.0) g/dL Radiology Exams: Radiology Procedures Category Date Time Status MRI L-SPINE WITHOUT CONTRAST [MRI] Routine Exams 08/01/20 08:00 Ordered Assessment/Plan (1) Cellulitis of left upper extremity Current Visit: Yes Status: Acute Assessment & Plan: Last Vital Signs Temp 98.4 F 08/01/20 07:41 Pulse 81 08/01/20 07:41 Resp 20 08/01/20 07:41 BP 120/70 08/01/20 07:41 Pulse Ox 97 08/01/20 07:41 Allergies Penicillins Allergy (Verified 07/30/20 14:07) Active Medications Acetaminophen (Tylenol Extra Strength 500 Mg) 1,000 mg PO Q4H PRN PRN PRN Reason: Pain rating 1-4 Stop: 08/29/20 17:37 Hydrocodone Bitart/Acetaminophen ([place] 5/325 Mg) 1 tab PO Q4H PRN PRN PRN Reason: Pain rating 5-10 Stop: 08/04/20 17:36 Last Admin: 08/01/20 09:20 Dose: 1 tab Documented by: Aripiprazole (Abilify 10 Mg) 5 mg PO DAILY [facility] Stop: 08/30/20 09:59 Last Admin: 08/01/20 09:20 Dose: 5 mg Documented by: Diclofenac Sodium (Voltaren 50 Mg) 50 mg PO BID [facility] Stop: 08/29/20 21:59 Last Admin: 08/01/20 09:21 Dose: 50 mg Documented by: Famotidine (Pepcid 20 Mg Vial) 20 mg IV Q12HT [facility] Stop: 08/29/20 21:59 Last Admin: 08/01/20 09:20 Dose: 20 mg Documented by: Sodium Chloride (Sodium Chloride 0.9% 1000 Ml) 1,000 mls @ 100 mls/hr IV .Q10H DOUGLAS Stop: 08/29/20 16:31 Last Admin: 08/01/20 07:53 Dose: 100 mls/hr Documented by: Clindamycin HCl/Dextrose (Clindamycin-D5w 600 Mg/50 Ml) 600 mg in 50 mls @ 100 mls/hr IV Q8HT DOUGLAS Stop: 08/29/20 21:59 Last Admin: 08/01/20 05:42 Dose: 100 mls/hr Documented by: Meropenem 500 mg/ Sodium (Chloride) 100 mls @ 200 mls/hr IV Q8H DOUGLAS Stop: 08/30/20 09:59 Last Admin: 08/01/20 10:08 Dose: 200 mls/hr Documented by: Ketorolac Tromethamine (Toradol 30 Mg Injection) 30 mg IV Q6H PRN PRN PRN Reason: PAIN Stop: 08/04/20 16:31 Last Admin: 08/01/20 09:20 Dose: 30 mg Documented by: Ondansetron HCl (Zofran 4 Mg/2 Ml Vial) 4 mg IV Q6H PRN PRN PRN Reason: NAUSEA/VOMITING Stop: 08/29/20 16:31 Pantoprazole Sodium (Protonix 40mg Tablet) 40 mg PO DAILY DOUGLAS Stop: 08/30/20 17:42 Last Admin: 08/01/20 09:20 Dose: 40 mg Documented by: Potassium Chloride (Klor Con 10 Meq) 20 meq PO BID DOUGLAS Stop: 08/03/20 04:00 Last Admin: 08/01/20 09:20 Dose: 20 meq Documented by: Sertraline HCl (Zoloft 50 Mg Tablet) 100 mg PO DAILY DOUGLAS Stop: 08/30/20 17:43 Last Admin: 08/01/20 09:20 Dose: 100 mg Documented by: Intake & Output 08/01/20 08/02/20 11:59 11:59 Intake Total 4656 Balance 4656 Weight 76.8 kg Lab Tests 08/01/20 08/01/20 08:20 08:20 WBC 11.8 H RBC 4.22 Hgb 12.3 L Hct 37.7 L MCV 89.3 MCH 29.1 MCHC 32.6 RDW 14.9 H Plt Count 477 H MPV 8.8 Segmented Neutrophils 81 H Band Neutrophils 1 Lymphocytes (Manual) 17 L Monocytes (Manual) 1 Toxic Granulation 1+ Platelet Estimate NORMAL RBC Morphology NORMAL Sodium 135 L Potassium 3.7 Chloride 103 Carbon Dioxide 28 Anion Gap 7.3 BUN 18 Creatinine 0.73 Estimated GFR > 60.0 Glucose 103 Calcium 8.1 L Total Bilirubin 0.80 AST 54 ALT 57 H Alkaline Phosphatase 94 Serum Total Protein 6.5 Albumin 2.7 L Microbiology 07/30/20 14:56 Blood Blood Culture - Preliminary NO GROWTH TO DATE 07/30/20 14:34 Blood Blood Culture - Preliminary NO GROWTH TO DATE Code(s): L03.114 - CELLULITIS OF LEFT UPPER LIMB (2) Cellulitis of left upper extremity Current Visit: Yes Status: Acute Code(s): L03.114 - CELLULITIS OF LEFT UPPER LIMB (3) Swelling of left upper extremity Current Visit: Yes Status: Acute Code(s): M79.89 - OTHER SPECIFIED SOFT TISSUE DISORDERS
[2020-08-02 12:30] LABS: HEPATITIS A IGM Non Reactive (Non Reactive); HEPATITIS B VIRUS CORE TOT AB Reactive (Non Reactive); HEPATITIS C VIRUS ANTIBODY Non Reactive (Non Reactive); Hepatitis B Surface Ab.Quant. 93.86 mIU/mL (0.00-8.49); Hepatitis B Surface Antigen Non Reactive (Non Reactive)
--- NOTE | 2020-08-02 21:12 | PCM.DS ---
Discharge Summary Date of Admission: 07/30/20 16:17 Admitting Physician: HAMILTON WARE DO Primary Care Provider: HAMILTON WARE DO Allergies Allergies Penicillins Allergy (Verified 07/30/20 14:07) Hospital Summary - Hospital Course Hospital Course: Chief Complaint Diagnosis cellulitis upper extremity Allergies Allergy/AdvReac Type Severity Reaction Status Date / Time Penicillins Allergy Verified 07/30/20 14:07 Home Medications Medication Instructions Recorded Confirmed Last Taken Type levoFLOXacin [Levofloxacin] 1 ea BID 07/30/20 07/30/20 07/29/20 History Current Medications Discontinued Medications Generic Name Dose Route Start Last Admin Trade Name Freq PRN Reason Stop Dose Admin Acetaminophen 1,000 mg 07/30/20 17:38 Tylenol Extra Strength 500 Mg PO 08/29/20 17:37 Q4H PRN PRN Pain rating 1-4 Hydrocodone Bitart/Acetaminophen 1 tab 07/30/20 17:37 08/01/20 09:20 [place] 5/325 Mg PO 08/04/20 17:36 1 tab Q4H PRN PRN Administration Pain rating 5-10 Aripiprazole 5 mg 07/31/20 10:00 08/01/20 09:20 Abilify 10 Mg PO 08/30/20 09:59 5 mg DAILY DOUGLAS Administration Diclofenac Sodium 50 mg 07/30/20 22:00 08/01/20 09:21 Voltaren 50 Mg PO 08/29/20 21:59 50 mg BID DOUGLAS Administration Famotidine 20 mg 07/30/20 22:00 08/01/20 09:20 Pepcid 20 Mg Vial IV 08/29/20 21:59 20 mg Q12HT DOUGLAS Administration Meropenem 1 g/ Sodium Chloride 100 mls @ 200 mls/hr 07/30/20 15:02 07/30/20 18:46 IV 07/30/20 15:31 200 mls/hr STAT ONE Administration Clindamycin HCl/Dextrose 900 mg in 50 mls @ 100 mls/hr 07/30/20 15:03 07/30/20 16:01 Clindamycin-D5w 900 Mg/50 Ml IV 07/30/20 15:32 100 ml/hr STAT STA 100 mls/hr Administration Potassium Chloride 20 meq in 100 mls @ 50 mls/hr 07/30/20 15:15 07/30/20 21:08 Potassium Chloride 20 Meq In Water 100ml IV 07/30/20 19:14 50 mls/hr Q2H DOUGLAS Administration Sodium Chloride 1,000 mls @ 999 mls/hr 07/30/20 15:04 07/30/20 16:01 Sodium Chloride 0.9% 1000 Ml IV 07/30/20 16:04 999 mls/hr .Q1H1M STA Administration Clindamycin HCl/Dextrose Confirm 07/30/20 15:56 Clindamycin-D5w 900 Mg/50 Ml Administered 07/30/20 15:57 Dose 900 mg in 50 mls @ ud IV .STK-MED ONE Sodium Chloride Confirm 07/30/20 15:56 Sodium Chloride 0.9% 1000 Ml Administered 07/30/20 15:57 Dose 1,000 mls @ ud .ROUTE .STK-MED ONE Sodium Chloride 1,000 mls @ 100 mls/hr 07/30/20 16:32 08/01/20 07:53 Sodium Chloride 0.9% 1000 Ml IV 08/29/20 16:31 100 mls/hr .Q10H DOUGLAS Administration Clindamycin HCl/Dextrose 600 mg in 50 mls @ 100 mls/hr 07/30/20 22:00 08/01/20 14:03 Clindamycin-D5w 600 Mg/50 Ml IV 08/29/20 21:59 Not Given Q8HT DOUGLAS Meropenem 500 mg/ Sodium 100 mls @ 200 mls/hr 07/30/20 22:00 07/31/20 07:21 Chloride IV 08/29/20 21:59 Not Given Q8HT DOUGLAS Sodium Chloride Confirm 07/30/20 17:51 Sodium Chloride 0.9% 100 Ml Ivpb Administered 07/30/20 17:52 Dose 100 mls @ ud IV .STK-MED ONE Sodium Chloride Confirm 07/30/20 20:29 Sodium Chloride 100ml Mini-Bag Plus Administered 07/30/20 20:30 Dose 100 mls @ ud IV .STK-MED ONE Meropenem 500 mg/ Sodium 100 mls @ 200 mls/hr 07/31/20 10:00 08/01/20 10:08 Chloride IV 08/30/20 09:59 200 mls/hr Q8H DOUGLAS Administration Ketorolac Tromethamine 30 mg 07/30/20 14:11 07/30/20 14:22 Toradol 30 Mg Injection IM 07/30/20 14:12 30 mg STAT ONE Administration Ketorolac Tromethamine Confirm 07/30/20 14:17 Toradol 30 Mg Injection Administered 07/30/20 14:18 Dose 30 mg .ROUTE .STK-MED ONE Ketorolac Tromethamine 30 mg 07/30/20 16:32 08/01/20 09:20 Toradol 30 Mg Injection IV 08/04/20 16:31 30 mg Q6H PRN PRN Administration PAIN Meropenem Confirm 07/30/20 17:50 Merrem 1 Gm Administered 07/30/20 17:51 Dose 1 g IV .STK-MED ONE Meropenem Confirm 07/30/20 20:27 Merrem 500mg Administered 07/30/20 20:28 Dose 500 mg IV .STK-MED ONE Ondansetron HCl 4 mg 07/30/20 16:32 Zofran 4 Mg/2 Ml Vial IV 08/29/20 16:31 Q6H PRN PRN NAUSEA/VOMITING Pantoprazole Sodium 40 mg 07/31/20 17:43 08/01/20 09:20 Protonix 40mg Tablet PO 08/30/20 17:42 40 mg DAILY DOUGLAS Administration Potassium Bicarbonate 50 meq 07/30/20 15:04 07/30/20 16:01 K-Lyte 25 Meq PO 07/30/20 15:05 50 meq STAT ONE Administration Potassium Bicarbonate Confirm 07/30/20 15:56 K-Lyte 25 Meq Administered 07/30/20 15:57 Dose 50 meq .ROUTE .STK-MED ONE Potassium Chloride 20 meq 07/31/20 11:43 07/31/20 13:22 Klor Con 10 Meq PO 07/31/20 11:44 20 meq STAT ONE Administration Potassium Chloride 20 meq 07/31/20 22:00 08/01/20 09:20 Klor Con 10 Meq PO 08/03/20 04:00 20 meq BID DOUGLAS Administration Sertraline HCl 100 mg 07/31/20 17:44 08/01/20 09:20 Zoloft 50 Mg Tablet PO 10/13/20 17:43 100 mg DAILY DOUGLAS Administration Intake & Output (Last 24 hours) 07/31/20 08/01/20 08/02/20 08/03/20 11:59 11:59 11:59 11:59 Intake Total 2970 4656 Balance 2970 4656 Weight 75.1 kg 76.8 kg Laboratory Results (Last 24 hours) 07/31/20 03:08 Hepatitis A IgM Ab Non Reactive Hep Bs Antigen Non Reactive Hep Bs Antibody, Quant 93.86 H Hep B Core Total Ab Reactive H Hepatitis C Antibody Non Reactive - Vitals & Intake/Output Vital Signs: Vital Signs Temperature 98.4 F 08/01/20 07:41 Pulse Rate 81 08/01/20 07:41 Respiratory Rate 20 08/01/20 07:41 Blood Pressure 120/70 08/01/20 07:41 O2 Sat by Pulse Oximetry 97 08/01/20 07:41 Intake & Output: Intake & Output 07/31/20 08/01/20 08/02/20 08/03/20 11:59 11:59 11:59 11:59 Intake Total 2970 4656 Balance 2970 4656 Weight 75.1 kg 76.8 kg - Lab Result Diagrams: 08/01/20 08:20 08/01/20 08:20 Lab Results-Last 24 Hrs: Lab Results-Last 24 Hours 07/31/20 Range/Units 03:08 Hepatitis A IgM Ab Non Reactive (Non Reactive) Hep Bs Antigen Non Reactive (Non Reactive) Hep Bs Antibody, Quant 93.86 H (0.00-8.49) mIU/mL Hep B Core Total Ab Reactive H (Non Reactive) Hepatitis C Antibody Non Reactive (Non Reactive) Micro Results-Entire Visit: Microbiology 07/30/20 14:56 Blood Culture - Preliminary Blood NO GROWTH TO DATE 07/30/20 14:34 Blood Culture - Preliminary Blood NO GROWTH TO DATE - Procedures and Test Procedures and Tests throughout Hospitalization: Therapy Orders & Screens 07/30/20 16:57 OT Screen per Nursing Assess ONCE Comment: Protocol Order Physician Instructions: Greater than 3 points order OT Admission Screening Reason For Exam: Triggered on Admission Diagnosis: cellulitis upper extremity Open Wound/Cellutlitis/Pressure Ulcers: Yes Acute Fx/ORIF/Change in wt bearing status: No Severe MUSCULOSKELETAL pain: Yes ADL Dysfunction: Yes Acute CVA w/Hemiparesis/Hemiplegia: No Decreased Functional Mobility/Strength: No Sprain/Strain: No Acute Post-op Mobility Dysfunction: No Total Points: 13 PT Screen per Nursing Assess ONCE Comment: Protocol Order Physician Instructions: Greater than 3 points order PT Admission Screenin Reason For Exam: Triggered on Admission Diagnosis: cellulitis upper extremity Open Wound/Cellutlitis/Pressure Ulcers: Yes Acute Fx/ORIF/Change in wt bearing status: No Severe MUSCULOSKELETAL pain: Yes ADL Dysfunction: Yes Acute CVA w/Hemiparesis/Hemiplegia: No Decreased Functional Mobility/Strength: No Sprain/Strain: No Acute Post-op Mobility Dysfunction: No Total Points: 13 Smoking Cessation Education ONCE Comment: Diagnosis: cellulitis upper extremity Smoking Status: Current every day smoker How long have you smoked: 8 years Have you smoked in the past 12 months: Yes Approximately how many cigarettes per day: 10 Do you dip or chew tobacco: No Discharge Exam General Appearance: no apparent distress, alert Neurologic Exam: alert, oriented x 3, cooperative, normal mood/affect, nml cerebellar function, sensation nml, No motor deficits Eye Exam: PERRL, EOMI, eyes nml inspection Ears, Nose, Throat Exam: normal ENT inspection, pharynx normal, moist mucous membranes Neck Exam: normal inspection, non-tender, supple, full range of motion Respiratory Exam: normal breath sounds, lungs clear, No respiratory distress Cardiovascular Exam: regular rate/rhythm, normal heart sounds Gastrointestinal/Abdomen Exam: soft, No tenderness, No mass Male Genitalia Exam: deferred Rectal Exam: deferred Back Exam: normal inspection, normal range of motion, No CVA tenderness, No vertebral tenderness Extremity Exam: normal inspection, normal range of motion Skin Exam: normal color, warm, dry Final Diagnosis/Problem List - Final Discharge Diagnosis/Problem (1) Cellulitis of left upper extremity Status: Acute Assessment & Plan: patient signed AMA Code(s): L03.114 - CELLULITIS OF LEFT UPPER LIMB (2) Cellulitis of left upper extremity Status: Acute Code(s): L03.114 - CELLULITIS OF LEFT UPPER LIMB (3) Swelling of left upper extremity Status: Acute Code(s): M79.89 - OTHER SPECIFIED SOFT TISSUE DISORDERS - Discharge Discharge Date: 08/01/20 Disposition: Against Medical Advice Condition: Stable Prescriptions: No Action Sertraline HCl [Zoloft] 100 mg PO 1600 PANTOPRAZOLE 40 mg Tablet [Protonix 40MG Tablet] 40 mg PO 1600 Aripiprazole 10 mg [Abilify 10 MG] 5 mg PO DAILY #30 tablet Diclofenac Sodium 1 tab PO BID levoFLOXacin [Levofloxacin] 1 ea BID Instructions: Cellulitis (Skin Infection), Adult (DC) Additional Instructions: FOLLOW UP WITH INFECTIOUS DISEASE PHYSICIAN. Follow up with: EDA NOLASCO MD [ACTIVE STAFF] - 1 Week
== END 2020-08-01 14:15 | disposition left against medical advice (07) ==
LOC: ED 13:48 → MED SURG 16:17
PROVIDERS: ADMIT Family Medicine; ATTEND General Practice
DX: L03.114 Cellulitis of left upper limb (principal); M25.512 Pain in left shoulder; E87.6 Hypokalemia
CPT/HCPCS: 36000; 36415; 80053; 80074; 83605; 85025; 87040; 93268; 96365; 96372; 99285; G0378; J1885; J3480; A9270-GY

== ENCOUNTER 2022-02-19 15:36 | Observation (INO) | payer OTHER ==
[2022-02-19] MEDS ORDERED: VANCOMYCIN 1 GRAM/200 ML BAG 1 GM/200 ML PIGGYBACK IV ONE (16:44)
[2022-02-19] MEDS ORDERED: Sodium Chloride 0.9% 1000 ML 1,000 ML IV SCH (16:45)
[2022-02-19] MEDS ORDERED: CLINDAMYCIN-D5W 900 MG/50 ML*** 900 MG/50 ML BAG IV STA (16:45)
--- NOTE | 2022-02-19 16:58 | ERPHSYRPT ---
- History of Present Illness Time Seen by Provider: 02/19/22 15:55 Source: patient Exam Limitations: no limitations Patient Subjective Stated Complaint: Abscess to left forearm Triage Nursing Assessment: Patient ambulated back to ED and transferred self to bed. Patient A+O x3. Patient's skin pink, warm and dry. Patient complains of abscess to left forearm that appeared 4 days ago. Patient complains of constant sharp pain 9/10. Left forearm noted to be red, swollen and warm with hard area in the middle of redness. Physician History: Patient is a 26-year-old male presents to emergency department for evaluation of cellulitis and pain to his left forearm. Cellulitis was first observed 4 days ago. Patient states symptoms gotten progressively worse. Pain described as an ache that is localized. No radiation. There is a lesion at the ulnar aspect of mid forearm. There is an area of induration and circumferential cellulitis that extends just proximal to the wrist and distal to the forearm flexor crease. No trauma. No fever. Patient voiced that he has a history of cellulitis to his back. 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 Patient does not recall any trauma to this particular area. Patient states his tetanus is up-to-date. No fever. No nausea or vomiting. No diarrhea. No rash. Patient voices no other complaints or concerns at this time. Timing/Duration: day(s) (4 days) Severity: moderate Modifying Factors: Improves With: nothing Associated Symptoms: denies symptoms Allergies/Adverse Reactions: Penicillins Allergy (Verified 02/19/22 15:45) Home Medications: PANTOPRAZOLE 40 mg Tablet [Protonix 40MG Tablet] 40 mg PO 1600 09/28/19 [History] Sertraline HCl [Zoloft] 100 mg PO 1600 09/28/19 [History] Hx Tetanus, Diphtheria Vaccination/Date Given: No Hx Influenza Vaccination/Date Given: No Hx Pneumococcal Vaccination/Date Given: No Immunizations Up to Date: Yes Travel Risk - International Travel Have you traveled outside of the country in past 3 weeks: No - Coronavirus Screening Are you exhibiting any of the following symptoms?: No Close contact with a COVID-19 positive Pt in past 14-21 Days: No - Vaccine Status Have you recieved a Covid-19 vaccination: No - Review of Systems Constitutional: No Symptoms, No Fever, No Chills Eyes: No Symptoms Ears, Nose, & Throat: No Symptoms Respiratory: No Symptoms, No Cough, No Dyspnea Cardiac: No Symptoms, No Chest Pain, No Edema, No Syncope Abdominal/Gastrointestinal: No Symptoms, No Abdominal Pain, No Nausea, No Vomiting, No Diarrhea Genitourinary Symptoms: No Symptoms, No Dysuria Musculoskeletal: No Symptoms, No Back Pain, No Neck Pain Skin: No Symptoms, No Rash Neurological: No Symptoms, No Dizziness, No Focal Weakness, No Sensory Changes Psychological: No Symptoms Endocrine: No Symptoms Hematologic/Lymphatic: No Symptoms Immunological/Allergic: No Symptoms All Other Systems: Reviewed and Negative - Past Medical History Pertinent Past Medical History: Yes Neurological History: Migraines ENT History: No Pertinent History Cardiac History: No Pertinent History Respiratory History: No Pertinent History Endocrine Medical History: No Pertinent History Musculoskeletal History: Other GI Medical History: GERD History: No Pertinent History Psycho-Social History: Depression Male Reproductive Disorders: No Pertinent History Other Medical History: heart murmur; cellulitis bilat hands - Past Surgical History Past Surgical History: Yes Neuro Surgical History: No Pertinent History Cardiac: No Pertinent History Respiratory: No Pertinent History Gastrointestinal: No Pertinent History Genitourinary: No Pertinent History Musculoskeletal: Orthopedic Surgery Male Surgical History: No Pertinent History Other Surgical History: finger x2 - Social History Smoking Status: Current every day smoker How long have you smoked: 8 years Exposure to second hand smoke: Yes Drug Use: none Patient Lives Alone: No - Nursing Vital Signs Nursing Vital Signs: Initial Vital Signs Temperature 97.7 F 02/19/22 15:46 Pulse Rate 104 H 02/19/22 15:46 Respiratory Rate 18 02/19/22 15:46 Blood Pressure 115/85 02/19/22 15:46 O2 Sat by Pulse Oximetry 99 02/19/22 15:46 Pain Scale Pain Intensity 9 - Physical Exam General Appearance: no apparent distress, alert Eye Exam: PERRL/EOMI, eyes nml inspection Ears, Nose, Throat Exam: normal ENT inspection, TMs normal, pharynx normal, moist mucous membranes Neck Exam: normal inspection, non-tender, supple, full range of motion Respiratory Exam: normal breath sounds, lungs clear, airway intact, No respiratory distress Cardiovascular Exam: regular rate/rhythm, normal heart sounds, normal peripheral pulses Gastrointestinal/Abdomen Exam: soft, normal bowel sounds, No tenderness, No mass Back Exam: normal inspection, normal range of motion, No CVA tenderness, No vertebral tenderness Extremity Exam: normal inspection, normal range of motion, pelvis stable, inflammation (Area of cellulitis is circumferential around the entire forearm from the area proximal to the wrist flexor crease to just distal to the elbow.), other (Left upper extremity area of induration with cellulitis. Ultrasound does not reveal an organized/drainable abscess.) Neurologic Exam: alert, oriented x 3, cooperative, normal mood/affect, nml cerebellar function, nml station & gait, sensation nml, No motor deficits Skin Exam: normal color, warm, dry, No rash Lymphatic Exam: No adenopathy SpO2 Interpretation: normal SpO2: 99 O2 Delivery: Room Air - Course Nursing assessment & vital signs reviewed: Yes - Radiology Exams Forearm X-ray Interpretation: Teleradiologist Report (No bony articular soft tissue abnormalities) - Radiology Ultrasound Exam Other Ultrasound: discussed w/radiologist (Nonvascular ultrasound left upper extremity shows no organized abscess formation. No drainable abscess or fluid collection observed) Ordered Tests: Active Orders 24 hr Category Date Time Status Pressurizer STAT Care 02/19/22 16:41 Active IV Insertion STAT Care 02/19/22 16:41 Active Pulse Oximetry (ED) STAT Care 02/19/22 16:41 Active EXTREMITY NON VASCULAR [US] Stat Exams 02/19/22 16:37 Completed FOREARM Stat Exams 02/19/22 17:09 Completed BLOOD CULTURE Stat Lab 02/19/22 16:41 Received CBC W DIFF Stat Lab 02/19/22 17:30 Completed CMP Stat Lab 02/19/22 17:30 Completed CULTURE,WOUND Stat Lab 02/19/22 18:16 Ordered Lactic Acid Stat Lab 02/19/22 16:41 Completed UA W/RFX UR CULTURE Stat Lab 02/19/22 16:41 Ordered Medication Summary Generic Name Dose Route Start Last Admin Trade Name Freq PRN Reason Stop Dose Admin Sodium Chloride 1,000 mls @ 100 mls/hr 02/19/22 16:45 Sodium Chloride 0.9% 1000 Ml IV 03/21/22 16:44 .Q10H DOUGLAS Linezolid 600 mg 02/19/22 22:00 Linezolid 600 Mg Tablet PO 03/21/22 21:59 BID DOUGLAS Discontinued Medications Generic Name Dose Route Start Last Admin Trade Name Freq PRN Reason Stop Dose Admin Vancomycin HCl 1 gm in 200 mls @ 125 mls/hr 02/19/22 16:44 Vancomycin 1 Gram/200 Ml Bag IV 02/19/22 18:19 STAT ONE Clindamycin HCl/Dextrose 900 mg in 50 mls @ 100 mls/hr 02/19/22 16:45 Clindamycin-D5w 900 Mg/50 Ml IV 02/19/22 17:14 STAT STA Linezolid 600 mg 02/19/22 19:04 02/19/22 19:05 Linezolid 600 Mg Tablet PO 02/19/22 19:05 600 mg NOW ONE Administration Morphine Sulfate 4 mg 02/19/22 19:10 Morphine Sulfate 4 Mg/Ml Injection IV 02/19/22 19:11 STAT ONE Morphine Sulfate Confirm 02/19/22 19:15 Morphine Sulfate 4 Mg/Ml Injection Administered 02/19/22 19:16 Dose 4 mg .ROUTE .STK-MED ONE Ondansetron HCl 4 mg 02/19/22 19:11 Ondansetron Hcl 4 Mg/2 Ml Vial IV 02/19/22 19:12 STAT ONE Ondansetron HCl Confirm 02/19/22 19:15 Ondansetron Hcl 4 Mg/2 Ml Vial Administered 02/19/22 19:16 Dose 4 mg .ROUTE .STK-MED ONE Lab/Rad Data: Laboratory Result Diagrams 02/19/22 17:30 02/19/22 17:30 Laboratory Results 02/19/22 02/19/22 02/19/22 Range/Units 17:30 17:30 17:30 WBC 11.2 H (4.0-10.5) K/mm3 RBC 4.81 (4.1-5.6) M/mm3 Hgb 14.4 (12.5-18.0) gm/dl Hct 42.3 (42-50) % MCV 87.9 (78-100) fl MCH 29.9 (26-32) pg MCHC 34.0 (32-36) g/dl RDW 13.0 (11.5-14.0) % Plt Count 315 (150-450) K/mm3 MPV 9.7 (7.5-11.0) fl Gran % 64.1 (36.0-66.0) % Eos # (Auto) 0.89 H (0-0.5) Absolute Lymphs (auto) 2.15 (1.0-4.6) Absolute Monos (auto) 0.91 (0.0-1.3) Lymphocytes % 19.1 L (24.0-44.0) % Monocytes % 8.1 (0.0-12.0) % Eosinophils % 7.9 H (0.00-5.0) % Basophils % 0.8 (0.0-0.4) % Absolute Granulocytes 7.20 H (1.4-6.9) Basophils # 0.09 (0-0.4) Sodium 138 (137-145) mmol/L Potassium 4.3 (3.5-5.1) mmol/L Chloride 99 (98-107) mmol/L Carbon Dioxide 29 (22-30) mmol/L Anion Gap 14.0 (5-15) MEQ/L BUN 9 (9-20) mg/dL Creatinine 0.73 (0.66-1.25) mg/dL Estimated GFR > 60.0 ML/MIN Glucose 89 (74-106) mg/dL Lactic Acid (0.4-2.0) Calcium 9.5 (8.4-10.2) mg/dL Total Bilirubin 0.40 (0.2-1.3) mg/dL AST 21 (17-59) U/L ALT 12 (0-50) U/L Alkaline Phosphatase 91 (38-126) U/L Serum Total Protein 7.3 (6.3-8.2) g/dL Albumin 4.2 (3.5-5.0) g/dL Influenza Type A Ag NEGATIVE (NEGATIVE) Influenza Type B Ag NEGATIVE (NEGATIVE) RSV (PCR) NEGATIVE (Negative) SARS-CoV-2 (PCR) NEGATIVE (NEGATIVE) 02/19/22 Range/Units 16:41 WBC (4.0-10.5) K/mm3 RBC (4.1-5.6) M/mm3 Hgb (12.5-18.0) gm/dl Hct (42-50) % MCV (78-100) fl MCH (26-32) pg MCHC (32-36) g/dl RDW (11.5-14.0) % Plt Count (150-450) K/mm3 MPV (7.5-11.0) fl Gran % (36.0-66.0) % Eos # (Auto) (0-0.5) Absolute Lymphs (auto) (1.0-4.6) Absolute Monos (auto) (0.0-1.3) Lymphocytes % (24.0-44.0) % Monocytes % (0.0-12.0) % Eosinophils % (0.00-5.0) % Basophils % (0.0-0.4) % Absolute Granulocytes (1.4-6.9) Basophils # (0-0.4) Sodium (137-145) mmol/L Potassium (3.5-5.1) mmol/L Chloride (98-107) mmol/L Carbon Dioxide (22-30) mmol/L Anion Gap (5-15) MEQ/L BUN (9-20) mg/dL Creatinine (0.66-1.25) mg/dL Estimated GFR ML/MIN Glucose (74-106) mg/dL Lactic Acid 0.5 (0.4-2.0) Calcium (8.4-10.2) mg/dL Total Bilirubin (0.2-1.3) mg/dL AST (17-59) U/L ALT (0-50) U/L Alkaline Phosphatase (38-126) U/L Serum Total Protein (6.3-8.2) g/dL Albumin (3.5-5.0) g/dL Influenza Type A Ag (NEGATIVE) Influenza Type B Ag (NEGATIVE) RSV (PCR) (Negative) SARS-CoV-2 (PCR) (NEGATIVE) - Progress Progress: improved Progress Note: Patient reassessed. Pain improved. Ultrasound negative for abscess. X-ray negative for osteomyelitis. No bony abnormalities. There is induration and cellulitis. There is a large enough surface area to justify admission. Tetanus is up-to-date. Patient was difficult to access. Patient will receive linezoli d and clindamycin IM. A PICC team will see patient in the morning and installed a PICC line. Receiving staff on the floor is well aware of our plan at this time. Patient patient agrees to admission at [facility]. He voices no other complaints concerns at this time. Portions of this note were created with voice recognition technology. There may be grammatical, spelling, punctuation or sound alike errors 02/19/22 19:22 Covid test negative 02/19/22 19:[address] Nolasco who accepts admission to observation. 02/19/22 19:23 Discussed with : Alex Will see patient in: hospital (observation) Counseled pt/family regarding: lab results, diagnosis, rad results - Departure Departure Disposition: Observation Clinical Impression: Cellulitis of forearm, left, Leukocytosis, Skin induration Condition: Stable Critical Care Time: No Referrals: EDA NOLASCO MD [Primary Care Provider] - Follow up/PCP as directed
--- NOTE | 2022-02-19 17:00 | XRAY ---
Indication: Abscess. Targeted soft tissue ultrasound left forearm demonstrates mild subcutaneous soft tissue edema. No focal solid/cystic mass or abnormal fluid collection.
--- NOTE | 2022-02-19 17:37 | XRAY ---
Indication: Elbow swelling. Osteomyelitis. Comparison: None 2 view left forearm demonstrates proximal soft tissue swelling medial aspect. No other bony, articular, or soft tissue abnormalities.
[2022-02-19 17:59] LABS: Basophil (Absolute #) 0.09 (0-0.4); Eosinophil % 7.9 % (0.00-5.0); Eosinophil (Absolute #) 0.89 (0-0.5); Hematocrit 42.3 % (42-50); Hemoglobin 14.4 gm/dl (12.5-18.0); Lymphocyte (Absolute #) 2.15 (1.0-4.6); Lymphocytes % 19.1 % (24.0-44.0); Mean Cell Volume 87.9 fl (78-100); Mean Corpuscular Hemoglobin 29.9 pg (26-32); Mean Platelet Volume 9.7 fl (7.5-11.0); Monocyte (Absolute #) 0.91 (0.0-1.3); Monocytes % 8.1 % (0.0-12.0); Neutrophil % 64.1 % (36.0-66.0); Platelet Count 315 K/mm3 (150-450); Red Blood Count 4.81 M/mm3 (4.1-5.6); White Blood Count 11.2 K/mm3 (4.0-10.5)
[2022-02-19 18:13] LABS: ALBUMIN 4.2 g/dL (3.5-5.0); ALKALINE PHOSPHATASE 91 U/L (38-126); BLOOD UREA NITROGEN 9 mg/dL (9-20); CHLORIDE 99 mmol/L (98-107); Calcium 9.5 mg/dL (8.4-10.2); Carbon Dioxide 29 mmol/L (22-30); Creatinine 1 0.73 mg/dL (0.66-1.25); EST GLOMERULAR FILTRATION RATE > 60.0 ML/MIN; Glucose 89 mg/dL (74-106); Potassium 4.3 mmol/L (3.5-5.1); SGOT/AST 21 U/L (17-59); SGPT/ALT 12 U/L (0-50); SODIUM 138 mmol/L (137-145); Total Protein 7.3 g/dL (6.3-8.2)
[2022-02-19 18:40] LABS: INFLUENZA A NEGATIVE (NEGATIVE); INFLUENZA B NEGATIVE (NEGATIVE); RESPIRATORY SYNCTIAL VIRUS NEGATIVE (Negative); SARS-CoV-2 Xpert Express NEGATIVE (NEGATIVE)
[2022-02-19] MEDS ORDERED: ZYVOX PO ONE (19:04)
[2022-02-19] MEDS ORDERED: MORPHINE SULFATE 4 MG INJ IV ONE (19:10)
[2022-02-19] MEDS ORDERED: Zofran 4 MG/2 ML VIAL IV ONE (19:11)
[2022-02-19] MEDS ORDERED: Zofran 4 MG/2 ML VIAL ONE (19:15)
[2022-02-19] MEDS ORDERED: MORPHINE SULFATE 4 MG INJ ONE (19:15)
[2022-02-19] MEDS ORDERED: Cleocin Phosphate IV 600 MG/4 ML ONE (19:36)
[2022-02-19] MEDS ORDERED: Cleocin Phosphate IV 600 MG/4 ML IM ONE (19:47)
[2022-02-19] MEDS ORDERED: Zofran 4 MG/2 ML VIAL IV PRN (19:53)
[2022-02-19] MEDS ORDERED: MORPHINE SULFATE 4 MG INJ IV PRN (19:53)
[2022-02-19] MEDS ORDERED: NORCO 5/325 MG PO PRN (21:27)
[2022-02-19] MEDS ORDERED: ZYVOX PO SCH (22:00)
[2022-02-19] MEDS: ZOLOFT 50 MG TABLET PO SCH (22:51)
[2022-02-19] MEDS: Abilify 10 MG PO SCH (22:52)
[2022-02-19] MEDS: Protonix 40MG Tablet PO SCH (22:53)
[2022-02-20 05:05] LABS: Absolute Neutrophil Ct (ANC) 3.92 (1.4-6.9); Basophil (Absolute #) 0.07 (0-0.4); Eosinophil % 12.1 % (0.00-5.0); Eosinophil (Absolute #) 0.95 (0-0.5); Hemoglobin 15.8 gm/dl (12.5-18.0); Lymphocyte (Absolute #) 2.27 (1.0-4.6); Mean Cell Volume 88.7 fl (78-100); Mean Corpuscular Hemoglobin 29.8 pg (26-32); Mean Corpuscular Hgb Concent. 33.6 g/dl (32-36); Mean Platelet Volume 9.6 fl (7.5-11.0); Monocyte (Absolute #) 0.63 (0.0-1.3); Platelet Count 314 K/mm3 (150-450); Red Cell Distribution Width 13.2 % (11.5-14.0); White Blood Count 7.8 K/mm3 (4.0-10.5)
[2022-02-20 05:30] LABS: ALBUMIN 4.3 g/dL (3.5-5.0); ALKALINE PHOSPHATASE 102 U/L (38-126); ANION GAP 12.8 MEQ/L (5-15); BLOOD UREA NITROGEN 10 mg/dL (9-20); CHLORIDE 101 mmol/L (98-107); Calcium 9.1 mg/dL (8.4-10.2); Carbon Dioxide 28 mmol/L (22-30); Creatinine 1 0.82 mg/dL (0.66-1.25); EST GLOMERULAR FILTRATION RATE > 60.0 ML/MIN; Glucose 102 mg/dL (74-106); Potassium 3.8 mmol/L (3.5-5.1); SGOT/AST 41 U/L (17-59); SGPT/ALT 15 U/L (0-50); SODIUM 138 mmol/L (137-145); Total Protein 7.9 g/dL (6.3-8.2)
[2022-02-20] MEDS: ZOLOFT 50 MG TABLET PO SCH (09:28)
[2022-02-20] MEDS: Protonix 40MG Tablet PO SCH (09:29)
[2022-02-20] MEDS: Abilify 10 MG PO SCH (09:29)
[2022-02-20] MEDS ORDERED: CLINDAMYCIN-D5W 900 MG/50 ML*** 900 MG/50 ML BAG IV SCH (10:00)
[2022-02-20] MEDS ORDERED: VANCOMYCIN 1 GRAM/200 ML BAG 1 GM/200 ML PIGGYBACK IV SCH (10:00)
[2022-02-20 10:37] LABS: Mucus MANY /HPF (NEGATIVE); WBC 0-2 /HPF (0-5)
[2022-02-20] MEDS ORDERED: Xylocaine-Mpf 2% 5 Ml Vial ONE (10:45)
[2022-02-20 12:38] VITALS: BP 105/59; PULSE 60; O2SAT 94
[2022-02-20 12:40] LABS: Appearance SLIGHTLY CLOUDY (CLEAR); Bilirubin NEGATIVE (NEGATIVE); Glucose NEGATIVE (NEGATIVE); Ketones NEGATIVE (NEGATIVE); Protein,Urine Dip NEGATIVE (Negative); RBC NEGATIVE Ery/ul (0-5); Specific Gravity 1.025 (1.005-1.025); Urobilinogen 2 mg/dL (0-1)
[2022-02-20 12:41] LABS: Nitrite NEGATIVE (NEGATIVE); Urine Cultured Indicated? NO
--- NOTE | 2022-02-20 13:13 | PCM.HP ---
History of Present Illness - Chief Complaint Chief Complaint: redness om left arm for 2 days History of Present Illness: is a 26 year old male.presents to emergency department for evaluation of cellulitis and pain to his left forearm. Cellulitis was first observed 4 days ago. Patient states symptoms gotten progressively worse. Pain described as an ache that is localized. No radiation. There is a lesion at the ulnar aspect of mid forearm. There is an area of induration and circumferential cellulitis that extends just proximal to the wrist and distal to the forearm flexor crease. No trauma. No fever. Patient voiced that he has a history of cellulitis to his back. 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 Patient does not recall any trauma to this particular area. Patient states his tetanus is up-to-date. No fever. No nausea or vomiting. No diarrhea. No rash. Patient voices no other complaints or concerns at this time. - Review of Systems Constitutional: No Fever, No Chills Eyes: No Symptoms Ears, Nose, & Throat: No Symptoms Respiratory: No Cough, No Short Of Breath Cardiac: No Chest Pain, No Edema, No Syncope Abdominal/Gastrointestinal: No Abdominal Pain, No Nausea, No Vomiting, No Diarrhea Genitourinary Symptoms: No Dysuria Musculoskeletal: No Back Pain, No Neck Pain Skin: Cellulitis (left arm), Induration, No Rash Neurological: No Dizziness, No Focal Weakness, No Sensory Changes Psychological: No Symptoms Endocrine: No Symptoms Hematologic/Lymphatic: No Symptoms Immunological/Allergic: No Symptoms Medications & Allergies Home Medications: Home Medication List PANTOPRAZOLE 40 mg Tablet [Protonix 40MG Tablet] 40 mg PO 1600 09/28/19 [History Confirmed 02/19/22] Sertraline HCl [Zoloft] 100 mg PO 1600 09/28/19 [History Confirmed 02/19/22] Aripiprazole 10 mg [Abilify 10 MG] 5 mg PO DAILY #30 tablet 12/26/19 [Rx Confirmed 02/19/22] Allergies/Adverse Reactions: Allergies Allergy/AdvReac Type Severity Reaction Status Date / Time Penicillins Allergy Verified 02/19/22 15:45 - Past Medical History Past Medical History: Yes Neurological History: Migraines ENT History: No Pertinent History Cardiac History: No Pertinent History Respiratory History: No Pertinent History Endocrine Medical History: No Pertinent History Musculoskelatal History: Other GI Medical History: GERD History: No Pertinent History Pyscho-Social History: Depression Male Reproductive Disorders: No Pertinent History Comment: heart murmur; cellulitis bilat hands - Past Surgical History Past Surgical History: Yes Neuro Surgical History: No Pertinent History Cardiac History: No Pertinent History Respiratory Surgery: No Pertinent History GI Surgical History: No Pertinent History Genitourinary Surgical Hx: No Pertinent History Musculskeletal Surgical Hx: Orthopedic Surgery Male Surgical History: No Pertinent History Other Surgical History: finger x2 - Social History Smoking Status: Current every day smoker How long have you smoked: 8 years Exposure to second hand smoke: Yes Alcohol: None Drug Use: none - Physical Exam Vital Signs: Vital Signs - 24 hr Temp Pulse Resp BP Pulse Ox 02/20/22 12:00 98.0 F 60 12 105/59 94 L 02/20/22 08:00 97.7 F 56 L 16 99/56 95 02/20/22 04:10 97.3 F 59 L 16 100/60 97 02/19/22 20:00 97.8 F 62 18 115/78 98 02/19/22 19:56 97.8 F 62 18 115/78 98 02/19/22 19:25 99 02/19/22 18:37 20 02/19/22 18:17 98 02/19/22 17:37 129/73 98 02/19/22 15:46 97.7 F 104 H 18 115/85 99 General Appearance: no apparent distress, alert Neurologic Exam: alert, oriented x 3, cooperative, normal mood/affect, nml cere bellar function, nml station & gait, sensation nml, No motor deficits Eye Exam: PERRL/EOMI, eyes nml inspection Ears, Nose, Throat Exam: normal ENT inspection, TMs normal, pharynx normal, moist mucous membranes Neck Exam: normal inspection, non-tender, supple, full range of motion Respiratory Exam: normal breath sounds, lungs clear, No respiratory distress Cardiovascular Exam: regular rate/rhythm, normal heart sounds, normal peripheral pulses Gastrointestinal/Abdomen Exam: soft, normal bowel sounds, No tenderness, No mass Back Exam: normal inspection, normal range of motion, No CVA tenderness, No vertebral tenderness Extremity Exam: normal inspection, normal range of motion, pelvis stable Skin Exam: normal color, warm, dry, other (redness and erythema on left forea rm), No rash Wound Assessment: Skin/Wound Assessment Wound/Incision Assessment Start: 02/19/22 19:55 Text: Status: Active Freq: Q6H Protocol: Document 02/20/22 07:46 RN (Rec: 02/20/22 07:58 RN [id number]) Wound/Incision Assessment Left Forearm Wound Assessment Shift Assessment Wound Type cellulitis Wound Stage Non Pressure Wound Drainage Amount None General Appearance Open to air Surrounding Tissue [place],Edematous Wound Photo Photo Taken No Lymphatic Exam: No adenopathy Results - Labs Lab/Micro Results: Lab Results-Last 24 Hours 02/19/22 02/19/22 02/19/22 Range/Units 16:41 17:30 17:30 WBC 11.2 H (4.0-10.5) K/mm3 RBC 4.81 (4.1-5.6) M/mm3 Hgb 14.4 (12.5-18.0) gm/dl Hct 42.3 (42-50) % MCV 87.9 (78-100) fl MCH 29.9 (26-32) pg MCHC 34.0 (32-36) g/dl RDW 13.0 (11.5-14.0) % Plt Count 315 (150-450) K/mm3 MPV 9.7 (7.5-11.0) fl Gran % 64.1 (36.0-66.0) % Eos # (Auto) 0.89 H (0-0.5) Absolute Lymphs (auto) 2.15 (1.0-4.6) Absolute Monos (auto) 0.91 (0.0-1.3) Lymphocytes % 19.1 L (24.0-44.0) % Monocytes % 8.1 (0.0-12.0) % Eosinophils % 7.9 H (0.00-5.0) % Basophils % 0.8 (0.0-0.4) % Absolute Granulocytes 7.20 H (1.4-6.9) Basophils # 0.09 (0-0.4) Sodium 138 (137-145) mmol/L Potassium 4.3 (3.5-5.1) mmol/L Chloride 99 (98-107) mmol/L Carbon Dioxide 29 (22-30) mmol/L Anion Gap 14.0 (5-15) MEQ/L BUN 9 (9-20) mg/dL Creatinine 0.73 (0.66-1.25) mg/dL Estimated GFR > 60.0 ML/MIN Glucose 89 (74-106) mg/dL Lactic Acid 0.5 (0.4-2.0) Calcium 9.5 (8.4-10.2) mg/dL Total Bilirubin 0.40 (0.2-1.3) mg/dL AST 21 (17-59) U/L ALT 12 (0-50) U/L Alkaline Phosphatase 91 (38-126) U/L Serum Total Protein 7.3 (6.3-8.2) g/dL Albumin 4.2 (3.5-5.0) g/dL Urinalys Dipstick Clnc Urine Color (YELLOW) Urine Appearance (CLEAR) Urine pH (5-6) Ur Specific Holman (1.005-1.025) POC Urine Protein Conf (Negative) Urine Ketones (NEGATIVE) Urine Nitrite (NEGATIVE) Urine Bilirubin (NEGATIVE) Urine Urobilinogen (0-1) mg/dL Urine Leukocytes (NEGATIVE) Urine WBC (Auto) (0-5) /HPF Urine RBC (Auto) (0-2) /HPF Urine RBC (0-5) Peter/ul Urine Mucus (Auto) (NEGATIVE) /HPF Ur Culture Indicated? Urine Glucose (NEGATIVE) mg/dL Influenza Type A Ag (NEGATIVE) Influenza Type B Ag (NEGATIVE) RSV (PCR) (Negative) SARS-CoV-2 (PCR) (NEGATIVE) 02/19/22 02/20/22 02/20/22 Range/Units 17:30 04:30 04:30 WBC 7.8 (4.0-10.5) K/mm3 RBC 5.30 (4.1-5.6) M/mm3 Hgb 15.8 (12.5-18.0) gm/dl Hct 47.0 (42-50) % MCV 88.7 (78-100) fl MCH 29.8 (26-32) pg MCHC 33.6 (32-36) g/dl RDW 13.2 (11.5-14.0) % Plt Count 314 (150-450) K/mm3 MPV 9.6 (7.5-11.0) fl Gran % 50.0 (36.0-66.0) % Eos # (Auto) 0.95 H (0-0.5) Absolute Lymphs (auto) 2.27 (1.0-4.6) Absolute Monos (auto) 0.63 (0.0-1.3) Lymphocytes % 29.0 (24.0-44.0) % Monocytes % 8.0 (0.0-12.0) % Eosinophils % 12.1 H (0.00-5.0) % Basophils % 0.9 (0.0-0.4) % Absolute Granulocytes 3.92 (1.4-6.9) Basophils # 0.07 (0-0.4) Sodium 138 (137-145) mmol/L Potassium 3.8 (3.5-5.1) mmol/L Chloride 101 (98-107) mmol/L Carbon Dioxide 28 (22-30) mmol/L Anion Gap 12.8 (5-15) MEQ/L BUN 10 (9-20) mg/dL Creatinine 0.82 (0.66-1.25) mg/dL Estimated GFR > 60.0 ML/MIN Glucose 102 (74-106) mg/dL Lactic Acid (0.4-2.0) Calcium 9.1 (8.4-10.2) mg/dL Total Bilirubin 0.80 (0.2-1.3) mg/dL AST 41 (17-59) U/L ALT 15 (0-50) U/L Alkaline Phosphatase 102 (38-126) U/L Serum Total Protein 7.9 (6.3-8.2) g/dL Albumin 4.3 (3.5-5.0) g/dL Urinalys Dipstick Clnc Urine Color (YELLOW) Urine Appearance (CLEAR) Urine pH (5-6) Ur Specific Holman (1.005-1.025) POC Urine Protein Conf (Negative) Urine Ketones (NEGATIVE) Urine Nitrite (NEGATIVE) Urine Bilirubin (NEGATIVE) Urine Urobilinogen (0-1) mg/dL Urine Leukocytes (NEGATIVE) Urine WBC (Auto) (0-5) /HPF Urine RBC (Auto) (0-2) /HPF Urine RBC (0-5) Peter/ul Urine Mucus (Auto) (NEGATIVE) /HPF Ur Culture Indicated? Urine Glucose (NEGATIVE) mg/dL Influenza Type A Ag NEGATIVE (NEGATIVE) Influenza Type B Ag NEGATIVE (NEGATIVE) RSV (PCR) NEGATIVE (Negative) SARS-CoV-2 (PCR) NEGATIVE (NEGATIVE) 02/20/22 Range/Units 10:20 WBC (4.0-10.5) K/mm3 RBC (4.1-5.6) M/mm3 Hgb (12.5-18.0) gm/dl Hct (42-50) % MCV (78-100) fl MCH (26-32) pg MCHC (32-36) g/dl RDW (11.5-14.0) % Plt Count (150-450) K/mm3 MPV (7.5-11.0) fl Gran % (36.0-66.0) % Eos # (Auto) (0-0.5) Absolute Lymphs (auto) (1.0-4.6) Absolute Monos (auto) (0.0-1.3) Lymphocytes % (24.0-44.0) % Monocytes % (0.0-12.0) % Eosinophils % (0.00-5.0) % Basophils % (0.0-0.4) % Absolute Granulocytes (1.4-6.9) Basophils # (0-0.4) Sodium (137-145) mmol/L Potassium (3.5-5.1) mmol/L Chloride (98-107) mmol/L Carbon Dioxide (22-30) mmol/L Anion Gap (5-15) MEQ/L BUN (9-20) mg/dL Creatinine (0.66-1.25) mg/dL Estimated GFR ML/MIN Glucose (74-106) mg/dL Lactic Acid (0.4-2.0) Calcium (8.4-10.2) mg/dL Total Bilirubin (0.2-1.3) mg/dL AST (17-59) U/L ALT (0-50) U/L Alkaline Phosphatase (38-126) U/L Serum Total Protein (6.3-8.2) g/dL Albumin (3.5-5.0) g/dL Urinalys Dipstick Clnc Pending Urine Color YELLOW (YELLOW) Urine Appearance SLIGHTLY CLOUDY (CLEAR) Urine pH 7.0 (5-6) Ur Specific Holman 1.025 (1.005-1.025) POC Urine Protein Conf NEGATIVE (Negative) Urine Ketones NEGATIVE (NEGATIVE) Urine Nitrite NEGATIVE (NEGATIVE) Urine Bilirubin NEGATIVE (NEGATIVE) Urine Urobilinogen 2 (0-1) mg/dL Urine Leukocytes NEGATIVE (NEGATIVE) Urine WBC (Auto) 0-2 (0-5) /HPF Urine RBC (Auto) NONE (0-2) /HPF Urine RBC NEGATIVE (0-5) Peter/ul Urine Mucus (Auto) MANY (NEGATIVE) /HPF Ur Culture Indicated? NO Urine Glucose NEGATIVE (NEGATIVE) mg/dL Influenza Type A Ag (NEGATIVE) Influenza Type B Ag (NEGATIVE) RSV (PCR) (Negative) SARS-CoV-2 (PCR) (NEGATIVE) - Radiology Impressions Radiology Exams & Impressions: Radiology Procedures Category Date Time Status EXTREMITY NON VASCULAR [US] Stat Exams 02/19/22 16:37 Completed FOREARM Stat Exams 02/19/22 17:09 Completed Assessment/Plan (1) Cellulitis of forearm, left Current Visit: Yes Status: Acute Assessment & Plan: Chief Complaint Diagnosis redness om left arm for 2 days Allergies Allergy/AdvReac Type Severity Reaction Status Date / Time Penicillins Allergy Verified 02/19/22 15:45 Vital Signs (Last 24 hours) Temp Pulse Resp BP Pulse Ox 02/20/22 12:00 98.0 F 60 12 105/59 94 L 02/20/22 08:00 97.7 F 56 L 16 99/56 95 02/20/22 04:10 97.3 F 59 L 16 100/60 97 02/19/22 20:00 97.8 F 62 18 115/78 98 02/19/22 19:56 97.8 F 62 18 115/78 98 02/19/22 19:25 99 02/19/22 18:37 20 02/19/22 18:17 98 02/19/22 17:37 129/73 98 02/19/22 15:46 97.7 F 104 H 18 115/85 99 Current Medications Generic Name Dose Route Start Last Admin Trade Name Freq PRN Reason Stop Dose Admin Hydrocodone Bitart/Acetaminophen 1 tab 02/19/22 21:27 02/19/22 22:51 Hydrocodone/Apap 5/325 Mg Tablet PO 02/24/22 21:26 1 tab Q4H PRN PRN Administration PAIN Aripiprazole 5 mg 02/19/22 22:00 02/20/22 09:29 Aripiprazole 10 Mg Tablet PO 03/21/22 21:59 5 mg DAILY DOUGLAS Administration Vancomycin HCl 1 gm in 200 mls @ 125 mls/hr 02/20/22 10:00 02/20/22 10:55 Vancomycin 1 Gram/200 Ml Bag IV 03/22/22 09:59 125 mls/hr Q24H DOUGLAS Administration Clindamycin HCl/Dextrose 900 mg in 50 mls @ 100 mls/hr 02/20/22 10:00 02/20/22 09:28 Clindamycin-D5w 900 Mg/50 Ml IV 03/22/22 09:59 100 mls/hr Q24H DOUGLAS Administration Linezolid 600 mg 02/19/22 22:00 02/19/22 20:42 Linezolid 600 Mg Tablet PO 03/21/22 21:59 Not Given BID DOUGLAS Morphine Sulfate 4 mg 02/19/22 19:53 Morphine Sulfate 4 Mg/Ml Injection IV 02/24/22 19:52 Q4H PRN PRN PAIN Ondansetron HCl 4 mg 02/19/22 19:53 Ondansetron Hcl 4 Mg/2 Ml Vial IV 03/21/22 19:52 Q6H PRN PRN NAUSEA/VOMITING Pantoprazole Sodium 40 mg 02/19/22 22:00 02/20/22 09:29 Protonix (Pantoprazole) 40 Mg Tablet PO 03/21/22 21:59 40 mg DAILY DOUGLAS Administration Discontinued Medications Generic Name Dose Route Start Last Admin Trade Name Freq PRN Reason Stop Dose Admin Clindamycin Phosphate Confirm 02/19/22 19:36 Clindamycin Phosphate 600 Mg/4 Ml Vial Administered 02/19/22 19:37 Dose 1,200 mg .ROUTE .STK-MED ONE Clindamycin Phosphate 900 mg 02/19/22 19:47 02/19/22 19:48 Clindamycin Phosphate 600 Mg/4 Ml Vial IM 02/19/22 19:48 900 mg NOW ONE Administration Sodium Chloride 1,000 mls @ 100 mls/hr 02/19/22 16:45 02/19/22 19:31 Sodium Chloride 0.9% 1000 Ml IV 03/21/22 16:44 Not Given .Q10H DOUGLAS Vancomycin HCl 1 gm in 200 mls @ 125 mls/hr 02/19/22 16:44 02/19/22 19:46 Vancomycin 1 Gram/200 Ml Bag IV 02/19/22 18:19 Not Given STAT ONE Clindamycin HCl/Dextrose 900 mg in 50 mls @ 100 mls/hr 02/19/22 16:45 02/19/22 19:46 Clindamycin-D5w 900 Mg/50 Ml IV 02/19/22 17:14 Not Given STAT STA Lidocaine HCl Confirm 02/20/22 10:45 Lidocaine - Mpf 2% 5 Ml Vial Administered 02/20/22 10:46 Dose 5 ml .ROUTE .STK-MED ONE Linezolid 600 mg 02/19/22 19:04 02/19/22 19:05 Linezolid 600 Mg Tablet PO 02/19/22 19:05 600 mg NOW ONE Administration Morphine Sulfate 4 mg 02/19/22 19:10 02/19/22 19:29 Morphine Sulfate 4 Mg/Ml Injection IV 02/19/22 19:11 4 mg STAT ONE Administration Morphine Sulfate Confirm 02/19/22 19:15 Morphine Sulfate 4 Mg/Ml Injection Administered 02/19/22 19:16 Dose 4 mg .ROUTE .STK-MED ONE Ondansetron HCl 4 mg 02/19/22 19:11 02/19/22 19:45 Ondansetron Hcl 4 Mg/2 Ml Vial IV 02/19/22 19:12 Not Given STAT ONE Ondansetron HCl Confirm 02/19/22 19:15 Ondansetron Hcl 4 Mg/2 Ml Vial Administered 02/19/22 19:16 Dose 4 mg .ROUTE .STK-MED ONE Sertraline HCl 100 mg 02/19/22 22:00 02/20/22 09:28 Sertraline Hcl 50 Mg Tab PO 03/21/22 21:59 100 mg DAILY DOUGLAS Administration Intake & Output (Last 24 hours) 02/18/22 02/19/22 02/20/22 02/21/22 11:59 11:59 11:59 11:59 Intake Total 300 Balance 300 Weight 75.2 kg Microbiology Results (Last 24 hours) 02/19/22 18:16 Arm - Left Upper Wound Culture - Pending 02/19/22 17:30 Blood Blood Culture Gram Stain - Pending 02/19/22 17:30 Blood Blood Culture - Pending Laboratory Results (Last 24 hours) 02/20/22 02/20/22 02/20/22 10:20 04:30 04:30 WBC 7.8 RBC 5.30 Hgb 15.8 Hct 47.0 MCV 88.7 MCH 29.8 MCHC 33.6 RDW 13.2 Plt Count 314 MPV 9.6 Gran % 50.0 Eos # (Auto) 0.95 H Absolute Lymphs (auto) 2.27 Absolute Monos (auto) 0.63 Lymphocytes % 29.0 Monocytes % 8.0 Eosinophils % 12.1 H Basophils % 0.9 Absolute Granulocytes 3.92 Basophils # 0.07 Sodium 138 Potassium 3.8 Chloride 101 Carbon Dioxide 28 Anion Gap 12.8 BUN 10 Creatinine 0.82 Estimated GFR > 60.0 Glucose 102 Lactic Acid Calcium 9.1 Total Bilirubin 0.80 AST 41 ALT 15 Alkaline Phosphatase 102 Serum Total Protein 7.9 Albumin 4.3 Urine Color YELLOW Urine Appearance SLIGHTLY CLOUDY Urine pH 7.0 Ur Specific Holman 1.025 POC Urine Protein Conf NEGATIVE Urine Ketones NEGATIVE Urine Nitrite NEGATIVE Urine Bilirubin NEGATIVE Urine Urobilinogen 2 Urine Leukocytes NEGATIVE Urine WBC (Auto) 0-2 Urine RBC (Auto) NONE Urine RBC NEGATIVE Urine Mucus (Auto) MANY Ur Culture Indicated? NO Urine Glucose NEGATIVE Influenza Type A Ag Influenza Type B Ag RSV (PCR) SARS-CoV-2 (PCR) 02/19/22 02/19/22 02/19/22 17:30 17:30 17:30 WBC 11.2 H RBC 4.81 Hgb 14.4 Hct 42.3 MCV 87.9 MCH 29.9 MCHC 34.0 RDW 13.0 Plt Count 315 MPV 9.7 Gran % 64.1 Eos # (Auto) 0.89 H Absolute Lymphs (auto) 2.15 Absolute Monos (auto) 0.91 Lymphocytes % 19.1 L Monocytes % 8.1 Eosinophils % 7.9 H Basophils % 0.8 Absolute Granulocytes 7.20 H Basophils # 0.09 Sodium 138 Potassium 4.3 Chloride 99 Carbon Dioxide 29 Anion Gap 14.0 BUN 9 Creatinine 0.73 Estimated GFR > 60.0 Glucose 89 Lactic Acid Calcium 9.5 Total Bilirubin 0.40 AST 21 ALT 12 Alkaline Phosphatase 91 Serum Total Protein 7.3 Albumin 4.2 Urine Color Urine Appearance Urine pH Ur Specific Holman POC Urine Protein Conf Urine Ketones Urine Nitrite Urine Bilirubin Urine Urobilinogen Urine Leukocytes Urine WBC (Auto) Urine RBC (Auto) Urine RBC Urine Mucus (Auto) Ur Culture Indicated? Urine Glucose Influenza Type A Ag NEGATIVE Influenza Type B Ag NEGATIVE RSV (PCR) NEGATIVE SARS-CoV-2 (PCR) NEGATIVE 02/19/22 16:41 WBC RBC Hgb Hct MCV MCH MCHC RDW Plt Count MPV Gran % Eos # (Auto) Absolute Lymphs (auto) Absolute Monos (auto) Lymphocytes % Monocytes % Eosinophils % Basophils % Absolute Granulocytes Basophils # Sodium Potassium Chloride Carbon Dioxide Anion Gap BUN Creatinine Estimated GFR Glucose Lactic Acid 0.5 Calcium Total Bilirubin AST ALT Alkaline Phosphatase Serum Total Protein Albumin Urine Color Urine Appearance Urine pH Ur Specific Holman POC Urine Protein Conf Urine Ketones Urine Nitrite Urine Bilirubin Urine Urobilinogen Urine Leukocytes Urine WBC (Auto) Urine RBC (Auto) Urine RBC Urine Mucus (Auto) Ur Culture Indicated? Urine Glucose Influenza Type A Ag Influenza Type B Ag RSV (PCR) SARS-CoV-2 (PCR) Orders (Last 24 hours) Category Date Time Status Bedrest with BRP/BSC ROUTINE Activity 02/19/22 19:53 Active Teaching Fellow STAT Care 02/19/22 16:41 Completed Code Status Order ROUTINE Care 02/19/22 19:53 Active IV Care Q6H Care 02/19/22 19:53 Active Neuro Checks Q4H Care 02/19/22 19:[address] in Observation ROUTINE Care 02/19/22 19:53 Active Pulse Oximetry (ED) STAT Care 02/19/22 16:41 Completed House Regular Diet Diet 02/20/22 Breakfast Active EXTREMITY NON VASCULAR [US] Stat Exams 02/19/22 16:37 Completed FOREARM Stat Exams 02/19/22 17:09 Completed BLOOD CULTURE Stat Lab 02/19/22 16:41 Received CBC W DIFF AM.LAB Lab 02/20/22 04:30 Completed CBC W DIFF Stat Lab 02/19/22 17:30 Completed CMP AM.LAB Lab 02/20/22 04:30 Completed CMP Stat Lab 02/19/22 17:30 Completed CULTURE,WOUND Stat Lab 02/19/22 18:16 Received Lactic Acid Stat Lab 02/19/22 16:41 Completed UA W/RFX UR CULTURE Stat Lab 02/19/22 16:41 Ordered Aripiprazole 10 mg [Abilify 10 MG] Med 02/19/22 22:00 Active 5 mg PO DAILY Clindamycin 900 mg/D5w 50 ml [Clindamycin-D5w 900 mg/ Med 02/20/22 10:00 Active 50 ml] 900 mg in 50 ml IV Q24H Clindamycin 900 mg/D5w 50 ml [Clindamycin-D5w 900 mg/ Med 02/19/22 16:45 Discontinued 50 ml] 900 mg in 50 ml IV STAT Clindamycin Phos 600 mg/4 ml [Cleocin Phosphate IV Med 02/19/22 19:36 Discontinued 600 MG/4 ML] 1,200 mg .ROUTE .STK-MED ONE Clindamycin Phos 600 mg/4 ml [Cleocin Phosphate IV Med 02/19/22 19:47 Discontinued 600 MG/4 ML] 900 mg IM NOW ONE Hydrocodone/APAP 5/325 [Cidra 5/325 mg] Med 02/19/22 21:27 Active 1 tab PO Q4H PRN PRN Lidocaine HCl 2% Mpf 5 ml [Xylocaine-Mpf 2% 5 Ml Med 02/20/22 10:45 Discontinued Vial] 5 ml .ROUTE .STK-MED ONE Linezolid [Zyvox] Med 02/19/22 22:00 Active 600 mg PO BID Linezolid [Zyvox] Med 02/19/22 19:04 Discontinued 600 mg PO NOW ONE Morphine Sulfate 4 mg Inj Med 02/19/22 19:15 Discontinued 4 mg .ROUTE .STK-MED ONE Morphine Sulfate 4 mg Inj Med 02/19/22 19:53 Active 4 mg IV Q4H PRN PRN Morphine Sulfate 4 mg Inj Med 02/19/22 19:10 Discontinued 4 mg IV STAT ONE NaCl 0.9% 1000 ml [Sodium Chloride 0.9% 1000 ML] 1,000 Med 02/19/22 16:45 Discontinued ml IV 100 mls/hr Ondansetron HCl 4 mg/2 ml [Zofran 4 MG/2 ML VIAL] Med 02/19/22 19:15 Discontinued 4 mg .ROUTE .STK-MED ONE Ondansetron HCl 4 mg/2 ml [Zofran 4 MG/2 ML VIAL] Med 02/19/22 19:53 Active 4 mg IV Q6H PRN PRN Ondansetron HCl 4 mg/2 ml [Zofran 4 MG/2 ML VIAL] Med 02/19/22 19:11 Discontinued 4 mg IV STAT ONE PANTOPRAZOLE 40 mg Tablet [Protonix 40MG Tablet] Med 02/19/22 22:00 Active 40 mg PO DAILY Sertraline HCl 50 mg [Zoloft 50 mg Tablet] Med 02/19/22 22:00 Discontinued 100 mg PO DAILY Vancomycin/Water For Inj (Peg) [Vancomycin 1 Gram/200 Med 02/20/22 10:00 Active ml Bag] 1 gm in 200 ml IV Q24H Vancomycin/Water For Inj (Peg) [Vancomycin 1 Gram/200 Med 02/19/22 16:44 Discontinued ml Bag] 1 gm in 200 ml IV STAT Patient Care Notes (Last 24 hours) 02/20/22 11:09 Case Management Note by Doris Thomas PRIMARY NURSE STATED PATIENT IS CURRENTLY SETTLED DOWN- SHE REQUESTS CASE MANAGEMENT NOT DISRUPT PATIENT. SHE WILL DISCUSS IF PATIENT HAS ANY NEEDS WITH PATIENT NEXT TIME SHE HAS TO DISTURB HIM Initialized on 02/20/22 11:09 - END OF NOTE 02/20/22 09:56 Case Management Note by Doris Thomas PATIENT VERY WITHDRAWN, UPSET- STATING HE IS GOING TO LEAVE TODAY BECAUSE HE CANNOT MISS WORK. HE REPORTS HE LIVES WITH IS PARENTS AND THEY WILL NOT LET HIM LIVE THERE WITHOUT PAYING THEM. OFFERED TO CALL PATIENT'S WORK AND PATIENT'S FATHER- PATIENT DECLINED. WHEN OFFERED TO CALL FATHER HE STATED "THATS JUST GONNA MAKE IT WORSE". WILL TRY TO TALK TO PATIENT AGAIN LATER IF PATIENT IS CALM AND WILLING TO DISCUSS NEEDS Initialized on 02/20/22 09:56 - END OF NOTE Code(s): L03.114 - CELLULITIS OF LEFT UPPER LIMB (2) Leukocytosis Current Visit: Yes Status: Acute Qualifiers: Leukocytosis type: bandemia Qualified Code(s): D72.825 - Bandemia Code(s): D72.829 - ELEVATED WHITE BLOOD CELL COUNT, UNSPECIFIED (3) Skin induration Current Visit: Yes Status: Acute Code(s): R23.4 - CHANGES IN SKIN TEXTURE
[2022-02-20 17:37] LABS: Dipstick done @ ? MAIN LAB
--- NOTE | 2022-02-21 21:34 | PCM.DS ---
Discharge Summary Date of Admission: 02/19/22 19:47 Admitting Physician: EDA NOLASCO Primary Care Provider: EDA NOLASCO Allergies Allergies Penicillins Allergy (Verified 02/19/22 15:45) Hospital Summary - Hospital Course Hospital Course: Chief Complaint Diagnosis redness om left arm for 2 days Allergies Allergy/AdvReac Type Severity Reaction Status Date / Time Penicillins Allergy Verified 02/19/22 15:45 Home Medications Medication Instructions Recorded Confirmed Last Taken Type Linezolid [Zyvox] 600 mg PO BID 14 Days #28 tablet 02/20/22 Unknown Rx Current Medications Discontinued Medications Generic Name Dose Route Start Last Admin Trade Name Freq PRN Reason Stop Dose Admin Hydrocodone Bitart/Acetaminophen 1 tab 02/19/22 21:27 02/19/22 22:51 Hydrocodone/Apap 5/325 Mg Tablet PO 02/24/22 21:26 1 tab Q4H PRN PRN Administration PAIN Aripiprazole 5 mg 02/19/22 22:00 02/20/22 09:29 Aripiprazole 10 Mg Tablet PO 03/21/22 21:59 5 mg DAILY DOUGLAS Administration Clindamycin Phosphate Confirm 02/19/22 19:36 Clindamycin Phosphate 600 Mg/4 Ml Vial Administered 02/19/22 19:37 Dose 1,200 mg .ROUTE .STK-MED ONE Clindamycin Phosphate 900 mg 02/19/22 19:47 02/19/22 19:48 Clindamycin Phosphate 600 Mg/4 Ml Vial IM 02/19/22 19:48 900 mg NOW ONE Administration Sodium Chloride 1,000 mls @ 100 mls/hr 02/19/22 16:45 02/19/22 19:31 Sodium Chloride 0.9% 1000 Ml IV 03/21/22 16:44 Not Given .Q10H DOUGLAS Vancomycin HCl 1 gm in 200 mls @ 125 mls/hr 02/19/22 16:44 02/19/22 19:46 Vancomycin 1 Gram/200 Ml Bag IV 02/19/22 18:19 Not Given STAT ONE Clindamycin HCl/Dextrose 900 mg in 50 mls @ 100 mls/hr 02/19/22 16:45 02/19/22 19:46 Clindamycin-D5w 900 Mg/50 Ml IV 02/19/22 17:14 Not Given STAT STA Vancomycin HCl 1 gm in 200 mls @ 125 mls/hr 02/20/22 10:00 02/20/22 10:55 Vancomycin 1 Gram/200 Ml Bag IV 03/22/22 09:59 125 mls/hr Q24H DOUGLAS Administration Clindamycin HCl/Dextrose 900 mg in 50 mls @ 100 mls/hr 02/20/22 10:00 02/20/22 09:28 Clindamycin-D5w 900 Mg/50 Ml IV 03/22/22 09:59 100 mls/hr Q24H DOUGLAS Administration Lidocaine HCl Confirm 02/20/22 10:45 Lidocaine - Mpf 2% 5 Ml Vial Administered 02/20/22 10:46 Dose 5 ml .ROUTE .STK-MED ONE Linezolid 600 mg 02/19/22 22:00 02/19/22 20:42 Linezolid 600 Mg Tablet PO 03/21/22 21:59 Not Given BID DOUGLAS Linezolid 600 mg 02/19/22 19:04 02/19/22 19:05 Linezolid 600 Mg Tablet PO 02/19/22 19:05 600 mg NOW ONE Administration Morphine Sulfate 4 mg 02/19/22 19:10 02/19/22 19:29 Morphine Sulfate 4 Mg/Ml Injection IV 02/19/22 19:11 4 mg STAT ONE Administration Morphine Sulfate Confirm 02/19/22 19:15 Morphine Sulfate 4 Mg/Ml Injection Administered 02/19/22 19:16 Dose 4 mg .ROUTE .STK-MED ONE Morphine Sulfate 4 mg 02/19/22 19:53 Morphine Sulfate 4 Mg/Ml Injection IV 02/24/22 19:52 Q4H PRN PRN PAIN Ondansetron HCl 4 mg 02/19/22 19:11 02/19/22 19:45 Ondansetron Hcl 4 Mg/2 Ml Vial IV 02/19/22 19:12 Not Given STAT ONE Ondansetron HCl Confirm 02/19/22 19:15 Ondansetron Hcl 4 Mg/2 Ml Vial Administered 02/19/22 19:16 Dose 4 mg .ROUTE .STK-MED ONE Ondansetron HCl 4 mg 02/19/22 19:53 Ondansetron Hcl 4 Mg/2 Ml Vial IV 03/21/22 19:52 Q6H PRN PRN NAUSEA/VOMITING Pantoprazole Sodium 40 mg 02/19/22 22:00 02/20/22 09:29 Protonix (Pantoprazole) 40 Mg Tablet PO 03/21/22 21:59 40 mg DAILY DOUGLAS Administration Sertraline HCl 100 mg 02/19/22 22:00 02/20/22 09:28 Sertraline Hcl 50 Mg Tab PO 03/21/22 21:59 100 mg DAILY DOUGLAS Administration Intake & Output (Last 24 hours) 02/19/22 02/20/22 02/21/22 02/22/22 11:59 11:59 11:59 11:59 Intake Total 300 0 Balance 300 0 Weight 75.2 kg Microbiology Results (Last 24 hours) 02/19/22 17:30 Blood Blood Culture Gram Stain - Pending 02/19/22 17:30 Blood Blood Culture - Preliminary NO GROWTH TO DATE - Vitals & Intake/Output Vital Signs: Vital Signs Temperature 98.0 F 02/20/22 12:00 Pulse Rate 60 02/20/22 12:00 Respiratory Rate 12 02/20/22 12:00 Blood Pressure 105/59 02/20/22 12:00 O2 Sat by Pulse Oximetry 94 L 02/20/22 12:00 Intake & Output: Intake & Output 02/19/22 02/20/22 02/21/22 02/22/22 11:59 11:59 11:59 11:59 Intake Total 300 0 Balance 300 0 Weight 75.2 kg - Lab Result Diagrams: 02/20/22 04:30 02/20/22 04:30 Micro Results-Entire Visit: Microbiology 02/19/22 17:30 Blood Culture - Preliminary Blood NO GROWTH TO DATE Discharge Exam General Appearance: no apparent distress, alert Neurologic Exam: alert, oriented x 3, cooperative, normal mood/affect, nml cerebellar function, sensation nml, No motor deficits Eye Exam: PERRL, EOMI, eyes nml inspection Ears, Nose, Throat Exam: normal ENT inspection, pharynx normal, moist mucous membranes Neck Exam: normal inspection, non-tender, supple, full range of motion Respiratory Exam: normal breath sounds, lungs clear, No respiratory distress Cardiovascular Exam: regular rate/rhythm, normal heart sounds Gastrointestinal/Abdomen Exam: soft, No tenderness, No mass Male Genitalia Exam: deferred Rectal Exam: deferred Back Exam: normal inspection, normal range of motion, No CVA tenderness, No vertebral tenderness Extremity Exam: normal inspection, normal range of motion Skin Exam: normal color, warm, dry Final Diagnosis/Problem List - Final Discharge Diagnosis/Problem (1) Cellulitis of forearm, left Status: Acute Assessment & Plan: Chief Complaint Diagnosis redness om left arm for 2 days Allergies Allergy/AdvReac Type Severity Reaction Status Date / Time Penicillins Allergy Verified 02/19/22 15:45 Home Medications Medication Instructions Recorded Confirmed Last Taken Type Linezolid [Zyvox] 600 mg PO BID 14 Days #28 tablet 02/20/22 Unknown Rx Current Medications Discontinued Medications Generic Name Dose Route Start Last Admin Trade Name Freq PRN Reason Stop Dose Admin Hydrocodone Bitart/Acetaminophen 1 tab 02/19/22 21:27 02/19/22 22:51 Hydrocodone/Apap 5/325 Mg Tablet PO 02/24/22 21:26 1 tab Q4H PRN PRN Administration PAIN Aripiprazole 5 mg 02/19/22 22:00 02/20/22 09:29 Aripiprazole 10 Mg Tablet PO 03/21/22 21:59 5 mg DAILY DOUGLAS Administration Clindamycin Phosphate Confirm 02/19/22 19:36 Clindamycin Phosphate 600 Mg/4 Ml Vial Administered 02/19/22 19:37 Dose 1,200 mg .ROUTE .STK-MED ONE Clindamycin Phosphate 900 mg 02/19/22 19:47 02/19/22 19:48 Clindamycin Phosphate 600 Mg/4 Ml Vial IM 02/19/22 19:48 900 mg NOW ONE Administration Sodium Chloride 1,000 mls @ 100 mls/hr 02/19/22 16:45 02/19/22 19:31 Sodium Chloride 0.9% 1000 Ml IV 03/21/22 16:44 Not Given .Q10H DOUGLAS Vancomycin HCl 1 gm in 200 mls @ 125 mls/hr 02/19/22 16:44 02/19/22 19:46 Vancomycin 1 Gram/200 Ml Bag IV 02/19/22 18:19 Not Given STAT ONE Clindamycin HCl/Dextrose 900 mg in 50 mls @ 100 mls/hr 02/19/22 16:45 02/19/22 19:46 Clindamycin-D5w 900 Mg/50 Ml IV 02/19/22 17:14 Not Given STAT STA Vancomycin HCl 1 gm in 200 mls @ 125 mls/hr 02/20/22 10:00 02/20/22 10:55 Vancomycin 1 Gram/200 Ml Bag IV 03/22/22 09:59 125 mls/hr Q24H DOUGLAS Administration Clindamycin HCl/Dextrose 900 mg in 50 mls @ 100 mls/hr 02/20/22 10:00 02/20/22 09:28 Clindamycin-D5w 900 Mg/50 Ml IV 03/22/22 09:59 100 mls/hr Q24H DOUGLAS Administration Lidocaine HCl Confirm 02/20/22 10:45 Lidocaine - Mpf 2% 5 Ml Vial Administered 02/20/22 10:46 Dose 5 ml .ROUTE .STK-MED ONE Linezolid 600 mg 02/19/22 22:00 02/19/22 20:42 Linezolid 600 Mg Tablet PO 03/21/22 21:59 Not Given BID DOUGLAS Linezolid 600 mg 02/19/22 19:04 02/19/22 19:05 Linezolid 600 Mg Tablet PO 02/19/22 19:05 600 mg NOW ONE Administration Morphine Sulfate 4 mg 02/19/22 19:10 02/19/22 19:29 Morphine Sulfate 4 Mg/Ml Injection IV 02/19/22 19:11 4 mg STAT ONE Administration Morphine Sulfate Confirm 02/19/22 19:15 Morphine Sulfate 4 Mg/Ml Injection Administered 02/19/22 19:16 Dose 4 mg .ROUTE .STK-MED ONE Morphine Sulfate 4 mg 02/19/22 19:53 Morphine Sulfate 4 Mg/Ml Injection IV 02/24/22 19:52 Q4H PRN PRN PAIN Ondansetron HCl 4 mg 02/19/22 19:11 02/19/22 19:45 Ondansetron Hcl 4 Mg/2 Ml Vial IV 02/19/22 19:12 Not Given STAT ONE Ondansetron HCl Confirm 02/19/22 19:15 Ondansetron Hcl 4 Mg/2 Ml Vial Administered 02/19/22 19:16 Dose 4 mg .ROUTE .STK-MED ONE Ondansetron HCl 4 mg 02/19/22 19:53 Ondansetron Hcl 4 Mg/2 Ml Vial IV 03/21/22 19:52 Q6H PRN PRN NAUSEA/VOMITING Pantoprazole Sodium 40 mg 02/19/22 22:00 02/20/22 09:29 Protonix (Pantoprazole) 40 Mg Tablet PO 03/21/22 21:59 40 mg DAILY DOUGLAS Administration Sertraline HCl 100 mg 02/19/22 22:00 02/20/22 09:28 Sertraline Hcl 50 Mg Tab PO 03/21/22 21:59 100 mg DAILY DOUGLAS Administration Intake & Output (Last 24 hours) 02/19/22 02/20/22 02/21/22 02/22/22 11:59 11:59 11:59 11:59 Intake Total 300 0 Balance 300 0 Weight 75.2 kg Microbiology Results (Last 24 hours) 02/19/22 17:30 Blood Blood Culture Gram Stain - Pending 02/19/22 17:30 Blood Blood Culture - Preliminary NO GROWTH TO DATE Code(s): L03.114 - CELLULITIS OF LEFT UPPER LIMB (2) Leukocytosis Status: Acute Code(s): D72.829 - ELEVATED WHITE BLOOD CELL COUNT, UNSPECIFIED (3) Skin induration Status: Acute Code(s): R23.4 - CHANGES IN SKIN TEXTURE - Discharge Discharge Date: 02/20/22 Disposition: Home, Self-Care Condition: Stable Prescriptions: New Linezolid [Zyvox] 600 mg PO BID 14 Days #28 tablet Discontinued Sertraline HCl [Zoloft] 100 mg PO 1600 No Action PANTOPRAZOLE 40 mg Tablet [Protonix 40MG Tablet] 40 mg PO 1600 Aripiprazole 10 mg [Abilify 10 MG] 5 mg PO DAILY #30 tablet Instructions: Cellulitis (Skin Infection), Adult (DC), Linezolid Additional Instructions: HOLD zoloft while taking zoloft. Resume zoloft once antibiotic is stopped. Speak with Dr. Nolasco on Saturday about specifics on medications. Follow up with: EDA NOLASCO MD [Primary Care Provider] - 02/23/22 2:00 pm Forms: Discharge Instructions, Work/School Release Form
== END 2022-02-20 16:30 | disposition home or self-care (01) ==
LOC: ED 15:36 → MED SURG 19:47
PROVIDERS: ADMIT General Practice; ATTEND General Practice
DX: L03.114 Cellulitis of left upper limb (principal); D72.829 Elevated white blood cell count, unspecified; R23.4 Changes in skin texture; Z20.828 Contact with and (suspected) exposure to other viral communicable diseases; Z79.899 Other long term (current) drug therapy; Z72.0 Tobacco use
CPT/HCPCS: 0241U; 36415; 73090; 76881; 80053; 81015; 83605; 85025; 87040; 87070; 93041; 94760; 96372; 99284; 93268; J2270; J2405; A9270-GY; G0378; J3370

== ENCOUNTER 2022-05-31 14:27 | Observation (INO) | payer OTHER ==
[2022-05-31] MEDS ORDERED: MORPHINE SULFATE 4 MG INJ ONE (14:53)
[2022-05-31] MEDS ORDERED: MORPHINE SULFATE 4 MG INJ IV ONE ×2 (14:55→16:38)
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
[2022-05-31] MEDS ORDERED: Sodium Chloride 0.9% 1000 ML 1,000 ML IV STA (15:56)
[2022-05-31] MEDS ORDERED: FLAGYL 500 MG IVPB 500 MG/100 ML BAG IV STA (15:56)
[2022-05-31] MEDS ORDERED: AZACTAM 1 GM*** 2 GM in Sodium Chloride 0.9% 100 ML IV ONE (15:56)
[2022-05-31] MEDS ORDERED: VANCOMYCIN 2 GRAM/400 ML BAG 2 GM/400 ML PIGGYBACK IV SCH (16:00)
[2022-05-31] MEDS ORDERED: Sodium Chloride 0.9% 1000 ML 1,000 ML ONE (16:01)
[2022-05-31] MEDS ORDERED: FLAGYL 500 MG IVPB 500 MG/100 ML BAG IV ONE (16:01)
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
[2022-05-31 16:31] LABS: Absolute Neutrophil Ct (ANC) 10.78 x10^3/uL (1.4-6.9); Basophil (Absolute #) 0.07 x10^3/uL (0-0.4); Eosinophil % 1.7 % (0.00-5.0); Eosinophil (Absolute #) 0.23 x10^3/uL (0-0.5); Hematocrit 43.7 % (42-50); Hemoglobin 14.7 g/dL (12.5-18.0); Lymphocyte (Absolute #) 1.53 x10^3/uL (1.0-4.6); Lymphocytes % 11.4 % (24.0-44.0); Mean Corpuscular Hemoglobin 29.9 pg (26-32); Mean Corpuscular Hgb Concent. 33.6 g/dL (32-36); Mean Platelet Volume 9.9 fL (7.5-11.0); Monocyte (Absolute #) 0.73 x10^3/uL (0.0-1.3); Monocytes % 5.5 % (0.0-12.0); Neutrophil % 80.6 % (36.0-66.0); Platelet Count 236 x10^3/uL (150-450); Red Blood Count 4.91 x10^6/uL (4.1-5.6); Red Cell Distribution Width 13.1 % (11.5-14.0); White Blood Count 13.4 x10^3/uL (4.0-10.5)
[2022-05-31] MEDS ORDERED: Zofran 4 MG/2 ML VIAL IV ONE (16:38)
[2022-05-31 16:46] LABS: ALBUMIN 4.2 g/dL (3.5-5.0); ALKALINE PHOSPHATASE 99 U/L (38-126); ANION GAP 15.1 MEQ/L (5-15); BLOOD UREA NITROGEN 13 mg/dL (9-20); CHLORIDE 96 mmol/L (98-107); CK-Creatinine Phosphokinase 80 U/L (55-170); Calcium 9.6 mg/dL (8.4-10.2); Carbon Dioxide 26 mmol/L (22-30); Creatinine 1 1.09 mg/dL (0.66-1.25); EST GLOMERULAR FILTRATION RATE > 60.0 ML/MIN; Glucose 89 mg/dL (74-106); Potassium 3.7 mmol/L (3.5-5.1); SGOT/AST 25 U/L (17-59); SGPT/ALT 15 U/L (0-50); SODIUM 134 mmol/L (137-145); Total Protein 7.5 g/dL (6.3-8.2)
[2022-05-31] MEDS ORDERED: Hydromorphone 1 mg/ml Injection IV PRN (17:20)
[2022-05-31] MEDS ORDERED: VANCOMYCIN 1 GRAM/200 ML BAG 1 GM/200 ML PIGGYBACK IV SCH (17:30)
[2022-05-31] MEDS ORDERED: Zofran 4 MG/2 ML VIAL ONE (17:31)
[2022-05-31] MEDS ORDERED: Hydromorphone 1 mg/ml Injection IV ONE (17:53)
[2022-05-31] MEDS ORDERED: Xylocaine-Mpf 2% 5 Ml Vial ONE (17:59)
[2022-05-31] MEDS ORDERED: VANCOMYCIN 1.25 GM/250 ML BAG 1.25 GM/250 ML PIGGYBACK IV SCH (18:00)
[2022-05-31 18:41] LABS: INFLUENZA A NEGATIVE (NEGATIVE); INFLUENZA B NEGATIVE (NEGATIVE); RESPIRATORY SYNCTIAL VIRUS NEGATIVE (Negative); SARS-CoV-2 Xpert Express NEGATIVE (NEGATIVE)
[2022-05-31] MEDS ORDERED: PIPERACILLIN/TAZOBACTAM IV ONE (18:47)
[2022-05-31] MEDS ORDERED: Sodium Chloride 100ML MINI-BAG PLUS 100 ML IV ONE (18:47)
[2022-05-31] MEDS: PIPERACILLIN/TAZOBACTAM 3.375 GM in Sodium Chloride 100ML MINI-BAG PLUS 100 ML IV SCH (18:47)
[2022-05-31] MEDS ORDERED: TYLENOL 325 MG PO PRN (19:49)
[2022-05-31] MEDS ORDERED: MORPHINE SULFATE 4 MG INJ IV PRN (19:49)
[2022-05-31] MEDS ORDERED: Zofran 4 MG/2 ML VIAL IV PRN (19:49)
[2022-05-31] MEDS ORDERED: Sodium Chloride 0.9% 1000 ML 1,000 ML IV SCH (19:49)
[2022-05-31] MEDS ORDERED: VANCOCIN INJECTION*** 1 GM in Sodium Chloride 0.9% 250 ML 250 ML IV SCH (19:49)
[2022-05-31] MEDS: OXYCODONE-ACETAMINOPHEN 10-325 PO PRN (20:13)
[2022-05-31] MEDS ORDERED: AZACTAM 1 GM*** 2 GM in Sodium Chloride 0.9% 100 ML IV SCH (22:00)
[2022-06-01] MEDS ORDERED: FLAGYL 500 MG IVPB 500 MG/100 ML BAG IV SCH
[2022-06-01] MEDS: PIPERACILLIN/TAZOBACTAM 3.375 GM in Sodium Chloride 100ML MINI-BAG PLUS 100 ML IV SCH ×2 (00:02→06:23)
[2022-06-01] MEDS: OXYCODONE-ACETAMINOPHEN 10-325 PO PRN (06:26)
[2022-06-01 08:15] VITALS: BP 92/54; PULSE 67; O2SAT 96
--- NOTE | 2022-06-01 08:34 | XRAY ---
Indication: Pain. Two-dimensional sonogram and color Doppler imaging of the major venous vessels of the left leg performed. Comparison: None No thrombus seen in the examined deep venous vessels of the left leg including greater saphenous vein. Veins demonstrate normal compressibility. Venous waveforms are normal with and without augmentation. Impression: Left leg negative for DVT. Comment: Preliminary report given.
[2022-06-01] MEDS ORDERED: PROTONIX 40 MG IV IV SCH (10:00)
[2022-06-02] MEDS ORDERED: TROUGH DRUG LEVELS IJ ONE (05:30)
== END 2022-06-01 08:23 | disposition left against medical advice (07) ==
LOC: ED 14:27 → MED SURG 19:43
PROVIDERS: ADMIT Family Medicine; ATTEND Family Medicine
DX: S97.82XA Crushing injury of left foot, initial encounter (principal); L03.116 Cellulitis of left lower limb; Z72.0 Tobacco use; Z79.899 Other long term (current) drug therapy; Z20.828 Contact with and (suspected) exposure to other viral communicable diseases
CPT/HCPCS: 0241U; 36000; 36415; 73630; 80053; 82550; 83605; 84145; 85025; 85652; 87040; 93971; 96360; 96365; 96367; 96372; 96374; 96375; 99285; G0378; 99140; J1170; J2270; J2405; A9270-GY; J3370

== ENCOUNTER 2023-02-16 09:29 | Emergency (ER) | payer OTHER ==
[2023-02-16] MEDS ORDERED: TORAdol 30 mg Injection IM ONE (09:39)
[2023-02-16] MEDS ORDERED: TYLENOL 325 MG PO STA (09:40)
[2023-02-16 09:44] VITALS: BP 132/82; PULSE 81; O2SAT 98
[2023-02-16] MEDS ORDERED: TYLENOL 325 MG ONE (09:44)
[2023-02-16] MEDS ORDERED: TORAdol 30 mg Injection ONE (09:44)
--- NOTE | 2023-02-16 09:45 | ERPHSYRPT ---
- History of Present Illness Time Seen by Provider: 02/16/23 09:40 Source: patient Exam Limitations: no limitations Physician History: Patient comes in today w/ right great toe pain, swelling and bruising after a fall at ground level 2 days ago. Sxs have worsened over the past 2 days and now rates his pain as a 8/10 in severity. He denies radiation, numbness or tingling. No previous injury. Method of Injury: fell Occurred: days ago (2) Quality: constant, throbbing Severity of Pain-Max: severe Severity of Pain-Current: severe Lower Extremities Pain: foot: right (1st MTP) Modifying Factors: Improves With: nothing. Worsens With: movement Associated Symptoms: unable to bear weight Allergies/Adverse Reactions: Penicillins Allergy (Verified 02/16/23 09:43) Rash Home Medications: PANTOPRAZOLE 40 mg Tablet [Protonix 40MG Tablet] 40 mg PO 1600 09/28/19 [History] Aripiprazole 10 mg [Abilify 10 MG] 10 mg PO DAILY 05/31/22 [History] Sertraline HCl [Zoloft] 1 tab PO DAILY 05/31/22 [History] Hx Tetanus, Diphtheria Vaccination/Date Given: No (Unsure about tetanus) Hx Influenza Vaccination/Date Given: No Hx Pneumococcal Vaccination/Date Given: No Travel Risk - Vaccine Status Have you recieved a Covid-19 vaccination: No - Review of Systems Constitutional: No Symptoms Eyes: No Symptoms Ears, Nose, & Throat: No Symptoms Respiratory: No Symptoms Cardiac: No Symptoms Abdominal/Gastrointestinal: No Symptoms Genitourinary Symptoms: No Symptoms Musculoskeletal: Fall, Injury, Joint Pain Skin: No Symptoms Neurological: No Symptoms Psychological: No Symptoms Endocrine: No Symptoms Hematologic/Lymphatic: No Symptoms Immunological/Allergic: No Symptoms All Other Systems: Reviewed and Negative - Past Medical History Pertinent Past Medical History: Yes Neurological History: Migraines ENT History: No Pertinent History Cardiac History: No Pertinent History Respiratory History: No Pertinent History Endocrine Medical History: No Pertinent History Musculoskeletal History: Other GI Medical History: GERD History: No Pertinent History Psycho-Social History: Anxiety, Bipolar, Depression Male Reproductive Disorders: No Pertinent History Other Medical History: heart murmur; cellulitis bilat hands, osteomylitis - Past Surgical History Past Surgical History: Yes Neuro Surgical History: No Pertinent History Cardiac: No Pertinent History Respiratory: No Pertinent History Gastrointestinal: No Pertinent History Genitourinary: No Pertinent History Musculoskeletal: Orthopedic Surgery, Other Male Surgical History: No Pertinent History Other Surgical History: finger x2, back, shoulder - Social History Smoking Status: Current every day smoker How long have you smoked: 10 years Exposure to second hand smoke: Yes Drug Use: none Patient Lives Alone: No - Nursing Vital Signs Nursing Vital Signs: Initial Vital Signs Temperature 97.9 F 02/16/23 09:35 Pulse Rate 81 02/16/23 09:35 Blood Pressure 132/82 02/16/23 09:35 O2 Sat by Pulse Oximetry 98 02/16/23 09:35 Pain Scale Pain Intensity 8 - Physical Exam General Appearance: no apparent distress Foot Exam: right foot: bone tenderness (1st MTP), ecchymosis, limited range of motion, pain, soft tissue tenderness, swelling Neuro/Tendon Exam: normal sensation, responds to pain Mental Status Exam: alert, oriented x 3, cooperative Skin Exam: ecchymosis (1st MTP) SpO2 Interpretation: normal O2 Delivery: Room Air - Course Nursing assessment & vital signs reviewed: Yes - Radiology Exams Right Foot X-ray Interpretation: Interpreted by me, Non-displaced Fracture (1st middle phalanx) Ordered Tests: Active Orders 24 hr Category Date Time Status Ice Pack, Apply PRN Care 02/16/23 09:40 Active FOOT (MINIMUM 3 VIEWS) Stat Exams 02/16/23 09:39 Ordered Medication Summary Discontinued Medications Generic Name Dose Route Start Last Admin Trade Name Glennq PRN Reason Stop Dose Admin Acetaminophen 975 mg 02/16/23 09:40 02/16/23 09:45 Acetaminophen 325 Mg Tablet PO 02/16/23 09:41 975 mg STAT STA Administration Acetaminophen Confirm 02/16/23 09:44 Acetaminophen 325 Mg Tablet Administered 02/16/23 09:45 Dose 975 mg .ROUTE .STK-MED ONE Ketorolac Tromethamine 60 mg 02/16/23 09:39 02/16/23 09:46 Ketorolac Tromethamine 30 Mg/Ml Inj IM 02/16/23 09:40 60 mg STAT ONE Administration Ketorolac Tromethamine Confirm 02/16/23 09:44 Ketorolac Tromethamine 30 Mg/Ml Inj Administered 02/16/23 09:45 Dose 60 mg .ROUTE .STK-MED ONE - Progress Progress: unchanged Progress Note: 02/16/23 10:15 Patient has fx on XR. Placed in post op boot, NSAIDs sent to pharmacy and advised to f/u w/ Podiatry. Counseled pt/family regarding: diagnosis, need for follow-up, rad results Medical Desision Making - Diagnostic Testing Diagnostic test were ordered, analyzed, and reviewed by me: Yes Radiological Interpretation: Interpreted by me - Risk of complications Low Risk: Low risk of morbidity from additional dx testing or treatment - Departure Departure Disposition: Home Clinical Impression: Closed fracture of great toe Condition: Good Critical Care Time: No Referrals: EDA NOLASCO MD [Primary Care Provider] - Follow up/PCP as directed MAXIMILIANO BRICENO DPM [ACTIVE STAFF] - Follow up/PCP as directed Instructions: Foot Fracture (DC) Additional Instructions: Schedule Tylenol 1000mg in the morning and evening. Max dose of Tylenol 4000mg per day. Can use prescribed NSAID up to three times a day as well for pain. Ice 4-5 times daily for 10 minutes. Please remain in post op shoe until cleared by podiatry. Prescriptions: Ketorolac Trometh 10 mg Tab [TORAdol 10 MG TABLET] 10 mg PO TID PRN 7 Days #21 tablet PRN Reason: Pain
--- NOTE | 2023-02-16 17:09 | XRAY ---
Indication: Great toe pain following fall 2 days ago. Comparison: None 3 nonweightbearing views right foot demonstrates nondisplaced comminuted fracture proximal phalanx great toe. No other bony, articular, or soft tissue abnormalities.
== END 2023-02-16 10:27 | disposition home or self-care (01) ==
LOC: ED 09:29
DX: S92.414A Nondisplaced fracture of proximal phalanx of right great toe, initial encounter for closed fracture (principal); W18.30XA Fall on same level, unspecified, initial encounter; M79.674 Pain in right toe(s); Z79.899 Other long term (current) drug therapy; Z28.310 Unvaccinated for COVID-19; Z72.0 Tobacco use
CPT/HCPCS: 73630; 96372; 99283; J1885; A9270-GY

== ENCOUNTER 2023-04-30 22:39 | Emergency (ER) | payer OTHER ==
--- NOTE | 2023-04-30 22:41 | ERPHSYRPT ---
- History of Present Illness Time Seen by Provider: 04/30/23 22:41 Historian: patient Exam Limitations: no limitations Physician History: This is a 27-year-old white male patient who presents with epigastric discomfort and lower chest pain with associated vomiting up of 3 clots of blood. Patient states the symptoms were sudden in onset. He has not had diarrhea. When the episode occurred he had some shortness of air but currently does not have any shortness of air. He currently does not have significant abdominal pain. He has never had anything like this before. Patient does have a history of gastroesophageal reflux disease, anxiety and bipolar disorder. Patient is a daily smoker of cigarettes. Timing/Duration: today Activities at Onset: none Quality: aching Abdominal Pain Onset Location: epigastric Pain Radiation: no radiation Severity of Pain-Max: mild Severity of Pain-Current: mild Modifying Factors: Improves With: vomiting (3 clots) Associated Symptoms: nausea, vomiting, No chest pain, No diarrhea, No fever/chills, No loss of appetite, No shortness of breath, No weakness Previous symptoms: no prior history Allergies/Adverse Reactions: Penicillins Allergy (Verified 04/30/23 23:15) Rash Home Medications: PANTOPRAZOLE 40 mg Tablet [Protonix 40MG Tablet] 40 mg PO 1600 09/28/19 [History] Aripiprazole 10 mg [Abilify 10 MG] 10 mg PO DAILY 05/31/22 [History] Sertraline HCl [Zoloft] 1 tab PO DAILY 05/31/22 [History] Hx Tetanus, Diphtheria Vaccination/Date Given: No (Unsure about tetanus) Hx Influenza Vaccination/Date Given: No Hx Pneumococcal Vaccination/Date Given: No Travel Risk - International Travel Have you traveled outside of the country in past 3 weeks: No - Coronavirus Screening Are you exhibiting any of the following symptoms?: Yes Symptoms: Shortness of Breath, Vomiting/Diarrhea Close contact with a COVID-19 positive Pt in past 14-21 Days: No - Vaccine Status Have you recieved a Covid-19 vaccination: No - Review of Systems Constitutional: No Symptoms Eyes: No Symptoms Ears, Nose, & Throat: No Symptoms Respiratory: No Symptoms Cardiac: No Symptoms Abdominal/Gastrointestinal: No Symptoms Genitourinary Symptoms: No Symptoms Musculoskeletal: No Symptoms Skin: No Symptoms Neurological: No Symptoms Psychological: No Symptoms Endocrine: No Symptoms Hematologic/Lymphatic: No Symptoms Immunological/Allergic: No Symptoms All Other Systems: Reviewed and Negative - Past Medical History Pertinent Past Medical History: Yes Neurological History: Migraines ENT History: No Pertinent History Cardiac History: No Pertinent History Respiratory History: No Pertinent History Endocrine Medical History: No Pertinent History Musculoskeletal History: Other GI Medical History: GERD History: No Pertinent History Psycho-Social History: Anxiety, Bipolar, Depression Male Reproductive Disorders: No Pertinent History Other Medical History: heart murmur; cellulitis bilat hands, osteomylitis - Past Surgical History Past Surgical History: Yes Neuro Surgical History: No Pertinent History Cardiac: No Pertinent History Respiratory: No Pertinent History Gastrointestinal: No Pertinent History Genitourinary: No Pertinent History Musculoskeletal: Orthopedic Surgery, Other Male Surgical History: No Pertinent History Other Surgical History: finger x2, back, shoulder - Social History Smoking Status: Current every day smoker How long have you smoked: 10 years Exposure to second hand smoke: Yes Drug Use: none Patient Lives Alone: No - Nursing Vital Signs Nursing Vital Signs: Initial Vital Signs Temperature 98.3 F 04/30/23 23:07 Pulse Rate 82 04/30/23 23:07 Respiratory Rate 17 04/30/23 23:07 Blood Pressure 127/81 04/30/23 23:07 O2 Sat by Pulse Oximetry 98 04/30/23 23:07 Pain Scale Pain Intensity 8 - Physical Exam General Appearance: no apparent distress, alert, anxiety, thin Eye Exam: PERRL/EOMI, eyes nml inspection Ears, Nose, Throat Exam: normal ENT inspection, moist mucous membranes Neck Exam: normal inspection, non-tender, supple, full range of motion Respiratory Exam: normal breath sounds, lungs clear, No chest tenderness, No respiratory distress, No airway intact Cardiovascular Exam: regular rate/rhythm, normal heart sounds, normal peripheral pulses Gastrointestinal/Abdomen Exam: soft, normal bowel sounds, tenderness (Mild epigastric), No guarding, No rebound Rectal Exam: not done Back Exam: normal inspection, normal range of motion, No CVA tenderness, No vertebral tenderness Extremity Exam: normal inspection, normal range of motion, pelvis stable Neurologic Exam: alert, oriented x 3, cooperative, power mule operator II-XII nml as tested, normal mood/affect, nml cerebellar function, nml station & gait, sensation nml Skin Exam: normal color, warm, dry Lymphatic Exam: No adenopathy SpO2 Interpretation: normal O2 Delivery: Room Air - Course Nursing assessment & vital signs reviewed: Yes EKG Interpreted by Me: RATE (85), Sinus Rhythm, NORMAL AXIS, NORMAL INTERVALS, NORMAL QRS, NORMAL ST-T, Other (No acute ischemic changes on today's twelve-lead EKG.) Ordered Tests: Active Orders 24 hr Category Date Time Status Vamp Creaser STAT Care 04/30/23 23:50 Active EKG-ER Only STAT Care 04/30/23 23:49 Active Pulse Oximetry (ED) STAT Care 04/30/23 23:49 Active CHEST 1 VIEW (PORTABLE) Stat Exams 04/30/23 23:50 Ordered CBC W DIFF Stat Lab 04/30/23 23:54 Completed CMP Stat Lab 04/30/23 23:54 Completed MONO SCREEN Stat Lab 04/30/23 23:54 Completed TROPONIN Q4H Lab 05/01/23 00:00 Completed TROPONIN Q4H Lab 05/01/23 04:45 Ordered TROPONIN Q4H Lab 05/01/23 08:45 Ordered Medication Summary Discontinued Medications Generic Name Dose Route Start Last Admin Trade Name Barb PRN Reason Stop Dose Admin Ondansetron HCl 4 mg 04/30/23 23:51 05/01/23 00:01 Zofran 4 Mg/Udtablet Orally Disintegrating PO 04/30/23 23:52 4 mg STAT ONE Administration Ondansetron HCl Confirm 05/01/23 00:00 Zofran 4 Mg/Udtablet Orally Disintegrating Administered 05/01/23 00:01 Dose 4 mg .ROUTE .STK-MED ONE Lab/Rad Data: Laboratory Result Diagrams 04/30/23 23:54 04/30/23 23:54 Laboratory Results 05/01/23 04/30/23 04/30/23 Range/Units 00:00 23:54 23:54 WBC (4.0-10.5) x10^3/uL RBC (4.1-5.6) x10^6/uL Hgb (12.5-18.0) g/dL Hct (42-50) % MCV (78-100) fL MCH (26-32) pg MCHC (32-36) g/dL RDW (11.5-14.0) % Plt Count (150-450) x10^3/uL MPV (7.5-11.0) fL Gran % (36.0-66.0) % Immature Gran % (Auto) (0.00-0.4) % Nucleat RBC Rel Count (0.00-0.1) % Eos # (Auto) (0-0.5) x10^3/uL Immature Gran # (Auto) (0.00-0.03) x10^3u/L Absolute Lymphs (auto) (1.0-4.6) x10^3/uL Absolute Monos (auto) (0.0-1.3) x10^3/uL Absolute Nucleated RBC (0.00-0.01) x10^3u/L Lymphocytes % (24.0-44.0) % Monocytes % (0.0-12.0) % Eosinophils % (0.00-5.0) % Basophils % (0.0-0.4) % Absolute Granulocytes (1.4-6.9) x10^3/uL Basophils # (0-0.4) x10^3/uL Sodium 140 (137-145) mmol/L Potassium 4.5 (3.5-5.1) mmol/L Chloride 101 (98-107) mmol/L Carbon Dioxide 28 (22-30) mmol/L Anion Gap 15.2 H (5-15) MEQ/L BUN 17 (9-20) mg/dL Creatinine 1.02 (0.66-1.25) mg/dL Estimated GFR > 60.0 ML/MIN Glucose 95 (74-106) mg/dL Calcium 9.1 (8.4-10.2) mg/dL Total Bilirubin 0.60 (0.2-1.3) mg/dL AST 40 (17-59) U/L ALT 20 (0-50) U/L Alkaline Phosphatase 97 (38-126) U/L Troponin I < 0.012 (0.000-0.034) ng/mL Serum Total Protein 8.7 H (6.3-8.2) g/dL Albumin 4.9 (3.5-5.0) g/dL Monoscreen NEGATIVE (NEGATIVE) Influenza Type A Ag (NEGATIVE) Influenza Type B Ag (NEGATIVE) RSV (PCR) (NEGATIVE) SARS-CoV-2 (PCR) (NEGATIVE) Group A Strep Antibody (NEGATIVE) 04/30/23 04/30/23 04/30/23 Range/Units 23:54 00:09 00:09 WBC 6.7 (4.0-10.5) x10^3/uL RBC 4.95 (4.1-5.6) x10^6/uL Hgb 14.7 (12.5-18.0) g/dL Hct 44.4 (42-50) % MCV 89.7 (78-100) fL MCH 29.7 (26-32) pg MCHC 33.1 (32-36) g/dL RDW 12.8 (11.5-14.0) % Plt Count 227 (150-450) x10^3/uL MPV 10.0 (7.5-11.0) fL Gran % 76.9 H (36.0-66.0) % Immature Gran % (Auto) 0.3 (0.00-0.4) % Nucleat RBC Rel Count 0.0 (0.00-0.1) % Eos # (Auto) 0.02 (0-0.5) x10^3/uL Immature Gran # (Auto) 0.02 (0.00-0.03) x10^3u/L Absolute Lymphs (auto) 0.71 L (1.0-4.6) x10^3/uL Absolute Monos (auto) 0.75 (0.0-1.3) x10^3/uL Absolute Nucleated RBC 0.00 (0.00-0.01) x10^3u/L Lymphocytes % 10.6 L (24.0-44.0) % Monocytes % 11.2 (0.0-12.0) % Eosinophils % 0.3 (0.00-5.0) % Basophils % 0.7 (0.0-0.4) % Absolute Granulocytes 5.12 (1.4-6.9) x10^3/uL Basophils # 0.05 (0-0.4) x10^3/uL Sodium (137-145) mmol/L Potassium (3.5-5.1) mmol/L Chloride (98-107) mmol/L Carbon Dioxide (22-30) mmol/L Anion Gap (5-15) MEQ/L BUN (9-20) mg/dL Creatinine (0.66-1.25) mg/dL Estimated GFR ML/MIN Glucose (74-106) mg/dL Calcium (8.4-10.2) mg/dL Total Bilirubin (0.2-1.3) mg/dL AST (17-59) U/L ALT (0-50) U/L Alkaline Phosphatase (38-126) U/L Troponin I (0.000-0.034) ng/mL Serum Total Protein (6.3-8.2) g/dL Albumin (3.5-5.0) g/dL Monoscreen (NEGATIVE) Influenza Type A Ag NEGATIVE (NEGATIVE) Influenza Type B Ag NEGATIVE (NEGATIVE) RSV (PCR) NEGATIVE (NEGATIVE) SARS-CoV-2 (PCR) NEGATIVE (NEGATIVE) Group A Strep Antibody NOT DETECTED (NEGATIVE) - Progress Progress: improved Progress Note: 05/01/23 00:47 Chest x-ray was interpreted by me. There is no evidence of any acute cardiopulmonary process. This patient's medical issue is 1 of moderate complexity. The level of complexity and the work-up performed is based on the patient's past medical history, review of the patient's medication list, review of the patient's drug allergies, history of present illness and physical findings on examination. This patient's work-up includes twelve-lead EKG, chest x-ray, troponin level, CBC, CMP, amylase level. Work-up results are pending. Likely, this patient may have had some gastritis and we will place him on Zofran as well as to continue your Protonix at the time of discharge. Patient will avoid fatty greasy spicy foods. We will make changes to the discharge instructions if there are any different findings on the remainder of the patient's work-up. 05/01/23 00:50 05/01/23 00:51 Avoid nicotine/tobacco in any form. Avoid alcohol use. Avoid caffeine use. Counseled pt/family regarding: lab results, diagnosis, need for follow-up, rad results, smoking cessation Medical Desision Making - Diagnostic Testing Diagnostic test were ordered, analyzed, and reviewed by me: Yes Radiological Interpretation: Interpreted by me - Risk of complications The pt has a mod risk of morbidity or mortality based on: Need for prescription drug management - Departure Departure Disposition: Home Clinical Impression: Gastritis, Epigastric abdominal pain Condition: Stable Critical Care Time: No Referrals: GAURAV,EDA, MD [Primary Care Provider] - Follow up/PCP as directed Additional Instructions: Avoid fatty greasy spicy foods. Avoid caffeine, tobacco and alcohol products. Use your medication as prescribed. Follow-up with your primary care provider today by phone to make arranges for follow-up appointment in the next 3 days. Prescriptions: Ondansetron ODT 4 MG [Zofran Odt 4 mg] 4 mg PO Q6H PRN PRN #10 tablet PRN Reason: Vomiting
[2023-04-30] MEDS ORDERED: ZOFRAN ODT 4 MG PO ONE (23:51)
[2023-04-30 23:56] LABS: Absolute Neutrophil Ct (ANC) 5.12 x10^3/uL (1.4-6.9); BASOPHIL % 0.7 % (0.0-0.4); Basophil (Absolute #) 0.05 x10^3/uL (0-0.4); Eosinophil % 0.3 % (0.00-5.0); Eosinophil (Absolute #) 0.02 x10^3/uL (0-0.5); Hematocrit 44.4 % (42-50); Hemoglobin 14.7 g/dL (12.5-18.0); IMMATURE GRAN # 0.02 x10^3u/L (0.00-0.03); IMMATURE GRAN % 0.3 % (0.00-0.4); Lymphocyte (Absolute #) 0.71 x10^3/uL (1.0-4.6); Lymphocytes % 10.6 % (24.0-44.0); Mean Cell Volume 89.7 fL (78-100); Mean Corpuscular Hemoglobin 29.7 pg (26-32); Mean Corpuscular Hgb Concent. 33.1 g/dL (32-36); Monocyte (Absolute #) 0.75 x10^3/uL (0.0-1.3); Monocytes % 11.2 % (0.0-12.0); Neutrophil % 76.9 % (36.0-66.0); Platelet Count 227 x10^3/uL (150-450); Red Blood Count 4.95 x10^6/uL (4.1-5.6); Red Cell Distribution Width 12.8 % (11.5-14.0); White Blood Count 6.7 x10^3/uL (4.0-10.5)
[2023-05-01] MEDS ORDERED: ZOFRAN ODT 4 MG ONE
[2023-05-01 00:02] LABS: ALBUMIN 4.9 g/dL (3.5-5.0); ALKALINE PHOSPHATASE 97 U/L (38-126); ANION GAP 15.2 MEQ/L (5-15); BLOOD UREA NITROGEN 17 mg/dL (9-20); CHLORIDE 101 mmol/L (98-107); Calcium 9.1 mg/dL (8.4-10.2); Carbon Dioxide 28 mmol/L (22-30); Creatinine 1 1.02 mg/dL (0.66-1.25); EST GLOMERULAR FILTRATION RATE > 60.0 ML/MIN; Glucose 95 mg/dL (74-106); Potassium 4.5 mmol/L (3.5-5.1); SGOT/AST 40 U/L (17-59); SGPT/ALT 20 U/L (0-50); SODIUM 140 mmol/L (137-145); Total Protein 8.7 g/dL (6.3-8.2)
[2023-05-01 00:49] LABS: INFLUENZA A NEGATIVE (NEGATIVE); INFLUENZA B NEGATIVE (NEGATIVE); RESPIRATORY SYNCTIAL VIRUS NEGATIVE (NEGATIVE); SARS-CoV-2 Xpert Express NEGATIVE (NEGATIVE)
[2023-05-01 01:49] VITALS: BP 127/80; PULSE 99; O2SAT 97
--- NOTE | 2023-05-01 09:14 | XRAY ---
Indication: Cough. Comparison: None Portable chest inflated and clear. Heart not enlarged. Bony thorax intact. Impression: Nonacute chest.
== END 2023-05-01 01:55 | disposition home or self-care (01) ==
LOC: ED 22:39
DX: K29.70 Gastritis, unspecified, without bleeding (principal); R10.13 Epigastric pain; K92.0 Hematemesis; R07.9 Chest pain, unspecified; Z79.899 Other long term (current) drug therapy; Z72.0 Tobacco use; Z28.310 Unvaccinated for COVID-19
CPT/HCPCS: 0241U; 36415; 71045; 80053; 84484; 85025; 86308; 87040; 87651; 93005; 93041; 94760; 99284; Q0162

== ENCOUNTER 2023-06-21 05:59 | Day surgery (SDC) | payer OTHER ==
[~2023-06-21 05:59] MED LIST: BRIDION 200MG/2ML IV ONE; DIPRIVAN 200 MG/20 ML IV ONE; Decadron 4 MG INJ ONE; SUBLIMAZE 100 MCG/2 ML ONE; Versed 2 MG/2 ML Injection ONE; Xylocaine-Mpf 2% 5 Ml Vial ONE; Zemuron 100 MG/10 ML ONE; Zofran 4 MG/2 ML VIAL ONE
[2023-06-21] MEDS ORDERED: CLINDAMYCIN-D5W 900 MG/50 ML*** 900 MG/50 ML BAG IV STA (06:10)
[2023-06-21] MEDS ORDERED: Lactated Ringers 1,000 ML IV SCH (06:30)
[2023-06-21] MEDS ORDERED: Marcaine Mpf 0.5% Vial 30 Ml ONE (06:42)
[2023-06-21] MEDS ORDERED: Xylocaine 1% Vial 30 ML PF IJ ONE (06:42)
[2023-06-21 06:43] LABS: Barbiturate,Urine NEGATIVE (NEGATIVE); Benzodiazepine,Urine NEGATIVE (NEGATIVE); Cocaine,Urine NEGATIVE (NEGATIVE); Methadone,Urine NEGATIVE (NEGATIVE); Opiate,Urine NEGATIVE (NEGATIVE); PCP,Urine NEGATIVE (NEGATIVE); THC,Urine POSITIVE (NEGATIVE)
[2023-06-21 07:24] LABS: Hematocrit 47.2 % (42-50); Hemoglobin 15.6 g/dL (12.5-18.0); Mean Cell Volume 90.6 fL (78-100); Mean Corpuscular Hemoglobin 29.9 pg (26-32); Mean Corpuscular Hgb Concent. 33.1 g/dL (32-36); Mean Platelet Volume 9.5 fL (7.5-11.0); Platelet Count 350 x10^3/uL (150-450); Red Blood Count 5.21 x10^6/uL (4.1-5.6); Red Cell Distribution Width 12.6 % (11.5-14.0); White Blood Count 9.5 x10^3/uL (4.0-10.5)
[2023-06-21 07:31] LABS: ALBUMIN 4.4 g/dL (3.5-5.0); ALKALINE PHOSPHATASE 97 U/L (38-126); ANION GAP 14.4 MEQ/L (5-15); BLOOD UREA NITROGEN 10 mg/dL (9-20); CHLORIDE 105 mmol/L (98-107); Calcium 9.3 mg/dL (8.4-10.2); Carbon Dioxide 26 mmol/L (22-30); Creatinine 1 0.94 mg/dL (0.66-1.25); EST GLOMERULAR FILTRATION RATE > 60.0 ML/MIN; Glucose 107 mg/dL (74-106); Potassium 4.4 mmol/L (3.5-5.1); SGOT/AST 23 U/L (17-59); SGPT/ALT 16 U/L (0-50); SODIUM 141 mmol/L (137-145); Total Protein 7.8 g/dL (6.3-8.2)
[2023-06-21 07:46] LABS: INR 0.94 (0.8-3.0); PROTIME 10.3 SECONDS (9.4-12.5); PTT 29.6 SECONDS (25.1-36.5)
[2023-06-21] MEDS ORDERED: Decadron 4 MG INJ ONE (07:55)
[2023-06-21 08:04] LABS: Amphetamine,Urine POSITIVE (NEGATIVE)
[2023-06-21] MEDS ORDERED: PHENYLEPHRINE HCL ONE (08:22)
[2023-06-21] MEDS ORDERED: TORAdol 30 mg Injection ONE (08:52)
[2023-06-21] MEDS ORDERED: Hydromorphone 1 mg/ml Injection ONE (09:28)
[2023-06-21 11:06] VITALS: RESP 18; O2SAT 95
[2023-06-21 11:16] VITALS: BP 138/84; PULSE 92; TEMP 98.2
--- NOTE | 2023-06-21 15:07 | OP ---
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 2) Pain right foot. 3) Sagittal plane deformity right proximal phalanx. 4) Osteoarthritis first metatarsophalangeal joint. 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 2) Pain right foot. 3) Sagittal plane deformity right proximal phalanx. 4) Osteoarthritis first metatarsophalangeal joint. PROCEDURES: 1) Interphalangeal joint arthrodesis right great toe. 2) Proximal phalanx osteotomy with cheilectomy. SURGEON: Jovi Meyers DPM. [employer]FT [employer] ME[employer]IC: None. ANESTHESIA: Monitored anesthesia care with intraoperative block. See injectables for details. HEMOSTASIS: Ankle tourniquet set to 250 mm of Mercury for 58 total tourniquet minutes. ESTIMATED BLOOD LOSS: Minimal. INJECTABLES: 20 cc of a 1:1 mixture of 1% Marcaine plain and 0.5% bupivacaine plain injected in a Bloom block-type fashion. INDICATION: Solis is a very pleasant 27-year-old male who presented to my service approximately three to four weeks after a fracture of his proximal phalanx. Unfortunately at that time there was already bone healing taking place and there was a significant sagittal plane deformity as well as the fracture was intra-articular. It was decided that at that time we gave this time to see if the pain had subsided. From that standpoint, the patient progressed to approximately 12 weeks following the fracture with no relief in his symptoms and he was unable to bear weight at that point. At this time the patient wishes to proceed with surgical intervention. The plan was discussed with the patient in regards to surgery and expectations. The patient understands that he will have fusion of the joint and the goal will be to have a plantigrade toe against weightbearing surface with minimal pain. From that standpoint there have been multiple issues that resulted in deformity that have been encountered. There is a sagittal plane deformity that needs to be corrected. As a result of correction there will likely be some degree of shortening of the toe. In conjunction with this there was intraarticular deformity to the metatarsophalangeal joint which did cause him some pain and a cheilectomy will be performed to eliminate some of his pain. The patient is agreeable and at this time wishes to proceed. The patient understands all risks, complications and benefits of surgical intervention including but not limited to infection, hematoma, seroma, possibility of delayed wound healing, nonwound healing, possibility of residual pain and possible failure of surgical intervention. It has been noted that there has been no guarantees provided as to the outcome. It is with that we decided to proceed. DESCRIPTION OF PROCEDURE AND FINDINGS: The patient was brought into the OR and placed on the OR table in the supine position. At this time and a well-padded ankle tourniquet was applied to the patient's right ankle. Monitored anesthesia care was then administered until the patient was sedated. The right lower extremity was then prepped and draped in typical sterile fashion and lowered onto the surgical field. At this time attention was directed to the dorsal aspect of the first metatarsophalangeal joint and interphalangeal joint. A linear incision was made just medial to the extensor hallucis longus tendon this was deepened making sure not to damage any neurovascular structures along the way. Extensor hallucis longus tendon was retracted out of the site while inspecting the metatarsophalangeal joint and interphalangeal joint. The interphalangeal joint was first inspected. At this time there was some comminution of the intraarticular component of the proximal phalangeal head along with a sagittal plane deformity. From that standpoint decision was made to make an osteotomy at plantar flexed distal phalanx and dorsiflexion portion of the malunion be as apparent without cutting too much bone. From that standpoint, proximal phalangeal was resected at an angle. From that standpoint the distal phalanx was then prepped and all cartilage was removed until the subchondral plate was identified. Copious amounts of sterile saline were utilized to flush the surgical site. 2 mm drill was then utilized to fenestrate the surfaces and then a K-wire retrograded at the tip of the distal phalanx and anterograded into the proximal phalanx making sure there was excellent apposition of the interphalangeal joint, this was viewed under multiple views and deemed to be adequate. A 4.0 x 34 VPC screw was then introduced from the distal tip of the toe insuring excellent fixation. A 10 x 8 Unitus staple was then introduced from dorsal aspect in order to get continuous compression to this joint during the union process. Attention was then directed to the first metatarsophalangeal joint where a significant amount of scar tissue was seen at the proximal phalangeal base. The capsule was resected and following this cheilectomy took place on the proximal phalangeal base until the range of motion was improved by approximately 35 degrees. From that standpoint copious amounts of sterile saline were utilized to flush the surgical site. The capsule was then repaired utilizing 4-0 Monocryl to coapt the subcutaneous edges and 3-0 Nylon was utilized in a horizontal mattress-type fashion to the skin edges. A dressing consisting of Betadine, Adaptic, 4x4, Kerlix, YONG was then applied. The patient was then reversed from anesthesia and returned to the postoperative anesthesia care unit with vital signs stable and vascular status intact. The patient handled the anesthesia as well as the procedure without significant complications. Postoperative orders as indicated in the patient's discharge chart.
--- NOTE | 2023-06-21 19:22 | XRAY ---
Indication: Right proximal phalanx interphalangeal arthrodesis. Intraoperative fluoroscopy provided for 2 minute 18 seconds. 14 digital spot images submitted for interpretation demonstrates 1st IP joint arthrodesis with intact screw and orthopedic staple. Correlate with intraoperative findings/report.
--- NOTE | 2023-06-21 19:29 | XRAY ---
2 minutes and 18 seconds of fluoroscopy was used in surgery for a right foot proximal interphalangeal arthrodesis.
== END 2023-06-21 11:18 | disposition home or self-care (01) ==
LOC: SDC 05:59
PROVIDERS: ATTEND Podiatrist Foot & Ankle Surgery
DX: M13.871 Other specified arthritis, right ankle and foot (principal); M79.671 Pain in right foot; M21.6X1 Other acquired deformities of right foot
CPT/HCPCS: 28289; 28310; 28755; 36415; 73630; 76000; 80053; 80307; 85027; 85610; 85730; C1713; J1100; J1170; J1885; J2001; J2250; J2370; J2405; J2704; J3010

== ENCOUNTER 2023-11-25 10:30 | Emergency (ER) | payer OTHER ==
[2023-11-25 10:38] VITALS: RESP 22; TEMP 97.8
[2023-11-25] MEDS ORDERED: Sodium Chloride 0.9% 1000 ML 1,000 ML IV STA (10:48)
[2023-11-25] MEDS ORDERED: ZOFRAN ODT 4 MG PO ONE (11:28)
[2023-11-25] MEDS ORDERED: ZOFRAN ODT 4 MG ONE (11:28)
[2023-11-25 11:39] LABS: INFLUENZA B NEGATIVE (NEGATIVE); RESPIRATORY SYNCTIAL VIRUS NEGATIVE (NEGATIVE); SARS-CoV-2 Xpert Express NEGATIVE (NEGATIVE)
[2023-11-25] MEDS ORDERED: Xylocaine-Mpf 2% 5 Ml Vial ONE (11:48)
[2023-11-25 11:59] LABS: INFLUENZA A POSITIVE (NEGATIVE)
[2023-11-25] MEDS ORDERED: Sodium Chloride 0.9% 1000 ML 1,000 ML ONE (12:17)
--- NOTE | 2023-11-25 12:27 | ERPHSYRPT ---
- History of Present Illness Time Seen by Provider: 11/25/23 10:45 Source: patient, family Exam Limitations: no limitations Patient Subjective Stated Complaint: Pt states "I am sick. I have been vomitnig and coughing and my head hurts." Triage Nursing Assessment: PT presented alert and oriented X 3, skin pwd. Pt ambulates with an upright steady gait, able to speak in clear full sentences. PT moaning and resting on bed. Physician History: Patient is a 27-year-old white male who presents with a chief complaint of "miri lly sick" he started yesterday with vomiting and that has continued all morning and through the night. He also complains of shortness of breath and a cough which is nonproductive he also complains of abdominal pain. He has had no fever documented but he has had chills. Timing/Duration: yesterday Severity: moderate Modifying Factors: Improves With: eating, immobilization Associated Symptoms: nausea, vomiting, abdominal pain, shortness of breath, chills, chest pain, weakness Allergies/Adverse Reactions: latex Allergy (Unknown, Verified 06/21/23 06:45) Swelling Penicillins Allergy (Verified 06/21/23 06:45) Rash Home Medications: Aripiprazole 10 mg [Abilify 10 MG] 10 mg PO DAILY 05/31/22 [History] Sertraline HCl [Zoloft] 1 tab PO DAILY 05/31/22 [History] Hx Tetanus, Diphtheria Vaccination/Date Given: No Hx Influenza Vaccination/Date Given: No Hx Pneumococcal Vaccination/Date Given: No Immunizations Up to Date: No Travel Risk - International Travel Have you traveled outside of the country in past 3 weeks: No - Coronavirus Screening Are you exhibiting any of the following symptoms?: Yes Symptoms: Cough: New Onset, Vomiting/Diarrhea, Headaches/Body Aches/Fatigue - Vaccine Status Have you recieved a Covid-19 vaccination: No - Review of Systems Constitutional: Chills, Lethargy, Malaise, No Fever Eyes: No Symptoms Ears, Nose, & Throat: No Symptoms, Nose Congestion, Throat Pain Respiratory: Cough, Dyspnea Cardiac: Chest Pain, No Edema, No Syncope Abdominal/Gastrointestinal: Abdominal Pain, Nausea, Vomiting, No Diarrhea Genitourinary Symptoms: No Dysuria Musculoskeletal: No Back Pain, No Neck Pain Skin: No Rash Neurological: No Dizziness, No Focal Weakness, No Sensory Changes Psychological: No Symptoms Endocrine: No Symptoms All Other Systems: Reviewed and Negative - Past Medical History Pertinent Past Medical History: Yes Neurological History: Migraines ENT History: No Pertinent History Cardiac History: No Pertinent History, Other Respiratory History: No Pertinent History Endocrine Medical History: No Pertinent History Musculoskeletal History: Other GI Medical History: GERD History: No Pertinent History Psycho-Social History: Anxiety, Bipolar, Depression Male Reproductive Disorders: No Pertinent History Other Medical History: heart murmur; cellulitis bilat hands, osteomylitis - Past Surgical History Past Surgical History: Yes Neuro Surgical History: No Pertinent History Cardiac: No Pertinent History Respiratory: No Pertinent History Gastrointestinal: No Pertinent History Genitourinary: No Pertinent History Musculoskeletal: Orthopedic Surgery, Other Male Surgical History: No Pertinent History Other Surgical History: finger x2, back, shoulder - Social History Smoking Status: Current every day smoker How long have you smoked: 14 yrs old Exposure to second hand smoke: Yes Drug Use: marijuana Patient Lives Alone: No - Nursing Vital Signs Nursing Vital Signs: Initial Vital Signs Temperature 97.8 F 11/25/23 10:35 Pulse Rate 98 H 11/25/23 10:35 Respiratory Rate 22 11/25/23 10:35 Blood Pressure 129/82 11/25/23 10:35 O2 Sat by Pulse Oximetry 98 11/25/23 10:35 Pain Scale Pain Intensity 0 - Physical Exam General Appearance: mild distress Eye Exam: PERRL/EOMI, eyes nml inspection Ears, Nose, Throat Exam: dry mucous membranes, pharyngeal erythema Neck Exam: non-tender, supple, full range of motion Respiratory Exam: normal breath sounds, lungs clear Cardiovascular Exam: regular rate/rhythm, normal heart sounds Gastrointestinal/Abdomen Exam: normal bowel sounds, tenderness SpO2 Interpretation: normal SpO2: 97 O2 Delivery: Room Air - Course Nursing assessment & vital signs reviewed: Yes - Radiology Exams Chest X-ray Interpretation: Reviewed by me Ordered Tests: Active Orders 24 hr Category Date Time Status IV Insertion STAT Care 11/25/23 10:48 Active ABDOMEN AND PELVIS W CONTRAST [CT] Stat Exams 11/25/23 10:49 Completed CHEST 1 VIEW (PORTABLE) Stat Exams 11/25/23 10:49 Completed CBC W DIFF Stat Lab 11/25/23 12:25 Completed CMP Stat Lab 11/25/23 12:25 Completed LIPASE Stat Lab 11/25/23 12:25 Completed Lactic Acid Stat Lab 11/25/23 12:34 Completed UA W/RFX UR CULTURE Stat Lab 11/25/23 10:49 Ordered Urine Triage Profile Stat Lab 11/25/23 10:49 Ordered Medication Summary Discontinued Medications Generic Name Dose Route Start Last Admin Trade Name Barb PRN Reason Stop Dose Admin Droperidol 1.25 mg 11/25/23 10:48 11/25/23 12:19 Droperidol 5 Mg/2 Ml Vial IV 11/25/23 10:49 1.25 mg STAT ONE Administration Droperidol Confirm 11/25/23 12:17 Droperidol 5 Mg/2 Ml Vial Administered 11/25/23 12:18 Dose 5 mg .ROUTE .STK-MED ONE Sodium Chloride 1,000 mls @ 999 mls/hr 11/25/23 10:48 11/25/23 13:29 Sodium Chloride 0.9% 1000 Ml IV 11/25/23 11:48 Infused .Q1H1M STA Infusion Sodium Chloride Confirm 11/25/23 12:17 Sodium Chloride 0.9% 1000 Ml Administered 11/25/23 12:18 Dose 1,000 mls @ ud .ROUTE .STK-MED ONE Lidocaine HCl Confirm 11/25/23 11:48 Lidocaine - Mpf 2% 5 Ml Vial Administered 11/25/23 11:49 Dose 5 ml .ROUTE .STK-MED ONE Ondansetron HCl Confirm 11/25/23 11:28 Zofran 4 Mg/Udtablet Orally Disintegrating Administered 11/25/23 11:29 Dose 4 mg .ROUTE .STK-MED ONE Ondansetron HCl 4 mg 11/25/23 11:28 11/25/23 11:30 Zofran 4 Mg/Udtablet Orally Disintegrating PO 11/25/23 11:29 4 mg STAT ONE Administration Lab/Rad Data: Laboratory Result Diagrams 11/25/23 12:25 11/25/23 12:25 Laboratory Results 11/25/23 11/25/23 11/25/23 Range/Units 12:34 12:25 12:25 WBC 5.2 (4.0-10.5) x10^3/uL RBC 5.43 (4.1-5.6) x10^6/uL Hgb 16.4 (12.5-18.0) g/dL Hct 47.7 (42-50) % MCV 87.8 (78-100) fL MCH 30.2 (26-32) pg MCHC 34.4 (32-36) g/dL RDW 13.1 (11.5-14.0) % Plt Count 126 L (150-450) x10^3/uL MPV 10.3 (7.5-11.0) fL Gran % 72.7 H (36.0-66.0) % Immature Gran % (Auto) 0.4 (0.00-0.4) % Nucleat RBC Rel Count 0.0 (0.00-0.1) % Eos # (Auto) 0 (0-0.5) x10^3/uL Immature Gran # (Auto) 0.02 (0.00-0.03) x10^3u/L Absolute Lymphs (auto) 0.73 L (1.0-4.6) x10^3/uL Absolute Monos (auto) 0.64 (0.0-1.3) x10^3/uL Absolute Nucleated RBC 0.00 (0.00-0.01) x10^3u/L Lymphocytes % 14.1 L (24.0-44.0) % Monocytes % 12.4 H (0.0-12.0) % Eosinophils % 0.0 (0.00-5.0) % Basophils % 0.4 (0.0-0.4) % Absolute Granulocytes 3.77 (1.4-6.9) x10^3/uL Basophils # 0.02 (0-0.4) x10^3/uL Sodium 127 L (137-145) mmol/L Potassium 3.3 L (3.5-5.1) mmol/L Chloride 94 L (98-107) mmol/L Carbon Dioxide 25 (22-30) mmol/L Anion Gap 12.0 (5-15) MEQ/L BUN 13 (9-20) mg/dL Creatinine 1.43 H (0.66-1.25) mg/dL Estimated GFR 68.5 ML/MIN Glucose 86 (74-106) mg/dL Lactic Acid 1.1 (0.4-2.0) Calcium 7.9 L (8.4-10.2) mg/dL Total Bilirubin 0.70 (0.2-1.3) mg/dL AST 39 (17-59) U/L ALT 21 (0-50) U/L Alkaline Phosphatase 73 (38-126) U/L Serum Total Protein 7.0 (6.3-8.2) g/dL Albumin 3.9 (3.5-5.0) g/dL Lipase 59 (23-300) U/L Influenza Type A Ag (NEGATIVE) Influenza Type B Ag (NEGATIVE) RSV (PCR) (NEGATIVE) SARS-CoV-2 (PCR) (NEGATIVE) Slides for Path Review YES 11/25/23 Range/Units 10:55 WBC (4.0-10.5) x10^3/uL RBC (4.1-5.6) x10^6/uL Hgb (12.5-18.0) g/dL Hct (42-50) % MCV (78-100) fL MCH (26-32) pg MCHC (32-36) g/dL RDW (11.5-14.0) % Plt Count (150-450) x10^3/uL MPV (7.5-11.0) fL Gran % (36.0-66.0) % Immature Gran % (Auto) (0.00-0.4) % Nucleat RBC Rel Count (0.00-0.1) % Eos # (Auto) (0-0.5) x10^3/uL Immature Gran # (Auto) (0.00-0.03) x10^3u/L Absolute Lymphs (auto) (1.0-4.6) x10^3/uL Absolute Monos (auto) (0.0-1.3) x10^3/uL Absolute Nucleated RBC (0.00-0.01) x10^3u/L Lymphocytes % (24.0-44.0) % Monocytes % (0.0-12.0) % Eosinophils % (0.00-5.0) % Basophils % (0.0-0.4) % Absolute Granulocytes (1.4-6.9) x10^3/uL Basophils # (0-0.4) x10^3/uL Sodium (137-145) mmol/L Potassium (3.5-5.1) mmol/L Chloride (98-107) mmol/L Carbon Dioxide (22-30) mmol/L Anion Gap (5-15) MEQ/L BUN (9-20) mg/dL Creatinine (0.66-1.25) mg/dL Estimated GFR ML/MIN Glucose (74-106) mg/dL Lactic Acid (0.4-2.0) Calcium (8.4-10.2) mg/dL Total Bilirubin (0.2-1.3) mg/dL AST (17-59) U/L ALT (0-50) U/L Alkaline Phosphatase (38-126) U/L Serum Total Protein (6.3-8.2) g/dL Albumin (3.5-5.0) g/dL Lipase (23-300) U/L Influenza Type A Ag POSITIVE (NEGATIVE) Influenza Type B Ag NEGATIVE (NEGATIVE) RSV (PCR) NEGATIVE (NEGATIVE) SARS-CoV-2 (PCR) NEGATIVE (NEGATIVE) Slides for Path Review - Progress Progress: unchanged Progress Note: 11/25/23 The patient was fitted with a 7-day Bardy and will follow-up if possible with Dr. Elizabeth verde. Medical Desision Making - Diagnostic Testing Diagnostic test were ordered, analyzed, and reviewed by me: Yes Radiological Interpretation: Reviewed by me - Risk of complications Low Risk: Low risk of morbidity from additional dx testing or treatment - Departure Departure Disposition: Home Clinical Impression: Influenza A Condition: Stable Critical Care Time: No Referrals: EDA NOLASCO MD [Primary Care Provider] - Follow up/PCP as directed Instructions: Flu, Adult (DC) Prescriptions: Ondansetron ODT 4 MG [Zofran Odt 4 mg] 4 mg PO Q6H PRN PRN #10 tablet PRN Reason: Vomiting Oseltamivir 75 mg [Tamiflu 75MG Capsule] 75 mg PO BID #10 cap
--- NOTE | 2023-11-25 12:30 | XRAY ---
Indication: Pain. Comparison: April 30, 2023 Portable chest remains inflated and clear. Heart not enlarged. Bony thorax intact. No new/acute findings.
--- NOTE | 2023-11-25 12:32 | XRAY ---
Indication: Abdomen pain. Multiple contiguous axial images obtained through the abdomen and pelvis using 80 cc Isovue 370 contrast. Comparison: None Lung bases clear. Heart not enlarged. Noncontrasted stomach and bowel loops appear nonobstructed with normal-appearing appendix. Mild diffuse colonic diarrhea. No free fluid/air. Remaining liver, gallbladder, pancreas, spleen, adrenal glands, kidneys, ureters, bladder, and aorta are unremarkable. No pathologic retroperitoneal lymphadenopathy. Osseous structures intact. No ventral or inguinal hernias. Impression: Colonic diarrhea. Remaining CT abdomen/pelvis with contrast exam is negative.
[2023-11-25 12:42] LABS: Absolute Neutrophil Ct (ANC) 3.77 x10^3/uL (1.4-6.9); BASOPHIL % 0.4 % (0.0-0.4); Basophil (Absolute #) 0.02 x10^3/uL (0-0.4); Eosinophil (Absolute #) 0 x10^3/uL (0-0.5); Hematocrit 47.7 % (42-50); Hemoglobin 16.4 g/dL (12.5-18.0); IMMATURE GRAN # 0.02 x10^3u/L (0.00-0.03); IMMATURE GRAN % 0.4 % (0.00-0.4); Lymphocyte (Absolute #) 0.73 x10^3/uL (1.0-4.6); Lymphocytes % 14.1 % (24.0-44.0); Mean Cell Volume 87.8 fL (78-100); Mean Corpuscular Hemoglobin 30.2 pg (26-32); Mean Corpuscular Hgb Concent. 34.4 g/dL (32-36); Mean Platelet Volume 10.3 fL (7.5-11.0); Monocyte (Absolute #) 0.64 x10^3/uL (0.0-1.3); Monocytes % 12.4 % (0.0-12.0); Neutrophil % 72.7 % (36.0-66.0); Platelet Count 126 x10^3/uL (150-450); Red Blood Count 5.43 x10^6/uL (4.1-5.6); Red Cell Distribution Width 13.1 % (11.5-14.0); White Blood Count 5.2 x10^3/uL (4.0-10.5)
[2023-11-25 12:55] LABS: ALBUMIN 3.9 g/dL (3.5-5.0); BILIRUBIN,TOTAL 0.7 mg/dL (0.2-1.3); Calcium 7.9 mg/dL (8.4-10.2); Creatinine 1 1.43 mg/dL (0.66-1.25); EST GLOMERULAR FILTRATION RATE 68.5 ML/MIN; Potassium 3.3 mmol/L (3.5-5.1)
[2023-11-25 13:16] LABS: Slide Review 1 YES
[2023-11-25 13:47] VITALS: PULSE 98
[2023-11-25 14:03] VITALS: BP 119/64; O2SAT 91
== END 2023-11-25 14:15 | disposition home or self-care (01) ==
LOC: ED 10:30
DX: J10.1 Influenza due to other identified influenza virus with other respiratory manifestations (principal); R11.10 Vomiting, unspecified; R06.02 Shortness of breath; R05.9 Cough, unspecified; R10.9 Unspecified abdominal pain; Z79.899 Other long term (current) drug therapy; Z28.310 Unvaccinated for COVID-19; Z72.0 Tobacco use
CPT/HCPCS: 0241U; 36000; 36410; 36415; 71045; 74177; 76942; 80053; 83605; 83690; 85025; 96360; 96374; 99284; Q0162

== ENCOUNTER 2024-03-10 15:50 | Emergency (ER) | payer OTHER ==
[2024-03-10 16:11] VITALS: BP 136/76; TEMP 98.7
[2024-03-10 16:41] LABS: Absolute Neutrophil Ct (ANC) 7.37 x10^3/uL (1.4-6.9); BASOPHIL % 0.9 % (0.0-0.4); Eosinophil % 4.3 % (0.00-5.0); Eosinophil (Absolute #) 0.48 x10^3/uL (0-0.5); Hemoglobin 15.3 g/dL (12.5-18.0); IMMATURE GRAN # 0.04 x10^3u/L (0.00-0.03); IMMATURE GRAN % 0.4 % (0.00-0.4); Lymphocyte (Absolute #) 2.38 x10^3/uL (1.0-4.6); Lymphocytes % 21.3 % (24.0-44.0); Mean Cell Volume 90.2 fL (78-100); Mean Corpuscular Hgb Concent. 33.3 g/dL (32-36); Mean Platelet Volume 9.7 fL (7.5-11.0); Monocyte (Absolute #) 0.81 x10^3/uL (0.0-1.3); Monocytes % 7.2 % (0.0-12.0); Neutrophil % 65.9 % (36.0-66.0); Platelet Count 276 x10^3/uL (150-450); Red Cell Distribution Width 13.7 % (11.5-14.0); White Blood Count 11.2 x10^3/uL (4.0-10.5)
[2024-03-10 16:44] VITALS: O2SAT 94
[2024-03-10 16:53] LABS: ACETAMINOPHEN < 10 ug/ml (10-30); ETHYL ALCOHOL < 10 mg/dL (0-10); SALICYLATE < 1.0 mg/dL (2-20)
[2024-03-10 16:54] LABS: ALBUMIN 4.4 g/dL (3.5-5.0); ANION GAP 12.8 MEQ/L (5-15); BILIRUBIN,TOTAL 0.7 mg/dL (0.2-1.3); Calcium 9.3 mg/dL (8.4-10.2); EST GLOMERULAR FILTRATION RATE 104.5 ML/MIN; Total Protein 7.6 g/dL (6.3-8.2)
--- NOTE | 2024-03-10 17:03 | XRAY ---
Indication: Pain following injury. Comparison: September 17, 2023 3 nonweightbearing views right foot again demonstrates 1st IP joint arthrodesis with intact hardware. No new/acute bony, articular, or soft tissue abnormalities.
--- NOTE | 2024-03-10 17:03 | XRAY ---
Indication: Pain following injury. Comparison: None 3 view right knee obtained. No bony, articular, or soft tissue abnormalities.
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
[2024-03-10 17:39] VITALS: PULSE 93; RESP 27
== END 2024-03-10 17:40 | disposition left against medical advice (07) ==
LOC: ED 15:50
DX: M25.561 Pain in right knee (principal); M25.571 Pain in right ankle and joints of right foot; V89.2XXA Person injured in unspecified motor-vehicle accident, traffic, initial encounter
CPT/HCPCS: 36415; 73562; 73630; 80053; 80143; 80179; 82077; 84484; 85025; 93005; 93041; 94760; 99284

== ENCOUNTER 2024-11-03 09:59 | Emergency (ER) | payer OTHER ==
[2024-11-03 10:41] VITALS: PULSE 81; TEMP 97
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
[2024-11-03 11:25] LABS: Absolute Neutrophil Ct (ANC) 9.19 x10^3/uL (1.78-5.38); BASOPHIL % 0.9 % (0.2-1.2); Basophil (Absolute #) 0.12 x10^3/uL (0.01-0.08); Eosinophil (Absolute #) 0.64 x10^3/uL (0.04-0.54); Hematocrit 45.9 % (40.1-51.0); Hemoglobin 15.3 g/dL (13.7-17.5); IMMATURE GRAN # 0.05 x10^3u/L (0.001-0.031); IMMATURE GRAN % 0.4 % (0.001-0.429); Lymphocyte (Absolute #) 1.78 x10^3/uL (1.32-3.57); Lymphocytes % 13.9 % (21.8-53.1); Mean Cell Volume 88.8 fL (79.0-92.2); Mean Corpuscular Hemoglobin 29.6 pg (25.7-32.2); Mean Corpuscular Hgb Concent. 33.3 g/dL (32.3-36.5); Mean Platelet Volume 9.5 fL (9.4-12.4); Monocyte (Absolute #) 1.02 x10^3/uL (0.30-0.82); Neutrophil % 71.8 % (34.0-67.9); Platelet Count 320 x10^3/uL (163-337); Red Blood Count 5.17 x10^6/uL (4.63-6.08); Red Cell Distribution Width 12.5 % (11.6-14.4); White Blood Count 12.8 x10^3/uL (4.23-9.07)
[2024-11-03 11:28] VITALS: BP 148/96
[2024-11-03 11:38] LABS: ALBUMIN 4.3 g/dL (3.5-5.0); ANION GAP 10.9 MEQ/L (5-15); BILIRUBIN,TOTAL 0.5 mg/dL (0.2-1.3); Calcium 9.2 mg/dL (8.4-10.2); Creatinine 1 0.79 mg/dL (0.66-1.25); EST GLOMERULAR FILTRATION RATE 123.3 ML/MIN; Potassium 4.1 mmol/L (3.5-5.1); Total Protein 7.5 g/dL (6.3-8.2)
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
[2024-11-03 11:59] LABS: Appearance Clear (Clear); Bacteria None Seen /HPF (None Seen); Bilirubin Negative (Negative); Blood Negative (Negative); Epithelial Cells None Seen /HPF (None Seen); Glucose, Urine Negative (Negative); Hyaline Casts NONE SEEN /LPF (0-2); Ketones Negative (Negative); Leukocyte Esterase Negative (Negative); Nitrite Negative (Negative); Protein,Urine Dip Negative (Negative); RBC 0-2 /HPF (0-5); WBC 0-2 /HPF (0-5)
[2024-11-03 12:10] LABS: Barbiturate,Urine NEGATIVE (NEGATIVE); Benzodiazepine,Urine NEGATIVE (NEGATIVE); Cocaine,Urine NEGATIVE (NEGATIVE); Methadone,Urine NEGATIVE (NEGATIVE); Opiate,Urine NEGATIVE (NEGATIVE); PCP,Urine NEGATIVE (NEGATIVE); THC,Urine NEGATIVE (NEGATIVE)
[2024-11-03 13:14] LABS: Amphetamine,Urine POSITIVE (NEGATIVE)
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
[2024-11-03 14:11] VITALS: O2SAT 99
== END 2024-11-03 14:05 | disposition left against medical advice (07) ==
LOC: ED 09:59
DX: S03.03XA Dislocation of jaw, bilateral, initial encounter (principal); R68.84 Jaw pain; M54.50 Low back pain, unspecified; M54.2 Cervicalgia; M54.6 Pain in thoracic spine; M79.642 Pain in left hand; M79.641 Pain in right hand; Y04.2XXA Assault by strike against or bumped into by another person, initial encounter; K56.49 Other impaction of intestine; J32.9 Chronic sinusitis, unspecified
CPT/HCPCS: 36415; 70450; 70486; 71260; 72125; 73130; 74177; 76376; 80053; 80307; 81001; 85025; 99284; 99285